=== PATIENT | female | born 1940 | race Caucasian/White ===

== ENCOUNTER → 2016-12-09 | Outpatient (CLI) | payer MEDICARE, BC ==
--- NOTE | 2016-12-09 14:21 | BD ---
EXAMINATION TYPE: MG DEXA axial skeleton. DATE OF EXAM: 12/09/2016 1:07 PM COMPARISON: Previous study dated 08/08/2014 CLINICAL HISTORY: Height: 58 IN Weight: 135 LBS FRAX RISK QUESTIONS: Alcohol (3 or more units per day): NO Family History (Parent hip fracture): NO Glucocorticoids (More than 3mos): NO (Ex: prednisone, prednisolone, methylprednisolone, dexamethasone, and hydrocortisone). History of Fracture in Adulthood: NO Secondary Osteoporosis: 1. Type 1 Diabetes: NO 2. Hyperthyroidism: NO 3. Menopause before 45: AGE 47 4. Malnutrition: NO 5. Chronic liver disease: NO Rheumatoid Arthritis: NO Current Tobacco Use: NO RISK FACTORS HISTORY OF: Active: YES Postmenopausal woman: YES AGE 47 MEDICATIONS: Thyroid Medications: YES Which medication: Levothyroxine How Lon+ YRS Osteoporosis Medications: YES Which medication: Actonel How Lon+ YRS Additional Medications: CALCIUM, VIT D, LEVOTHYROXINE, ACTONEL,AMLOD, OXYCARBAGEPIN, SIMVASTAQTIN,CIT RACAL, OCUVITE, BIOTIN, PB8,VIT B12, LOW ASPIRIN, FOLIC ACID EXAM MEASUREMENTS: Bone mineral densitometry was performed using the [facility]. Bone mineral density as measured about the Lumbar spine is: ----- L1-L4(G/cm2): 1.080 T Score Values are as follows: ----- L2: -1.3 ----- L3: -0.9 ----- L4: -0.6 ----- L1-L4: -0.8 Bone mineral density has: Increased 1.5% since study of: 08/08/2014 Bone mineral density about the R hip (g/cm2): 0.806 Bone mineral density about the L hip (g/cm2): 0.763 T Score values are as follows: -----R Neck: -1.7 -----L Neck: -2.0 -----R Intertrochanter: -1.0 -----L Intertrochanter: -0.9 Bone mineral density has: Decreased -1.1% since study of: 08/08/2014 IMPRESSION: Osteopenia (T Score between -2.5 and -1 as noted by T score values There is slightly increased risk of fracture and the patient may be considered for treatment. Re-Screen 1-2 years. LEONID HIPS AND L2 MAJOR OSTEOPOROTIC FRACTURE RISK: 12.8% HIP FRACTURE: 3.1% NOTE: T-SCORE=SD OF THE YOUNG ADULT MEAN.
== END | disposition home or self-care (01) ==
LOC: RADBDWWP 13:05
PROVIDERS: ATTEND Family Medicine
DX: M85.852 Other specified disorders of bone density and structure, left thigh (principal); M85.851 Other specified disorders of bone density and structure, right thigh; M85.88 Other specified disorders of bone density and structure, other site
CPT/HCPCS: 77080

== ENCOUNTER → 2017-02-22 | Outpatient (CLI) | payer MEDICARE, BC | END | disposition home or self-care (01) | LOC: RADECHMAIN 12:05 | PROVIDERS: ATTEND Family Medicine | DX: I47.1 Supraventricular tachycardia (principal) | CPT/HCPCS: 93225; 93226 ==

== ENCOUNTER 2017-07-20 09:17 | Day surgery (SDC) | payer MEDICARE, BC ==
[2017-07-19 10:26] VITALS: BMI 27.0
[~2017-07-20 09:17] MED LIST: LACTATED RINGERS 1,000 ML IV SCH; MIDAZOLAM 2 MG/2 ML VIAL ONE; PROPOFOL 10 MG/ML 20 ML VIAL IV ONE; fentaNYL (PF) 50 MCG/ML 2 ML AMP ONE
[2017-07-20] MEDS ORDERED: LIDOCAINE 1% 20 ML VIAL (10MG/ML) FOR IV START INTRADERMA ONE (09:42)
[2017-07-20 09:48] VITALS: RESP 16; TEMP 97
[2017-07-20] MEDS ORDERED: PROPOFOL 10 MG/ML 20 ML VIAL IV ONE (10:34)
--- NOTE | 2017-07-20 10:40 | P.GSHP ---
History of Present Illness H&P Date: 07/20/17 Chief Complaint: GI bleed 's is a 76-year-old female referred from Dr. Osuna. Patient presents today for EGD colonoscopy. She's had issues with GI bleed. She see bright red blood per rectum. Past Medical History Past Medical History: Deep Vein Thrombosis (DVT), GERD/Reflux, Hypertension, Seizure Disorder, Thyroid Disorder Additional Past Medical History / Comment(s): LAST SEIZURE A CHILD., STATES CRAMPS AFTER EATING AND BM. History of Any Multi-Drug Resistant Organisms: None Reported Past Surgical History: Breast Surgery, Cholecystectomy, Tonsillectomy Additional Past Surgical History / Comment(s): BREAST REDUCTION Past Anesthesia/Blood Transfusion Reactions: No Reported Reaction Past Psychological History: No Psychological Hx Reported Smoking Status: Never smoker Past Alcohol Use History: Occasional Past Drug Use History: None Reported - Past Family History Mother Family Medical History: No Reported History Medications and Allergies Home Medications Medication Instructions Recorded Confirmed Type Alendronate Sodium [Fosamax] 70 mg PO WE 07/19/17 07/19/17 History Biotin 5 mg PO DAILY 07/19/17 07/19/17 History Calcium Carb/Vitamin D3/Vit K1 1 each PO DAILY 07/19/17 07/19/17 History [Citracal Soft Chew] Cholecalciferol [Vitamin D3] 1,000 unit PO DAILY 07/19/17 07/19/17 History Dicyclomine HCl 10 mg PO TID PRN 07/19/17 07/19/17 History Folic Acid 1 tab PO DAILY 07/19/17 History L.acidoph,Paracasei, B.lactis 1 each PO DAILY 07/19/17 07/19/17 History [Probiotic] Levothyroxine Sodium [Synthroid] 25 mcg PO DAILY 07/19/17 07/19/17 History OXcarbazepine [Trileptal] 150 mg PO BID 07/19/17 07/19/17 History Occuvite 1 tab PO DAILY 07/19/17 History Omeprazole [PriLOSEC] 20 mg PO BID 07/19/17 07/19/17 History Simvastatin [Zocor] 10 mg PO DAILY 07/19/17 07/19/17 History Vitamin B-12 1 tab PO DAILY 07/19/17 History amLODIPine BESYLATE/BENAZEPRIL 1 cap PO DAILY 07/19/17 07/19/17 History [amLODIPine BESYLATE/BENAZEPRIL 5-20 mg] Allergies Allergy/AdvReac Type Severity Reaction Status Date / Time No Known Allergies Allergy Verified 07/19/17 09:55 Surgical - Exam Vital Signs Temp Pulse Resp BP Pulse Ox 97.0 F L 97 16 154/67 97 07/20/17 09:45 07/20/17 09:45 07/20/17 09:45 07/20/17 09:45 07/20/17 09:45 - General well developed, no distress - Eyes PERRL - ENT normal pinna - Neck no masses - Respiratory normal expansion - Cardiovascular Rhythm: regular - Abdomen Abdomen: soft, non tender Assessment and Plan Plan: GI bleed. We'll perform EGD and colonoscopy.
--- NOTE | 2017-07-20 11:10 | P.OP ---
Date of Procedure: 07/20/17 Preoperative Diagnosis: GI bleed Postoperative Diagnosis: Antral gastritis Large hiatal hernia Esophagitis Diverticulosis External hemorrhoids Procedure(s) Performed: Colonoscopy Implants: Anesthesia: MAC Surgeon: Ulices Wiley Pathology: other (Antrum, esophagus) Condition: stable Disposition: PACU Indications for Procedure: Operative Findings: Description of Procedure: The patient was placed on the endoscopy table in the lateral position. She received IV sedation. The gastroscope placed oropharynx and passed into the esophagus and into the stomach. Scope was then placed through the pylorus. The first and second portion of the duodenum appeared normal. The scope was then brought back the antrum and this appeared mildly inflamed. A biopsies performed. The scope was retroflexed and the remainder stomach appeared normal. There was a large hiatal hernia. The GE junction was at 35 cm. The distal esophagus appeared inflamed a biopsies performed. The proximal esophagus appeared normal. Scope was withdrawn for patient. Next digital rectal exam was performed which revealed external hemorrhoids. Flexible colonoscope was then placed patient anus passed throughout the entire colon. The ileocecal valve was visualized. The cecum, ascending and transverse colon appeared normal. In the descending; there is mild diverticular changes. Scope was then brought back the rectum and this appeared normal. Scope was withdrawn for patient.
[2017-07-20 14:11] VITALS: BP 134/63; PULSE 68
== END 2017-07-20 11:47 | disposition home or self-care (01) ==
LOC: ORWHC2ENDO 09:17
PROVIDERS: ATTEND Surgery
DX: K29.50 Unspecified chronic gastritis without bleeding (principal); K21.0 Gastro-esophageal reflux disease with esophagitis; K44.9 Diaphragmatic hernia without obstruction or gangrene; K64.4 Residual hemorrhoidal skin tags; K57.30 Diverticulosis of large intestine without perforation or abscess without bleeding; I10 Essential (primary) hypertension; Z86.718 Personal history of other venous thrombosis and embolism; E07.9 Disorder of thyroid, unspecified; G40.909 Epilepsy, unspecified, not intractable, without status epilepticus; Z79.899 Other long term (current) drug therapy
CPT/HCPCS: 88305; 88342; 45378; 43239; J2704

== ENCOUNTER 2017-12-03 10:59 | Emergency (ER) | payer MEDICARE, BC ==
--- NOTE | 2017-12-03 11:52 | ED ---
General Adult HPI - General Chief complaint: Arrhythmia/Palpitations Stated complaint: Palpitations Time Seen by Provider: 12/03/17 11:34 Source: patient, family, RN notes reviewed Mode of arrival: wheelchair Limitations: no limitations - History of Present Illness Initial comments: Patient is a pleasant 77-year-old female presenting to the emergency Department with palpitations. Symptoms have been intermittent over the past few days. Patient states episodes last for several minutes, up to maybe 20 minutes today. Patient has 3-4 episodes daily. Patient originally states no history of similar symptoms previously. then arrives and states the symptoms have been going on for years. Patient does agree that symptoms have been going on for years. No chest pain. No dyspnea. No syncopal episodes. - Related Data Home Medications Medication Instructions Recorded Confirmed Alendronate Sodium [Fosamax] 70 mg PO WE 07/19/17 12/03/17 Calcium Carb/Vitamin D3/Vit K1 1 tab PO DAILY 07/19/17 12/03/17 [Citracal Soft Chew] Cholecalciferol [Vitamin D3] 5,000 unit PO DAILY 07/19/17 12/03/17 Levothyroxine Sodium [Synthroid] 25 mcg PO DAILY 07/19/17 12/03/17 OXcarbazepine [Trileptal] 150 mg PO BID 07/19/17 12/03/17 Simvastatin [Zocor] 10 mg PO HS 07/19/17 12/03/17 Benazepril HCl 20 mg PO DAILY 08/14/17 12/03/17 Biotin 10,000 mcg PO DAILY 08/14/17 12/03/17 Cyanocobalamin [Vitamin B-12] 500 mcg PO DAILY 08/14/17 12/03/17 Vits A,C,E/Lutein/Minerals 1 tab PO DAILY 08/14/17 12/03/17 [Ocuvite with Lutein Tablet] amLODIPine [Norvasc] 5 mg PO DAILY 08/14/17 12/03/17 Famotidine [Pepcid] 20 mg PO DAILY 12/03/17 12/03/17 Allergies Allergy/AdvReac Type Severity Reaction Status Date / Time No Known Allergies Allergy Verified 12/03/17 11:23 Review of Systems ROS Statement: Those systems with pertinent positive or pertinent negative responses have been documented in the HPI. ROS Other: All systems not noted in ROS Statement are negative. Constitutional: Denies: fever Eyes: Denies: eye pain ENT: Denies: ear pain Respiratory: Denies: cough, dyspnea Cardiovascular: Reports: palpitations. Denies: chest pain Endocrine: Denies: fatigue Gastrointestinal: Denies: abdominal pain Genitourinary: Denies: dysuria Musculoskeletal: Denies: back pain Skin: Denies: rash Neurological: Denies: weakness Past Medical History Past Medical History: Deep Vein Thrombosis (DVT), GERD/Reflux, Hypertension, Seizure Disorder, Thyroid Disorder Additional Past Medical History / Comment(s): LAST SEIZURE A CHILD., STATES CRAMPS AFTER EATING AND BM. History of Any Multi-Drug Resistant Organisms: None Reported Past Surgical History: Breast Surgery, Cholecystectomy, Tonsillectomy Additional Past Surgical History / Comment(s): BREAST REDUCTION Past Anesthesia/Blood Transfusion Reactions: No Reported Reaction Past Psychological History: No Psychological Hx Reported Smoking Status: Never smoker Past Alcohol Use History: Occasional Past Drug Use History: None Reported - Past Family History Mother Family Medical History: No Reported History General Exam Limitations: no limitations General appearance: alert, in no apparent distress Head exam: Present: atraumatic Eye exam: Present: normal appearance, PERRL ENT exam: Present: normal oropharynx Neck exam: Present: normal inspection Respiratory exam: Present: normal lung sounds bilaterally. Absent: chest wall tenderness Cardiovascular Exam: Present: regular rate, normal rhythm Expanded Peripheral pulses: 2+: Radial (R), Radial (L), Dorsalis Pedis (R), Dorsalis Pedis (L) GI/Abdominal exam: Present: soft. Absent: tenderness Extremities exam: Present: normal inspection. Absent: pedal edema, calf tenderness Neurological exam: Present: alert, oriented X3, CN II-XII intact. Absent: motor sensory deficit Expanded Motor strength exam: RUE: 5, LUE: 5, RLE: 5, LLE: 5 Psychiatric exam: Present: normal affect, normal mood Skin exam: Present: normal color Course Vital Signs 12/03/17 12/03/17 11:04 12:07 Temperature 97.5 F L Pulse Rate 85 61 Respiratory 17 16 Rate Blood Pressure 172/77 161/72 O2 Sat by Pulse 94 L 99 Oximetry EKG Findings - EKG Comments: EKG Findings:: Normal sinus rhythm 80. MO 168. QRS 90. QT 378. QTC 435. Normal axis. LVH. No acute ST change. Medical Decision Making - Medical Decision Making Patient reevaluated and resting comfortably in bed. Patient remained symptom- free at this time. Patient and family updated on results and need for follow- up. - Lab Data Result diagrams: 12/03/17 11:18 12/03/17 11:18 Lab Results 12/03/17 12/03/17 12/03/17 Range/Units 11:18 11:18 11:18 WBC 9.6 (3.8-10.6) k/uL RBC 4.82 (3.80-5.40) m/uL Hgb 14.8 (11.4-16.0) gm/dL Hct 45.4 (34.0-46.0) % MCV 94.2 (80.0-100.0) fL MCH 30.6 (25.0-35.0) pg MCHC 32.5 (31.0-37.0) g/dL RDW 14.4 (11.5-15.5) % Plt Count 237 (150-450) k/uL Neutrophils % 73 % Lymphocytes % 17 % Monocytes % 7 % Eosinophils % 1 % Basophils % 0 % Neutrophils # 7.0 (1.3-7.7) k/uL Lymphocytes # 1.6 (1.0-4.8) k/uL Monocytes # 0.7 (0-1.0) k/uL Eosinophils # 0.1 (0-0.7) k/uL Basophils # 0.0 (0-0.2) k/uL PT (9.0-12.0) sec INR (<1.2) APTT (22.0-30.0) sec Sodium 141 (137-145) mmol/L Potassium 5.2 H (3.5-5.1) mmol/L Chloride 101 (98-107) mmol/L Carbon Dioxide 28 (22-30) mmol/L Anion Gap 12 mmol/L BUN 19 H (7-17) mg/dL Creatinine 0.80 (0.52-1.04) mg/dL Est GFR (MDRD) Af Amer >60 (>60 ml/min/1.73 sqM) Est GFR (MDRD) Non-Af >60 (>60 ml/min/1.73 sqM) Glucose 98 (74-99) mg/dL Calcium 10.2 (8.4-10.2) mg/dL Magnesium 2.1 (1.6-2.3) mg/dL Total Bilirubin 0.4 (0.2-1.3) mg/dL AST 28 (14-36) U/L ALT 24 (9-52) U/L Alkaline Phosphatase 54 (38-126) U/L Total Creatine Kinase 48 (30-135) U/L CK-MB (CK-2) 0.8 (0.0-2.4) ng/mL CK-MB (CK-2) Rel Index 1.7 Troponin I <0.012 (0.000-0.034) ng/mL Total Protein 7.8 (6.3-8.2) g/dL Albumin 4.9 (3.5-5.0) g/dL TSH 0.359 L (0.465-4.680) mIU/L Free T4 0.97 (0.78-2.19) ng/dL Free T3 pg/mL 3.4 (2.8-5.3) pg/ml Urine Color Urine Appearance (Clear) Urine pH (5.0-8.0) Ur Specific [place] (1.001-1.035) Urine Protein (Negative) Urine Glucose (UA) (Negative) Urine Ketones (Negative) Urine Blood (Negative) Urine Nitrite (Negative) Urine Bilirubin (Negative) Urine Urobilinogen (<2.0) mg/dL Ur Leukocyte Esterase (Negative) 12/03/17 12/03/17 Range/Units 11:18 12:44 WBC (3.8-10.6) k/uL RBC (3.80-5.40) m/uL Hgb (11.4-16.0) gm/dL Hct (34.0-46.0) % MCV (80.0-100.0) fL MCH (25.0-35.0) pg MCHC (31.0-37.0) g/dL RDW (11.5-15.5) % Plt Count (150-450) k/uL Neutrophils % % Lymphocytes % % Monocytes % % Eosinophils % % Basophils % % Neutrophils # (1.3-7.7) k/uL Lymphocytes # (1.0-4.8) k/uL Monocytes # (0-1.0) k/uL Eosinophils # (0-0.7) k/uL Basophils # (0-0.2) k/uL PT 9.7 (9.0-12.0) sec INR 1.0 (<1.2) APTT 25.0 (22.0-30.0) sec Sodium (137-145) mmol/L Potassium (3.5-5.1) mmol/L Chloride (98-107) mmol/L Carbon Dioxide (22-30) mmol/L Anion Gap mmol/L BUN (7-17) mg/dL Creatinine (0.52-1.04) mg/dL Est GFR (MDRD) Af Amer (>60 ml/min/1.73 sqM) Est GFR (MDRD) Non-Af (>60 ml/min/1.73 sqM) Glucose (74-99) mg/dL Calcium (8.4-10.2) mg/dL Magnesium (1.6-2.3) mg/dL Total Bilirubin (0.2-1.3) mg/dL AST (14-36) U/L ALT (9-52) U/L Alkaline Phosphatase (38-126) U/L Total Creatine Kinase (30-135) U/L CK-MB (CK-2) (0.0-2.4) ng/mL CK-MB (CK-2) Rel Index Troponin I (0.000-0.034) ng/mL Total Protein (6.3-8.2) g/dL Albumin (3.5-5.0) g/dL TSH (0.465-4.680) mIU/L Free T4 (0.78-2.19) ng/dL Free T3 pg/mL (2.8-5.3) pg/ml Urine Color Light Yellow Urine Appearance Clear (Clear) Urine pH 7.0 (5.0-8.0) Ur Specific [place] 1.008 (1.001-1.035) Urine Protein Negative (Negative) Urine Glucose (UA) Negative (Negative) Urine Ketones Negative (Negative) Urine Blood Negative (Negative) Urine Nitrite Negative (Negative) Urine Bilirubin Negative (Negative) Urine Urobilinogen <2.0 (<2.0) mg/dL Ur Leukocyte Esterase Negative (Negative) - Radiology Data Interpreted by me: Chest x-ray shows no acute process Disposition Clinical Impression: Palpitations Disposition: HOME SELF-CARE Condition: Stable Instructions: Palpitations (ED) Additional Instructions: Please follow-up with Dr. Osuna and cardiology in the next couple days for recheck. Consider Holter monitor. Consider echo. Return for increased heart rate, passing out, pain or difficulty breathing, worsening symptoms or other concerns. Referrals: Evangelista Osuna DO [Primary Care Provider] - 1-2 days Time of Disposition: 13:16
[2017-12-03 12:18] LABS: Basophils % (A) 0 %; Eosinophils # (A) 0.1 k/uL (0-0.7); Eosinophils % (A) 1 %; HCT 45.4 % (34.0-46.0); HGB 14.8 gm/dL (11.4-16.0); Lymphocytes # (A) 1.6 k/uL (1.0-4.8); Lymphocytes % (A) 17 %; MCH 30.6 pg (25.0-35.0); MCHC 32.5 g/dL (31.0-37.0); MCV 94.2 fL (80.0-100.0); Mean Platelet Volume 7.8; Monocytes # (A) 0.7 k/uL (0-1.0); Monocytes % (A) 7 %; Neutrophils % (A) 73 %; Platelet Count 237 k/uL (150-450); RBC 4.82 m/uL (3.80-5.40); RDW 14.4 % (11.5-15.5); WBC 9.6 k/uL (3.8-10.6)
[2017-12-03 12:22] LABS: ALT 24 U/L (9-52); AST 28 U/L (14-36); Albumin 4.9 g/dL (3.5-5.0); Alkaline Phosphatase 54 U/L (38-126); Anion Gap 12 mmol/L; Blood Urea Nitrogen 19 mg/dL (7-17); Calcium 10.2 mg/dL (8.4-10.2); Carbon Dioxide 28 mmol/L (22-30); Chloride 101 mmol/L (98-107); Glucose 98 mg/dL (74-99); Magnesium 2.1 mg/dL (1.6-2.3); Potassium 5.2 mmol/L (3.5-5.1); Sodium 141 mmol/L (137-145); Total Bilirubin 0.4 mg/dL (0.2-1.3); Total Protein 7.8 g/dL (6.3-8.2)
[2017-12-03 12:26] LABS: Creatine Kinase 48 U/L (30-135)
[2017-12-03 12:32] LABS: Prothrombin Time 9.7 sec (9.0-12.0)
[2017-12-03 12:38] LABS: T4, Free (Free Thyroxine) 0.97 ng/dL (0.78-2.19)
[2017-12-03 12:40] LABS: Creatine Kinase MB 0.8 ng/mL (0.0-2.4); Troponin I <0.012 ng/mL (0.000-0.034)
[2017-12-03 13:03] LABS: Appearance,Urine Clear (Clear); Bilirubin,Urine Negative (Negative); Blood,Urine Negative (Negative); Color,Urine Light Yellow; Glucose,Urine (UA) Negative (Negative); Ketones,Urine Negative (Negative); Leukocyte Esterase,Urine Negative (Negative); Nitrite,Urine Negative (Negative); Protein,Urine Negative (Negative); Specific Gravity,Urine 1.008 (1.001-1.035); Urobilinogen,Urine <2.0 mg/dL (<2.0)
--- NOTE | 2017-12-03 13:25 | XR ---
EXAMINATION TYPE: XR chest 2V DATE OF EXAM: 12/03/2017 COMPARISON: NONE HISTORY: Erratic heart rate. Chest pain. TECHNIQUE: Frontal and lateral views of the chest are obtained. FINDINGS: There is no focal air space opacity, pleural effusion, or pneumothorax seen. The cardiac silhouette size is within normal limits. The osseous structures are intact. Cholecystectomy clips a re noted within the right upper quadrant. IMPRESSION: No acute cardiopulmonary process.
[2017-12-03 13:27] VITALS: BP 142/67; PULSE 60; RESP 17; TEMP 97.7
== END 2017-12-03 13:30 | disposition home or self-care (01) ==
LOC: EC 10:59
DX: R00.2 Palpitations (principal); K21.9 Gastro-esophageal reflux disease without esophagitis; I10 Essential (primary) hypertension; E07.9 Disorder of thyroid, unspecified; Z86.69 Personal history of other diseases of the nervous system and sense organs; Z79.899 Other long term (current) drug therapy
CPT/HCPCS: 36415; 71046; 80053; 81003; 82550; 82553; 83735; 84439; 84443; 84481; 84484; 85025; 85610; 85730; 93005; 99285

== ENCOUNTER → 2018-03-08 | Outpatient (CLI) | payer MEDICARE, BC ==
--- NOTE | 2018-03-08 13:46 | US ---
EXAMINATION TYPE: US pelvic complete DATE OF EXAM: 03/08/2018 COMPARISON: CT abdomen pelvis January 07, 2014 CLINICAL HISTORY: R10.2 pelvic pain. Pelvic cramping, bloating, prolapsed uterus TECHNIQUE: Transabdominal (TA). Transabdominal sonographic images of the pelvis were acquired. Tra nsvaginal not done due to prolapsed uterus Date of LMP: unknown EXAM MEASUREMENTS: Uterus: 7.6 x 3.8 x 4.7 cm Endometrial Stripe: 0.4 cm Right Ovary: unable to visualize Left Ovary: unable to visualize 1. Uterus: Anteverted heterogeneous 2. Endometrium: appears wnl as visualized 3. Right Ovary: Obscured by overlying bowel gas 4. Left Ovary: Obscured by overlying bowel gas 5. Bilateral Adnexa: appears wnl 6. Posterior cul-de-sac: wnl Visualized uterus is heterogeneous and anteverted on transabdominal investigation. Endometrium is not well seen and presumed atrophic. IMPRESSION: No significant findings seen on transabdominal pelvic ultrasound to account for patient's symptoms.
== END | disposition home or self-care (01) ==
LOC: RADUSWWP 11:48
PROVIDERS: ATTEND Obstetrics & Gynecology
DX: R10.2 Pelvic and perineal pain (principal)
CPT/HCPCS: 76856

== ENCOUNTER 2018-08-17 08:14 | Inpatient (IN) | payer MEDICARE, BC ==
[2018-08-17] MEDS ORDERED: DILTIAZEM DRIP BOLUS FROM BAG 1 MG SOLN IV ONE (08:28)
--- NOTE | 2018-08-17 08:43 | ED ---
General Adult HPI - General Chief complaint: Shortness of Breath Stated complaint: SOB Time Seen by Provider: 08/17/18 08:21 Source: patient, EMS, RN notes reviewed, old records reviewed Mode of arrival: EMS Limitations: no limitations - History of Present Illness Initial comments: 77-year-old female presents with chief complaint dyspnea and palpitations. Patient's symptoms began this morning. She does report a previous history of irregular heartbeat. She is not on any rate controlling medication or anticoagulants. She is found by EMS to be in A. fib with RVR. She states that she's had some mild nausea associated with her symptoms. She does report a cough which is productive of white sputum. No history of COPD or asthma. Patient never smoked. Denies lower extremity swelling or pain. Patient's symptoms began this morning, with no significant preceding symptoms. Denies central chest pain. - Related Data Home Medications Medication Instructions Recorded Confirmed Alendronate Sodium [Fosamax] 70 mg PO WE 07/19/17 08/17/18 Calcium Carb/Vitamin D3/Vit K1 1 tab PO DAILY 07/19/17 08/17/18 [Citracal Soft Chew] Cholecalciferol [Vitamin D3] 5,000 unit PO DAILY 07/19/17 08/17/18 Levothyroxine Sodium [Synthroid] 25 mcg PO DAILY 07/19/17 08/17/18 OXcarbazepine [Trileptal] 150 mg PO BID 07/19/17 08/17/18 Simvastatin [Zocor] 10 mg PO HS 07/19/17 08/17/18 Benazepril HCl 20 mg PO DAILY 08/14/17 08/17/18 Biotin 10,000 mcg PO DAILY 08/14/17 08/17/18 Cyanocobalamin [Vitamin B-12] 500 mcg PO DAILY 08/14/17 08/17/18 Vits A,C,E/Lutein/Minerals 1 tab PO DAILY 08/14/17 08/17/18 [Ocuvite with Lutein Tablet] amLODIPine [Norvasc] 5 mg PO DAILY 08/14/17 08/17/18 Famotidine [Pepcid] 20 mg PO DAILY 12/03/17 08/17/18 Allergies Allergy/AdvReac Type Severity Reaction Status Date / Time No Known Allergies Allergy Verified 08/17/18 08:53 Review of Systems ROS Statement: Those systems with pertinent positive or pertinent negative responses have been documented in the HPI. ROS Other: All systems not noted in ROS Statement are negative. Past Medical History Past Medical History: Deep Vein Thrombosis (DVT), GERD/Reflux, Hypertension, Seizure Disorder, Thyroid Disorder Additional Past Medical History / Comment(s): LAST SEIZURE A CHILD., STATES CRAMPS AFTER EATING AND BM. History of Any Multi-Drug Resistant Organisms: None Reported Past Surgical History: Breast Surgery, Cholecystectomy, Tonsillectomy Additional Past Surgical History / Comment(s): BREAST REDUCTION Past Anesthesia/Blood Transfusion Reactions: No Reported Reaction Past Psychological History: No Psychological Hx Reported Smoking Status: Never smoker Past Alcohol Use History: Occasional Past Drug Use History: None Reported - Past Family History Mother Family Medical History: No Reported History General Exam Limitations: no limitations General appearance: alert, in no apparent distress Head exam: Present: atraumatic, normocephalic Eye exam: Present: normal appearance, PERRL ENT exam: Present: normal exam Neck exam: Present: normal inspection. Absent: tenderness Respiratory exam: Present: normal lung sounds bilaterally. Absent: respiratory distress, wheezes Cardiovascular Exam: Present: tachycardia, irregular rhythm GI/Abdominal exam: Present: soft. Absent: distended, tenderness Extremities exam: Present: normal inspection, normal capillary refill. Absent: pedal edema Neurological exam: Present: alert, oriented X3, CN II-XII intact. Absent: motor sensory deficit Psychiatric exam: Present: normal affect, normal mood Skin exam: Present: warm, dry, intact. Absent: cyanosis, diaphoretic Course Vital Signs 08/17/18 08/17/18 08/17/18 08:27 08:50 09:23 Temperature 97.8 F Pulse Rate 118 H 126 H Respiratory 18 18 18 Rate Blood Pressure 120/69 111/56 O2 Sat by Pulse 98 95 Oximetry 08/17/18 08/17/18 12:10 13:00 Temperature Pulse Rate 83 72 Respiratory 18 98 H Rate Blood Pressure 115/63 144/64 O2 Sat by Pulse 100 95 Oximetry EKG Findings - EKG Comments: EKG Findings:: EKG: Obtained at 827, atrial fibrillation with RVR, there is some ST segment depression in the lateral precordium, no ST segment elevation, rate of 126, QRS duration 86, QTC 477. EKG obtained at 1156, normal sinus rhythm, LVH, rate of 65, AR interval 164, QRS duration 90, QTC [address] segment elevation Medical Decision Making - Medical Decision Making 77-year-old female presenting with dyspnea and palpitations per patient found to be in A. fib, no history of atrial fibrillation. She started on Cardizem and heparin in the emergency department. She has normal CBC, negative troponin , negative BNP, normal CMP, d-dimer is elevated and given her dyspnea and tachycardia, CT angiography is obtained which is negative for PE, there is evidence of pulmonary hypertension. Chest x-ray shows concern for venous congestion versus atypical pneumonia. This is likely more related to venous congestion, echo will be obtained. She is given a dose of azithromycin in the emergency department at the chance this is an atypical pneumonia. She will be admitted for telemetry, and cardiology consultation. - Lab Data Result diagrams: 08/17/18 08:40 08/17/18 08:40 Lab Results 08/17/18 08/17/18 08/17/18 Range/Units 08:40 08:40 08:40 WBC 6.3 (3.8-10.6) k/uL RBC 4.45 (3.80-5.40) m/uL Hgb 13.4 (11.4-16.0) gm/dL Hct 39.5 (34.0-46.0) % MCV 88.8 (80.0-100.0) fL MCH 30.2 (25.0-35.0) pg MCHC 34.0 (31.0-37.0) g/dL RDW 13.0 (11.5-15.5) % Plt Count 216 (150-450) k/uL Neutrophils % 58 % Lymphocytes % 27 % Monocytes % 9 % Eosinophils % 2 % Basophils % 1 % Neutrophils # 3.7 (1.3-7.7) k/uL Lymphocytes # 1.7 (1.0-4.8) k/uL Monocytes # 0.6 (0-1.0) k/uL Eosinophils # 0.1 (0-0.7) k/uL Basophils # 0.0 (0-0.2) k/uL PT (9.0-12.0) sec INR (<1.2) APTT (22.0-30.0) sec D-Dimer (<0.60) mg/L FEU Sodium 134 L (137-145) mmol/L Potassium 3.8 (3.5-5.1) mmol/L Chloride 103 (98-107) mmol/L Carbon Dioxide 21 L (22-30) mmol/L Anion Gap 10 mmol/L BUN 13 (7-17) mg/dL Creatinine 0.56 (0.52-1.04) mg/dL Est GFR (CKD-EPI)AfAm >90 (>60 ml/min/1.73 sqM) Est GFR (CKD-EPI)NonAf >90 (>60 ml/min/1.73 sqM) Glucose 125 H (74-99) mg/dL Plasma Lactic Acid Yoshi (0.7-2.0) mmol/L Calcium 8.9 (8.4-10.2) mg/dL Magnesium 1.8 (1.6-2.3) mg/dL Total Bilirubin 0.5 (0.2-1.3) mg/dL AST 23 (14-36) U/L ALT 21 (9-52) U/L Alkaline Phosphatase 41 (38-126) U/L Total Creatine Kinase 61 (30-135) U/L CK-MB (CK-2) 1.1 (0.0-2.4) ng/mL CK-MB (CK-2) Rel Index 1.8 Troponin I <0.012 (0.000-0.034) ng/mL NT-Pro-B Natriuret Pep pg/mL Total Protein 6.4 (6.3-8.2) g/dL Albumin 3.9 (3.5-5.0) g/dL Urine Color Urine Appearance (Clear) Urine pH (5.0-8.0) Ur Specific [place] (1.001-1.035) Urine Protein (Negative) Urine Glucose (UA) (Negative) Urine Ketones (Negative) Urine Blood (Negative) Urine Nitrite (Negative) Urine Bilirubin (Negative) Urine Urobilinogen (<2.0) mg/dL Ur Leukocyte Esterase (Negative) Urine WBC (0-5) /hpf Ur Squamous Epith Cells (0-4) /hpf Urine Mucus (None) /hpf 08/17/18 08/17/18 08/17/18 Range/Units 08:40 08:40 08:40 WBC (3.8-10.6) k/uL RBC (3.80-5.40) m/uL Hgb (11.4-16.0) gm/dL Hct (34.0-46.0) % MCV (80.0-100.0) fL MCH (25.0-35.0) pg MCHC (31.0-37.0) g/dL RDW (11.5-15.5) % Plt Count (150-450) k/uL Neutrophils % % Lymphocytes % % Monocytes % % Eosinophils % % Basophils % % Neutrophils # (1.3-7.7) k/uL Lymphocytes # (1.0-4.8) k/uL Monocytes # (0-1.0) k/uL Eosinophils # (0-0.7) k/uL Basophils # (0-0.2) k/uL PT 10.1 (9.0-12.0) sec INR 1.0 (<1.2) APTT 25.6 (22.0-30.0) sec D-Dimer 1.19 H (<0.60) mg/L FEU Sodium (137-145) mmol/L Potassium (3.5-5.1) mmol/L Chloride (98-107) mmol/L Carbon Dioxide (22-30) mmol/L Anion Gap mmol/L BUN (7-17) mg/dL Creatinine (0.52-1.04) mg/dL Est GFR (CKD-EPI)AfAm (>60 ml/min/1.73 sqM) Est GFR (CKD-EPI)NonAf (>60 ml/min/1.73 sqM) Glucose (74-99) mg/dL Plasma Lactic Acid Yoshi 1.9 (0.7-2.0) mmol/L Calcium (8.4-10.2) mg/dL Magnesium (1.6-2.3) mg/dL Total Bilirubin (0.2-1.3) mg/dL AST (14-36) U/L ALT (9-52) U/L Alkaline Phosphatase (38-126) U/L Total Creatine Kinase (30-135) U/L CK-MB (CK-2) (0.0-2.4) ng/mL CK-MB (CK-2) Rel Index Troponin I (0.000-0.034) ng/mL NT-Pro-B Natriuret Pep pg/mL Total Protein (6.3-8.2) g/dL Albumin (3.5-5.0) g/dL Urine Color Urine Appearance (Clear) Urine pH (5.0-8.0) Ur Specific [place] (1.001-1.035) Urine Protein (Negative) Urine Glucose (UA) (Negative) Urine Ketones (Negative) Urine Blood (Negative) Urine Nitrite (Negative) Urine Bilirubin (Negative) Urine Urobilinogen (<2.0) mg/dL Ur Leukocyte Esterase (Negative) Urine WBC (0-5) /hpf Ur Squamous Epith Cells (0-4) /hpf Urine Mucus (None) /hpf 08/17/18 08/17/18 Range/Units 08:40 10:30 WBC (3.8-10.6) k/uL RBC (3.80-5.40) m/uL Hgb (11.4-16.0) gm/dL Hct (34.0-46.0) % MCV (80.0-100.0) fL MCH (25.0-35.0) pg MCHC (31.0-37.0) g/dL RDW (11.5-15.5) % Plt Count (150-450) k/uL Neutrophils % % Lymphocytes % % Monocytes % % Eosinophils % % Basophils % % Neutrophils # (1.3-7.7) k/uL Lymphocytes # (1.0-4.8) k/uL Monocytes # (0-1.0) k/uL Eosinophils # (0-0.7) k/uL Basophils # (0-0.2) k/uL PT (9.0-12.0) sec INR (<1.2) APTT (22.0-30.0) sec D-Dimer (<0.60) mg/L FEU Sodium (137-145) mmol/L Potassium (3.5-5.1) mmol/L Chloride (98-107) mmol/L Carbon Dioxide (22-30) mmol/L Anion Gap mmol/L BUN (7-17) mg/dL Creatinine (0.52-1.04) mg/dL Est GFR (CKD-EPI)AfAm (>60 ml/min/1.73 sqM) Est GFR (CKD-EPI)NonAf (>60 ml/min/1.73 sqM) Glucose (74-99) mg/dL Plasma Lactic Acid Yoshi (0.7-2.0) mmol/L Calcium (8.4-10.2) mg/dL Magnesium (1.6-2.3) mg/dL Total Bilirubin (0.2-1.3) mg/dL AST (14-36) U/L ALT (9-52) U/L Alkaline Phosphatase (38-126) U/L Total Creatine Kinase (30-135) U/L CK-MB (CK-2) (0.0-2.4) ng/mL CK-MB (CK-2) Rel Index Troponin I (0.000-0.034) ng/mL NT-Pro-B Natriuret Pep 289 pg/mL Total Protein (6.3-8.2) g/dL Albumin (3.5-5.0) g/dL Urine Color Light Yellow Urine Appearance Clear (Clear) Urine pH 7.5 (5.0-8.0) Ur Specific [place] 1.008 (1.001-1.035) Urine Protein Negative (Negative) Urine Glucose (UA) Negative (Negative) Urine Ketones 1+ H (Negative) Urine Blood Negative (Negative) Urine Nitrite Negative (Negative) Urine Bilirubin Negative (Negative) Urine Urobilinogen <2.0 (<2.0) mg/dL Ur Leukocyte Esterase Large H (Negative) Urine WBC 2 (0-5) /hpf Ur Squamous Epith Cells 1 (0-4) /hpf Urine Mucus Rare H (None) /hpf Critical Care Time Critical Care Time: Yes Total Critical Care Time: 35 Disposition Clinical Impression: New onset atrial fibrillation Disposition: ADMITTED IP TO THIS HOSP Condition: Stable Is patient prescribed a controlled substance at d/c from ED?: No Referrals: Evangelista Osuna DO [Primary Care Provider] - 1-2 days Decision to Admit Reason: Admit from EC Decision Date: 08/17/18 Decision Time: 13:35
[2018-08-17] MEDS ORDERED: DILTIAZEM 50 MG in SODIUM CHLORIDE 0.9% 40 ML IV SCH (08:45)
[2018-08-17 09:04] LABS: Basophils % (A) 1 %; Eosinophils # (A) 0.1 k/uL (0-0.7); Eosinophils % (A) 2 %; HCT 39.5 % (34.0-46.0); HGB 13.4 gm/dL (11.4-16.0); Lymphocytes # (A) 1.7 k/uL (1.0-4.8); Lymphocytes % (A) 27 %; MCH 30.2 pg (25.0-35.0); MCV 88.8 fL (80.0-100.0); Mean Platelet Volume 6.8; Monocytes # (A) 0.6 k/uL (0-1.0); Monocytes % (A) 9 %; Neutrophils # (A) 3.7 k/uL (1.3-7.7); Neutrophils % (A) 58 %; Platelet Count 216 k/uL (150-450); RBC 4.45 m/uL (3.80-5.40); WBC 6.3 k/uL (3.8-10.6)
--- NOTE | 2018-08-17 09:12 | XR ---
EXAMINATION TYPE: XR chest 2V DATE OF EXAM: 08/17/2018 COMPARISON: 12/03/2017 TECHNIQUE: PA and lateral views submitted. HISTORY: Shortness of breath FINDINGS: There is diffuse interstitial pattern. There is arthropathy of the shoulders and atherosclerotic denney ge aorta. No pneumothorax. Heart size stable. No consolidation. IMPRESSION: 1. Interval development of a diffuse interstitial pattern. Differential diagnosis includes venous con gestion, bronchitis, interstitial pneumonitis or atypical pneumonia.
[2018-08-17 09:15] LABS: ALT 21 U/L (9-52); AST 23 U/L (14-36); Albumin 3.9 g/dL (3.5-5.0); Alkaline Phosphatase 41 U/L (38-126); Anion Gap 10 mmol/L; Blood Urea Nitrogen 13 mg/dL (7-17); Calcium 8.9 mg/dL (8.4-10.2); Carbon Dioxide 21 mmol/L (22-30); Chloride 103 mmol/L (98-107); Glucose 125 mg/dL (74-99); Magnesium 1.8 mg/dL (1.6-2.3); Partial Thromboplastin Time 25.6 sec (22.0-30.0); Potassium 3.8 mmol/L (3.5-5.1); Prothrombin Time 10.1 sec (9.0-12.0); Sodium 134 mmol/L (137-145); Total Bilirubin 0.5 mg/dL (0.2-1.3); Total Protein 6.4 g/dL (6.3-8.2)
[2018-08-17 09:46] LABS: Creatine Kinase 61 U/L (30-135)
[2018-08-17 09:59] LABS: Creatine Kinase MB 1.1 ng/mL (0.0-2.4); Troponin I <0.012 ng/mL (0.000-0.034)
[2018-08-17] MEDS ORDERED: FUROSEMIDE 10 MG/ML 2 ML VIAL IV STA (10:19)
[2018-08-17] MEDS ORDERED: HEPARIN SODIUM,PORCINE 5,000 UNIT/ML 1 ML VIAL IV PRN (10:39)
[2018-08-17] MEDS ORDERED: HEPARIN SODIUM,PORCINE 5,000 UNIT/ML 1 ML VIAL IV ONE (10:39)
[2018-08-17 11:44] LABS: Appearance,Urine Clear (Clear); Bilirubin,Urine Negative (Negative); Blood,Urine Negative (Negative); Color,Urine Light Yellow; Glucose,Urine (UA) Negative (Negative); Ketones,Urine 1+ (Negative); Leukocyte Esterase,Urine Large (Negative); Mucus,Urine Rare /hpf; Nitrite,Urine Negative (Negative); PH, Urine 7.5 (5.0-8.0); Protein,Urine Negative (Negative); Specific Gravity,Urine 1.008 (1.001-1.035); Squamous Epithelial Cell,Urine 1 /hpf (0-4); Urobilinogen,Urine <2.0 mg/dL (<2.0); WBC,Urine 2 /hpf (0-5)
[2018-08-17] MEDS ORDERED: AZITHROMYCIN 500 MG in SODIUM CHLORIDE 0.9% 250 ML IVPB STA (11:55)
--- NOTE | 2018-08-17 13:14 | CT ---
EXAMINATION TYPE: CT angio chest DATE OF EXAM: 08/17/2018 COMPARISON: Chest x-ray same date HISTORY: Chest pain with difficulty breathing CT DLP: 244.4 mGycm Automated exposure control for dose reduction was used. CONTRAST: CTA scan of the thorax is performed with IV Contrast, patient injected with 100 mL of Isovue 370, pul monary embolism protocol. MIP images are created and reviewed. 3D reconstructed images are created on an independent workstation and reviewed. FINDINGS: LUNGS: The lungs are grossly clear, there is no concerning parenchymal mass or nodule identified. T here is no pleural effusion or pneumothorax seen. The tracheobronchial tree is patent. Suspect mild prominence of interstitium AORTA: No additional significant abnormality is seen. MEDIASTINUM: There is satisfactory enhancement of the pulmonary artery and its branches, there is no CT evidence for pulmonary embolism. There are no greater than 1 cm hilar or mediastinal lymph nodes. No pericardial effusion is seen. Pulmonary artery appears prominently, heart size borderline incre ased. There are some coronary artery calcifications. OTHER: Partial fixed intrathoracic stomach is present. Thyroid gland appears prominently, correlate for possible thyroiditis. Left adrenal gland shows an associated nodular density measuring 16 mm whic h may represent adenoma, patient is post cholecystectomy Azygos lobe noted incidentally. IMPRESSION: CORRELATE FOR POSSIBLE PULMONARY ARTERY HYPERTENSION. THERE IS AN IMPROVEMENT IN THE INTERSTITIUM COM PARED TO PRIOR EXAM SAME DATE EARLIER TIME. FINDINGS IN THE THYROID IS DESCRIBED, CORRELATE FOR POSSI BLE THYROIDITIS. Additional findings above. No evident pulmonary embolism.
[2018-08-17] MEDS: HEPARIN SOD,PORK IN 0.45% NACL 25,000 UNIT in 0.45% NACL 1 500ML.BAG IV SCH (13:20)
[2018-08-17] MEDS ORDERED: ACETAMINOPHEN TAB 325 MG TAB PO PRN (13:30)
[2018-08-17] MEDS ORDERED: NALOXONE 0.4 MG/ML 1 ML VIAL IV PRN (13:30)
[2018-08-17] MEDS ORDERED: FUROSEMIDE 10 MG/ML 2 ML VIAL IV ONE (16:43)
--- NOTE | 2018-08-17 17:35 | P.HPIM ---
History of Present Illness 72-year-old pleasant female came in with complains of shortness of breath, diaphoresis and when questioned palpitations with mild S pain denied any orthopnea proximal nocturnal dyspnea patient is symptoms started today. Patient is found to be in atrial fibrillation with rapid ventricular rate patient was started on Cardizem presently heart rate has come down patient is sinus rhythm patient was started on metoprolol. Patient denied any fever chills nausea vomiting dysuria. Patient is also found to have mildly elevated d -dimer because of which her CT angios the chest was obtained. Chest x-ray did show pulmonary edema which improved with 20 mg of IV Lasix, CT angios showed improved pulmonary edema. I'll order one more 20 mg of IV Lasix. BNP is only 200. Echocardiogram will be obtained patient had a previous echocardiogram about any ago which showed normal ejection fraction. Patient is on IV heparin anticoagulation will need anticoagulation upon discharge. Cardiology was consulted troponin is negative Review of Systems REVIEW OF SYSTEMS: CONSTITUTIONAL: No fever, no malaise, no fatigue. HEENT: No recent visual problems or hearing problems. Denied any sore throat. CARDIOVASCULAR: No, orthopnea, PND, no syncope. PULMONARY: , no cough, no hemoptysis. GASTROINTESTINAL: No diarrhea, no nausea, no vomiting, no abdominal pain. Normoactive bowel sounds. NEUROLOGICAL: No headaches, no weakness, no numbness. HEMATOLOGICAL: Denies any bleeding or petechiae. GENITOURINARY: Denies any burning micturition, frequency, or urgency. MUSCULOSKELETAL/RHEUMATOLOGICAL: Denies any joint pain, swelling, or any muscle pain. ENDOCRINE: Denies any polyuria or polydipsia. The rest of the 14-point review of systems is negative. Past Medical History Past Medical History: Deep Vein Thrombosis (DVT), GERD/Reflux, Hyperlipidemia, Hypertension, Seizure Disorder, Thyroid Disorder Additional Past Medical History / Comment(s): Irregular heart beat, DVT thinks L leg, last seizure 30-40 yrs ago, hypothyroid, goiter, bronchitis, sinus headaches, diverticulosis, benign polyps, hemorrhoids, vitamin D deficiency, osteoporosis, vertigo. History of Any Multi-Drug Resistant Organisms: None Reported Past Surgical History: Breast Surgery, Cholecystectomy, Tonsillectomy Additional Past Surgical History / Comment(s): Colonoscopies with polypectomies (benign), bilateral breast reductions, Past Anesthesia/Blood Transfusion Reactions: No Reported Reaction Smoking Status: Never smoker - Past Family History Mother Family Medical History: CVA/TIA Additional Family Medical History / Comment(s): Mother had TIAs and at the age of 100yrs from a CVA Father Family Medical History: COPD Additional Family Medical History / Comment(s): Father had heart problems. He from emphysema at the age of 70yrs. Medications and Allergies Home Medications Medication Instructions Recorded Confirmed Type Alendronate Sodium [Fosamax] 70 mg PO WE 07/19/17 08/17/18 History Calcium Carb/Vitamin D3/Vit K1 1 tab PO DAILY 07/19/17 08/17/18 History [Citracal Soft Chew] Cholecalciferol [Vitamin D3] 5,000 unit PO DAILY 07/19/17 08/17/18 History Levothyroxine Sodium [Synthroid] 25 mcg PO DAILY 07/19/17 08/17/18 History OXcarbazepine [Trileptal] 150 mg PO BID 07/19/17 08/17/18 History Simvastatin [Zocor] 10 mg PO HS 07/19/17 08/17/18 History Benazepril HCl 20 mg PO DAILY 08/14/17 08/17/18 History Biotin 10,000 mcg PO DAILY 08/14/17 08/17/18 History Cyanocobalamin [Vitamin B-12] 500 mcg PO DAILY 08/14/17 08/17/18 History Vits A,C,E/Lutein/Minerals 1 tab PO DAILY 08/14/17 08/17/18 History [Ocuvite with Lutein Tablet] amLODIPine [Norvasc] 5 mg PO DAILY 08/14/17 08/17/18 History Famotidine [Pepcid] 20 mg PO DAILY 12/03/17 08/17/18 History Allergies Allergy/AdvReac Type Severity Reaction Status Date / Time No Known Allergies Allergy Verified 08/17/18 08:53 Physical Exam Vitals: Vital Signs Temp Pulse Resp BP Pulse Ox 08/17/18 16:55 82 16 120/60 97 08/17/18 15:58 77 16 121/58 96 08/17/18 13:00 72 98 H 144/64 95 08/17/18 12:10 83 18 115/63 100 08/17/18 09:23 126 H 18 111/56 95 08/17/18 08:50 18 08/17/18 08:27 97.8 F 118 H 18 120/69 98 Intake and Output 08/17/18 08/17/18 08/17/18 06:59 14:59 22:59 Other: Weight 59.874 kg PHYSICAL EXAMINATION: GENERAL: The patient is alert and oriented x3, not in any acute distress. Well developed, well nourished. HEENT: Pupils are round and equally reacting to light. EOMI. No scleral icterus. No conjunctival pallor. Normocephalic, atraumatic. No pharyngeal erythema. No thyromegaly. CARDIOVASCULAR: S1 and S2 present. No murmurs, rubs, or gallops. Patient may have JVD PULMONARY: Chest is clear to auscultation, no wheezing or crackles. ABDOMEN: Soft, nontender, nondistended, normoactive bowel sounds. No palpable organomegaly. MUSCULOSKELETAL: No joint swelling or deformity. EXTREMITIES: No cyanosis, clubbing, or pedal edema. NEUROLOGICAL: Gross neurological examination did not reveal any focal deficits. SKIN: No rashes. Results CBC & Chem 7: 08/17/18 08:40 08/17/18 08:40 Labs: Abnormal Lab Results - Last 24 Hours (Table) 08/17/18 08/17/18 08/17/18 Range/Units 08:40 08:40 10:30 D-Dimer 1.19 H (<0.60) mg/L FEU Sodium 134 L (137-145) mmol/L Carbon Dioxide 21 L (22-30) mmol/L Glucose 125 H (74-99) mg/dL Urine Ketones 1+ H (Negative) Ur Leukocyte Esterase Large H (Negative) Urine Mucus Rare H (None) /hpf Thrombosis Risk Factor Assmnt - Choose All That Apply Any of the Below Risk Factors Present?: Yes Each Factor Represents 1 point: Obesity (BMI >25) Other Risk Factors: Yes Each Risk Factor Represents 3 Points: Age 75 years or older Other congenital or acquired thrombophilia - If yes, enter type in comment: No Thrombosis Risk Factor Assessment Total Risk Factor Score: 4 Thrombosis Risk Factor Assessment Level: Moderate Risk Assessment and Plan Plan: -New-onset atrial fibrillation: Patient is presently rate controlled and rhythm controlled patient will be switched to metoprolol Cardizem will be discontinued will continue with heparin patient will need oral anticoagulation. Patient probably has proximal A. fib -Shortness of breath secondary to pulmonary edema probably acute pulmonary edema , atrial fibrillation -Seizure disorder -Hypothyroidism will obtain a TSH patient also has an enlarged thyroid on the CAT scan. -Gastroesophageal reflux disease -History of DVT in the past -Seizure disorder no recent seizures. -Hypertension For above-mentioned chronic medical problems patient will be resumed on appropriate home medications
--- NOTE | 2018-08-17 20:25 | ECHOF ---
Referral Reason:chf MEASUREMENTS -------- HEIGHT: 147.3 cm WEIGHT: 59.9 kg BP: 111/56 RVIDd: 2.0 cm (< 3.3) IVSd: 1.4 cm (0.6 - 1.1) LVIDd: 2.9 cm (3.9 - 5.3) LVPWd: 1.5 cm (0.6 - 1.1) IVSs: 2.0 cm LVIDs: 2.0 cm LVPWs: 1.5 cm LA Diam: 4.1 cm (2.7 - 3.8) LAESV Index (A-L): 38.98 ml/m Ao Diam: 2.9 cm (2.0 - 3.7) AV Cusp: 1.9 cm (1.5 - 2.6) MV EXCURSION: 12.148 mm (> 18.000) MV EF SLOPE: 119 mm/s (70 - 150) EPSS: 0.2 cm AV maxP.24 mmHg AV meanP.78 mmHg RAP: 5.00 mmHg RVSP: 33.48 mmHg FINDINGS -------- Atrial fibrillation. This was a technically adequate study. The left ventricular size is normal. There is moderate concentric left ventricular hypertrophy. O verall left ventricular systolic function is normal with, an EF between 60 - 65 %. The right ventricle is normal in size. LA is midly dilated 29-33ml/m2. The right atrium is normal in size. There is mild aortic valve sclerosis. There is mild aortic stenosis present. Peak/mean gradient a cross the Aortic Valve is 16.24mmHg / 8.78mmHg. The mitral valve leaflets are mildly thickened. Mild mitral annular calcification present. Mild m itral regurgitation is present. The peak and mean MV gradients are 14.32mmHg 6.46mmHg as measured by doppler. Mild tricuspid regurgitation present. Right ventricular systolic pressure is normal at < 35 mmHg. The pulmonic valve was not well visualized. The aortic root size is normal. Normal inferior vena cava with normal inspiratory collapse consistent with estimated right atrial pre ssure of 5 mmHg. There is no pericardial effusion. CONCLUSIONS -------- 1. Atrial fibrillation. 2. This was a technically adequate study. 3. The left ventricular size is normal. 4. There is moderate concentric left ventricular hypertrophy. 5. The right ventricle is normal in size. 6. LA is midly dilated 29-33ml/m2. 7. The right atrium is normal in size. 8. There is mild aortic valve sclerosis. 9. There is mild aortic stenosis present. 10. Peak/mean gradient across the Aortic Valve is 16.24mmHg / 8.78mmHg. 11. The mitral valve leaflets are mildly thickened. 12. Mild mitral annular calcification present. 13. Mild mitral regurgitation is present. 14. The peak and mean MV gradients are 14.32mmHg 6.46mmHg as measured by doppler. 15. Mild tricuspid regurgitation present. 16. Right ventricular systolic pressure is normal at < 35 mmHg. 17. The pulmonic valve was not well visualized. 18. The aortic root size is normal. 19. Normal inferior vena cava with normal inspiratory collapse consistent with estimated right atrial pressure of 5 mmHg. 20. There is no pericardial effusion. HOSPITAL [employer] SERVICE WORKER: Jody Barnett RDCS
[2018-08-17] MEDS: METOPROLOL TARTRATE 25 MG TAB PO SCH (21:21)
[2018-08-17] MEDS: OXcarbazepine 150 MG TAB PO SCH (21:21)
[2018-08-17] MEDS: ATORVASTATIN 10 MG TAB PO SCH (21:21)
[2018-08-17 22:23] LABS: T4, Free (Free Thyroxine) 1.03 ng/dL (0.78-2.19)
[2018-08-18 03:02] LABS: Basophils % (A) 0 %; Eosinophils # (A) 0.2 k/uL (0-0.7); Eosinophils % (A) 1 %; HCT 39.6 % (34.0-46.0); HGB 13.1 gm/dL (11.4-16.0); Lymphocytes # (A) 0.7 k/uL (1.0-4.8); Lymphocytes % (A) 6 %; MCH 30.2 pg (25.0-35.0); MCHC 33.1 g/dL (31.0-37.0); MCV 91.2 fL (80.0-100.0); Mean Platelet Volume 7.1; Monocytes # (A) 0.4 k/uL (0-1.0); Monocytes % (A) 4 %; Neutrophils # (A) 10.7 k/uL (1.3-7.7); Neutrophils % (A) 89 %; Platelet Count 231 k/uL (150-450); RBC 4.34 m/uL (3.80-5.40); RDW 13.2 % (11.5-15.5); WBC 12.1 k/uL (3.8-10.6)
[2018-08-18 03:31] LABS: Anion Gap 10 mmol/L; Blood Urea Nitrogen 18 mg/dL (7-17); Carbon Dioxide 20 mmol/L (22-30); Chloride 107 mmol/L (98-107); Glucose 142 mg/dL (74-99); Potassium 4.2 mmol/L (3.5-5.1); Sodium 137 mmol/L (137-145)
[2018-08-18] MEDS: LEVOTHYROXINE 25 MCG TAB PO SCH (06:44)
[2018-08-18] MEDS: FAMOTIDINE 20 MG TAB PO SCH (08:34)
[2018-08-18] MEDS: OXcarbazepine 150 MG TAB PO SCH ×2 (08:34→21:01)
[2018-08-18] MEDS: METOPROLOL TARTRATE 25 MG TAB PO SCH ×2 (08:34→21:00)
--- NOTE | 2018-08-18 10:38 | CONS ---
CONSULTATION CHIEF COMPLAINT: Palpitations. Cony is a 77-year-old lady who was admitted to hospital with new onset atrial fibrillation. She comes in complaining of palpitations that were mild to moderate intensity, came on at rest without clear-cut relieving or exacerbating factors. Her EKG shows atrial fibrillation with nonspecific ST-T wave changes. She subsequently converted to sinus rhythm and remained in sinus rhythm. An echocardiogram showed normal LV systolic function. Troponin is negative. BNP is normal. TSH is 0.14, but the free T4 is normal at 1. Hemoglobin is 13.1. Potassium is 4.2 and creatinine is 0.56. The patient has paroxysmal atrial fibrillation, currently on heparin. I am going to convert the patient to Eliquis and discharge her home and consider an outpatient stress test on her. PAST MEDICAL HISTORY: Past medical history is significant for hypertension, dyslipidemia and hypothyroidism. CURRENT MEDICATIONS: Current medications include Norvasc 5 q. daily, Zocor 10 q. daily, Synthroid, vitamin B, D, Biotin. PHYSICAL EXAMINATION: On exam, comfortable at rest. Vital signs are stable. There is no jugular venous distention. Carotid upstroke is normal. There is no bruit. Chest exam reveals good air entry bilaterally. Heart exam reveals first and second heart sounds, irregular rhythm and a murmur at the left lower sternal border. Abdomen is soft. Examination of the extremities did not reveal any edema. Peripheral pulses are palpable. LABS: Labs showed the potassium is 4.2, creatinine is 0.59, hemoglobin is normal at 13.1, and platelet count is 230. EKG initially showed atrial fibrillation and subsequently converted back to sinus rhythm. ASSESSMENT: Paroxysmal atrial fibrillation. PLAN: Patient is currently in sinus rhythm. I will convert her to an oral anticoagulant and discharge her home today. MMODL / IJN: [id number] /
[2018-08-18] MEDS ORDERED: WARFARIN 5 MG TAB PO ONE (18:00)
[2018-08-18] MEDS: ATORVASTATIN 10 MG TAB PO SCH (21:01)
[2018-08-18] MEDS: HEPARIN SOD,PORK IN 0.45% NACL 25,000 UNIT in 0.45% NACL 1 500ML.BAG IV SCH (21:01)
[2018-08-19] MEDS: LEVOTHYROXINE 25 MCG TAB PO SCH (06:38)
[2018-08-19 07:16] LABS: Basophils % (A) 0 %; Eosinophils # (A) 0.2 k/uL (0-0.7); Eosinophils % (A) 2 %; HCT 38.1 % (34.0-46.0); HGB 12.8 gm/dL (11.4-16.0); Lymphocytes # (A) 2.8 k/uL (1.0-4.8); Lymphocytes % (A) 23 %; MCH 30.9 pg (25.0-35.0); MCHC 33.6 g/dL (31.0-37.0); Mean Platelet Volume 7.4; Monocytes # (A) 0.7 k/uL (0-1.0); Monocytes % (A) 6 %; Neutrophils # (A) 8.1 k/uL (1.3-7.7); Neutrophils % (A) 68 %; Platelet Count 225 k/uL (150-450); RBC 4.14 m/uL (3.80-5.40); RDW 13.4 % (11.5-15.5); WBC 11.9 k/uL (3.8-10.6)
[2018-08-19 07:24] LABS: INR 1.1 (<1.2); Prothrombin Time 10.4 sec (9.0-12.0)
[2018-08-19] MEDS: FAMOTIDINE 20 MG TAB PO SCH (08:20)
[2018-08-19] MEDS: OXcarbazepine 150 MG TAB PO SCH ×2 (08:20→21:39)
[2018-08-19] MEDS: METOPROLOL TARTRATE 25 MG TAB PO SCH (08:20)
--- NOTE | 2018-08-19 10:29 | P.PN ---
Subjective Progress Note Date: 08/18/18 Progress note being dictated for Dr. Bradford Interval history:72-year-old pleasant female came in with complains of shortness of breath, diaphoresis and when questioned palpitations with mild S pain denied any orthopnea proximal nocturnal dyspnea patient is symptoms started today. Patient is found to be in atrial fibrillation with rapid ventricular rate patient was started on Cardizem presently heart rate has come down patient is sinus rhythm patient was started on metoprolol. Patient denied any fever chills nausea vomiting dysuria. Patient is also found to have mildly elevated d-dimer because of which her CT angios the chest was obtained. Chest x -ray did show pulmonary edema which improved with 20 mg of IV Lasix, CT angios showed improved pulmonary edema. I'll order one more 20 mg of IV Lasix. BNP is only 200. Echocardiogram will be obtained patient had a previous echocardiogram about any ago which showed normal ejection fraction. Patient is on IV heparin anticoagulation will need anticoagulation upon discharge. Cardiology was consulted troponin is negative 08/18/2018 evaluated by cardiology, verifying anticoagulation with Eliquis OP coverage .maintained on heparin drip. Telemetry reporting currently sinus rhythm. Denies chest pain, palpitations or increasing shortness of breath. Afebrile, WBC 12.1. Objective - Vital Signs Vital signs: Vital Signs Temp 98.4 F 08/18/18 20:00 Pulse 55 L 08/18/18 20:00 Resp 18 08/18/18 20:00 BP 128/66 08/18/18 20:00 Pulse Ox 93 L 08/18/18 20:00 Intake & Output 08/18/18 08/18/18 08/19/18 06:59 18:59 06:59 Intake Total 499.716 4849 368.477 Balance 349.108 7595 368.477 Weight 59.6 kg Intake: IV 80 848 80 0.9 80 80 80 Heparin Sod,Pork in 0.45% 768 NaCl 25,000 unit In 0.45 % NaCl 1 500ml.bag @ 12 UNITS/KG/HR 14.36 mls/hr IV .Q24H [facility] Rx#: [id number] Intake, IV Titration 108.897 288.477 Amount Heparin Sod,Pork in 0.45% 108.897 288.477 NaCl 25,000 unit In 0.45 % NaCl 1 500ml.bag @ 12 UNITS/KG/HR 14.36 mls/hr IV .Q24H [facility] Rx#: [id number] Oral 600 Other: Voiding Method Toilet Toilet # Voids 4 2 - Exam GENERAL: The patient is alert and oriented x3, not in any acute distress. Well developed, well nourished. HEENT: Pupils are round and equally reacting to light. EOMI. No scleral icterus. No conjunctival pallor. Normocephalic, atraumatic. No pharyngeal erythema. No thyromegaly. CARDIOVASCULAR: S1 and S2 present. Systolic murmur PULMONARY: Chest is clear to auscultation, no wheezing or crackles. ABDOMEN: Soft, nontender, nondistended, normoactive bowel sounds. No palpable organomegaly. MUSCULOSKELETAL: No joint swelling or deformity. EXTREMITIES: No cyanosis, clubbing, or pedal edema. NEUROLOGICAL: Gross neurological examination did not reveal any focal deficits. SKIN: No rashes. - Labs CBC & Chem 7: 08/19/18 06:21 08/18/18 02:46 Labs: Abnormal Lab Results - Last 24 Hours (Table) 08/18/18 08/18/18 08/18/18 Range/Units 02:46 02:46 02:46 WBC 12.1 H (3.8-10.6) k/uL Neutrophils # 10.7 H (1.3-7.7) k/uL Lymphocytes # 0.7 L (1.0-4.8) k/uL APTT 51.1 H (22.0-30.0) sec Carbon Dioxide 20 L (22-30) mmol/L BUN 18 H (7-17) mg/dL Glucose 142 H (74-99) mg/dL Microbiology - Last 24 Hours (Table) 08/17/18 08:40 Blood Culture - Preliminary Blood No Growth after 24 hours Assessment and Plan Assessment: -New-onset paroximal atrial fibrillation, currently sinus rhythm -Shortness of breath secondary to pulmonary edema probably acute pulmonary edema , atrial fibrillation, resolved -Seizure disorder -Hypothyroidism ,enlarged thyroid on the CAT scan. -Gastroesophageal reflux disease -History of DVT in the past -Seizure disorder no recent seizures. -Hypertension Plan: Continue on current medication regime ,monitoring and symptomatic treatment. Antiarrhythmics/anticoagulation as per cardiology. Discharge planning in progress. The impression and plan of care has been dictated as directed. : I performed a history and examination of this patient, discussed the same with the dictator. I agree with the dictator's note ,documented as a scribe. Any additional findings or plans will be noted.
--- NOTE | 2018-08-19 17:20 | P.PN ---
Subjective Progress Note Date: 08/19/18 This is a pleasant 77-year-old female patient who presented with complaints of palpitations. She was found to be in a new onset atrial fibrillation. She was started on heparin drip. Troponins were negative and BNP was normal. TSH was 0.14 but the T4 was normal. Patient does not have coverage for one of the new or anticoagulants. She was started on Coumadin yesterday 5 mg. INR today was 1.1. Overall, patient is feeling well. She is maintaining sinus rhythm. Echocardiogram done yesterday showed an ejection fraction of 60-65% with mild AF , mild MR and mild TR. She does not currently follow with a color depositing machine tender however her does see Dr. Cox and she would like to follow with him as well. Objective - Vital Signs Vital signs: Vital Signs Temp 97 F L 08/19/18 15:26 Pulse 53 L 08/19/18 15:26 Resp 20 08/19/18 15:26 BP 140/65 08/19/18 15:26 Pulse Ox 94 L 08/19/18 15:26 Intake & Output 08/18/18 08/19/18 08/19/18 18:59 06:59 18:59 Intake Total 1448 368.477 751.058 Balance 1448 368.477 751.058 Weight 61.6 kg Intake: IV 848 80 194.4 0.9 80 80 80 Heparin Sod,Pork in 0.45% 768 114.4 NaCl 25,000 unit In 0.45 % NaCl 1 500ml.bag @ 12 UNITS/KG/HR 14.36 mls/hr IV .Q24H [facility] Rx#: [id number] Intake, IV Titration 288.477 136.658 Amount Heparin Sod,Pork in 0.45% 288.477 136.658 NaCl 25,000 unit In 0.45 % NaCl 1 500ml.bag @ 12 UNITS/KG/HR 14.36 mls/hr IV .Q24H [facility] Rx#: [id number] Oral 600 420 Other: Voiding Method Toilet # Voids 3 - Exam PHYSICAL EXAMINATION: HEENT: Head is atraumatic, normocephalic. Pupils equal, round. Neck is supple. There is no elevated jugular venous pressure. HEART EXAMINATION: Heart sounds regular, S1 and S2 with a systolic murmur. CHEST EXAMINATION: Lungs are clear to auscultation and precussion. No chest wall tenderness is noted on palpation or with deep breathing. ABDOMEN: Soft, nontender. Bowel sounds are heard. No organomegaly noted. EXTREMITIES: 2+ peripheral pulses with no evidence of peripheral edema and no calf tenderness noted. NEUROLOGIC patient is awake, alert and oriented x3. . - Labs CBC & Chem 7: 08/19/18 06:21 08/18/18 02:46 Labs: Abnormal Lab Results - Last 24 Hours (Table) 08/19/18 08/19/18 08/19/18 Range/Units 06:21 06:21 15:50 WBC 11.9 H (3.8-10.6) k/uL Neutrophils # 8.1 H (1.3-7.7) k/uL APTT 44.0 H 56.4 H (22.0-30.0) sec Microbiology - Last 24 Hours (Table) 08/17/18 08:40 Blood Culture - Preliminary Blood No Growth after 48 hours Assessment and Plan Assessment: #1 paroxysmal atrial fibrillation, new onset #2 hypertension #3 hyperlipidemia #4 hypothyroidism Plan: From cardiology perspective, we will continue Coumadin. We'll we'll give the patient 5 mg tonight. Continue IV heparin at this time. She has been somewhat bradycardic we will decrease metoprolol dose. We will resume patient's home amlodipine 5 mg by mouth daily. Consider discharge tomorrow. Further recommendations to follow. ADMITTING OFFICER note has been reviewed, I agree with a documented findings and plan of care. Patient was seen and examined.
[2018-08-19] MEDS: amLODIPine 5 MG TAB PO SCH (17:30)
[2018-08-19] MEDS ORDERED: WARFARIN 5 MG TAB PO ONE (18:00)
[2018-08-19] MEDS: METOPROLOL TARTRATE 12.5 MG TAB PO SCH (21:39)
[2018-08-19] MEDS: ATORVASTATIN 10 MG TAB PO SCH (21:39)
--- NOTE | 2018-08-19 23:26 | P.PN ---
Subjective Progress Note Date: 08/19/18 Progress note being dictated for Dr. Bradford Interval history:72-year-old pleasant female came in with complains of shortness of breath, diaphoresis and when questioned palpitations with mild S pain denied any orthopnea proximal nocturnal dyspnea patient is symptoms started today. Patient is found to be in atrial fibrillation with rapid ventricular rate patient was started on Cardizem presently heart rate has come down patient is sinus rhythm patient was started on metoprolol. Patient denied any fever chills nausea vomiting dysuria. Patient is also found to have mildly elevated d-dimer because of which her CT angios the chest was obtained. Chest x -ray did show pulmonary edema which improved with 20 mg of IV Lasix, CT angios showed improved pulmonary edema. I'll order one more 20 mg of IV Lasix. BNP is only 200. Echocardiogram will be obtained patient had a previous echocardiogram about any ago which showed normal ejection fraction. Patient is on IV heparin anticoagulation will need anticoagulation upon discharge. Cardiology was consulted troponin is negative 08/18/2018 evaluated by cardiology, verifying anticoagulation with Eliquis OP coverage .maintained on heparin drip. Telemetry reporting currently sinus rhythm. Denies chest pain, palpitations or increasing shortness of breath. Afebrile, WBC 12.1. 08/19/2018 . Anticoagulated on Coumadin,Heparin gtt, INR 1.1. Bradycardic, beta kleber decreased. Denies chest pain, palpitations, shortness of breath.TSH 0.142,Free T4 1.03, levothyroxine discontinued. Telemetry currently sinus rhythm. WBC 11.9. Objective - Vital Signs Vital signs: Vital Signs Temp 97 F L 08/19/18 15:26 Pulse 53 L 08/19/18 15:26 Resp 20 08/19/18 15:26 BP 140/65 08/19/18 15:26 Pulse Ox 94 L 08/19/18 15:26 Intake & Output 08/19/18 08/19/18 08/20/18 06:59 18:59 06:59 Intake Total 368.477 751.058 Balance 368.547 751.058 Weight 61.6 kg Intake: IV 80 194.4 0.9 80 80 Heparin Sod,Pork in 0.45% 114.4 NaCl 25,000 unit In 0.45 % NaCl 1 500ml.bag @ 12 UNITS/KG/HR 14.36 mls/hr IV .Q24H [facility] Rx#: [id number] Intake, IV Titration 288.477 136.658 Amount Heparin Sod,Pork in 0.45% 288.477 136.658 NaCl 25,000 unit In 0.45 % NaCl 1 500ml.bag @ 12 UNITS/KG/HR 14.36 mls/hr IV .Q24H [facility] Rx#: [id number] Oral 420 Other: Voiding Method Toilet # Voids 3 - Exam GENERAL: The patient is alert and oriented x3, not in any acute distress. HEENT: Pupils are round and equally reacting to light. EOMI. No scleral icterus. No conjunctival pallor. Normocephalic, atraumatic. No pharyngeal erythema. No thyromegaly. CARDIOVASCULAR: S1 and S2 present. Regular, Systolic murmur PULMONARY: Chest is clear to auscultation, no wheezing or crackles. ABDOMEN: Soft, nontender, nondistended, normoactive bowel sounds. No palpable organomegaly. MUSCULOSKELETAL: No joint swelling or deformity. EXTREMITIES: No cyanosis, clubbing, or pedal edema. NEUROLOGICAL: Gross neurological examination did not reveal any focal deficits. SKIN: No rashes. - Labs CBC & Chem 7: 08/19/18 06:21 08/18/18 02:46 Labs: Abnormal Lab Results - Last 24 Hours (Table) 08/19/18 08/19/18 08/19/18 Range/Units 06:21 06:21 15:50 WBC 11.9 H (3.8-10.6) k/uL Neutrophils # 8.1 H (1.3-7.7) k/uL APTT 44.0 H 56.4 H (22.0-30.0) sec Microbiology - Last 24 Hours (Table) 08/17/18 08:40 Blood Culture - Preliminary Blood No Growth after 48 hours Assessment and Plan Assessment: -New-onset paroximal atrial fibrillation, currently sinus rhythm -Shortness of breath secondary to pulmonary edema probably acute pulmonary edema , atrial fibrillation, resolved -Seizure disorder -Hypothyroidism ,enlarged thyroid on the CAT scan. TSH 0.142,Free T4 1.03, levothyroxine discontinued. -Gastroesophageal reflux disease -History of DVT in the past -Seizure disorder no recent seizures. -Hypertension Plan: Continue on current medication regime ,monitoring and symptomatic treatment. levothyroxine discontinued. Anticoagulated on Coumadin, possibly changed from heparin drip to Lovenox as renal function within normal limits - defer to cardiology .Discharge planning in progress. The impression and plan of care has been dictated as directed. : I performed a history and examination of this patient, discussed the same with the dictator. I agree with the dictator's note ,documented as a scribe. Any additional findings or plans will be noted.
[2018-08-20 00:51] VITALS: RESP 16
[2018-08-20 00:56] VITALS: TEMP 98
[2018-08-20] MEDS: HEPARIN SOD,PORK IN 0.45% NACL 25,000 UNIT in 0.45% NACL 1 500ML.BAG IV SCH ×2 (00:56→09:09)
[2018-08-20 06:35] LABS: Basophils # (A) 0.1 k/uL (0-0.2); Basophils % (A) 1 %; Eosinophils # (A) 0.2 k/uL (0-0.7); Eosinophils % (A) 2 %; HCT 39.2 % (34.0-46.0); HGB 13.1 gm/dL (11.4-16.0); Lymphocytes # (A) 2.3 k/uL (1.0-4.8); Lymphocytes % (A) 26 %; MCH 30.3 pg (25.0-35.0); MCHC 33.4 g/dL (31.0-37.0); MCV 90.7 fL (80.0-100.0); Mean Platelet Volume 7.3; Monocytes # (A) 0.6 k/uL (0-1.0); Monocytes % (A) 7 %; Neutrophils # (A) 5.5 k/uL (1.3-7.7); Neutrophils % (A) 63 %; Platelet Count 210 k/uL (150-450); RBC 4.32 m/uL (3.80-5.40); RDW 13.3 % (11.5-15.5); WBC 8.7 k/uL (3.8-10.6)
[2018-08-20 07:05] LABS: INR 1.3 (<1.2); Partial Thromboplastin Time 62.6 sec (22.0-30.0)
[2018-08-20 08:03] VITALS: BP 143/79; PULSE 60
[2018-08-20] MEDS: METOPROLOL TARTRATE 12.5 MG TAB PO SCH (09:08)
[2018-08-20] MEDS: amLODIPine 5 MG TAB PO SCH (09:08)
[2018-08-20] MEDS: OXcarbazepine 150 MG TAB PO SCH (09:08)
[2018-08-20] MEDS: FAMOTIDINE 20 MG TAB PO SCH (09:08)
--- NOTE | 2018-08-20 09:44 | P.PN ---
Subjective Progress Note Date: 08/20/18 Principal diagnosis: Paroxysmal atrial fibrillation The patient is a pleasant 77-year-old female patient who was admitted to the hospital was heart racing and fluttering and was found to be in atrial fibrillation which was new to her. She was converted to normal sinus mechanism and she has been maintaining normal sinus mechanism. She is asymptomatic from the cardiovascular standpoint overview. She is on Coumadin for anticoagulation and INR today is 1.3. I did give the patient 7.5 mg of Coumadin today and will check INR tomorrow. I discussed with her the option of going home on Coumadin and Lovenox but she wanted think about it at this point. Objective - Vital Signs Vital signs: Vital Signs Temp 98.0 F 08/20/18 08:00 Pulse 60 08/20/18 08:00 Resp 16 08/20/18 08:00 BP 143/79 08/20/18 08:00 Pulse Ox 96 08/20/18 08:00 Intake & Output 08/19/18 08/20/18 08/20/18 18:59 06:59 18:59 Intake Total 751.058 595.673 Balance 751.058 595.673 Weight 59.6 kg Intake: IV 194.4 0.9 80 Heparin Sod,Pork in 0.45% 114.4 NaCl 25,000 unit In 0.45 % NaCl 1 500ml.bag @ 12 UNITS/KG/HR 14.36 mls/hr IV .Q24H [facility] Rx#: [id number] Intake, IV Titration 136.658 355.673 Amount Heparin Sod,Pork in 0.45% 136.658 355.673 NaCl 25,000 unit In 0.45 % NaCl 1 500ml.bag @ 12 UNITS/KG/HR 14.36 mls/hr IV .Q24H [facility] Rx#: [id number] Oral 420 240 Other: # Voids 1 - Constitutional General appearance: Present: no acute distress - Respiratory Respiratory: bilateral: CTA - Cardiovascular Rhythm: regular Heart sounds: normal: S1, S2 Abnormal Heart Sounds: Present: systolic murmur - Labs CBC & Chem 7: 08/20/18 06:00 08/18/18 02:46 Labs: Abnormal Lab Results - Last 24 Hours (Table) 08/19/18 08/20/18 Range/Units 15:50 06:38 INR 1.3 H (<1.2) APTT 56.4 H 62.6 H (22.0-30.0) sec Microbiology - Last 24 Hours (Table) 08/17/18 08:40 Blood Culture - Preliminary Blood No Growth after 48 hours Assessment and Plan Assessment: Assessment #1 paroxysmal atrial fibrillation Plan #1 the patient has been maintaining normal sinus mechanism #2 the echocardiogram showed normal LV function #3 continue the current medical regimen including beta kleber and oral anticoagulation
--- NOTE | 2018-08-20 16:35 | P.DS ---
Providers Date of admission: 08/17/18 13:30 Attending physician: Estrella Bradford Consults: 08/17/18 13:31 Consult Physician Routine Consulting Provider: Apolinar Cox Consult Reason/Comments: new onset a-fibrillation Do you want consulting provider notified?: Yes Primary care physician: [facility] Course: 72-year-old pleasant female came in with complains of shortness of breath, diaphoresis and when questioned palpitations with mild S pain denied any orthopnea proximal nocturnal dyspnea patient is symptoms started today. Patient is found to be in atrial fibrillation with rapid ventricular rate patient was started on Cardizem presently heart rate has come down patient is sinus rhythm patient was started on metoprolol. Patient denied any fever chills nausea vomiting dysuria. Patient is also found to have mildly elevated d -dimer because of which her CT angios the chest was obtained. Chest x-ray did show pulmonary edema which improved with 20 mg of IV Lasix, CT angios showed improved pulmonary edema. I'll order one more 20 mg of IV Lasix. BNP is only 200. Echocardiogram will be obtained patient had a previous echocardiogram about any ago which showed normal ejection fraction. Patient is on IV heparin anticoagulation will need anticoagulation upon discharge. Cardiology was consulted troponin is negative 08/18/2018 evaluated by cardiology, verifying anticoagulation with Eliquis OP coverage .maintained on heparin drip. Telemetry reporting currently sinus rhythm. Denies chest pain, palpitations or increasing shortness of breath. Afebrile, WBC 12.1. 08/19/2018 . Anticoagulated on Coumadin,Heparin gtt, INR 1.1. Bradycardic, beta kleber decreased. Denies chest pain, palpitations, shortness of breath.TSH 0.142,Free T4 1.03, levothyroxine discontinued. Telemetry currently sinus rhythm. WBC 11.9. 08/20/2018 Patient is clinically doing well is in sinus rhythm declined to take subcutaneous Lovenox to explain her is a small risk of having a stroke and neck 3 days and patient will be discharged on Coumadin 3 mg with the INR checked in 3 days GENERAL: The patient is alert and oriented x3, not in any acute distress. HEENT: Pupils are round and equally reacting to light. EOMI. No scleral icterus. No conjunctival pallor. Normocephalic, atraumatic. No pharyngeal erythema. No thyromegaly. CARDIOVASCULAR: S1 and S2 present. Regular, Systolic murmur PULMONARY: Chest is clear to auscultation, no wheezing or crackles. ABDOMEN: Soft, nontender, nondistended, normoactive bowel sounds. No palpable organomegaly. MUSCULOSKELETAL: No joint swelling or deformity. EXTREMITIES: No cyanosis, clubbing, or pedal edema. NEUROLOGICAL: Gross neurological examination did not reveal any focal deficits. SKIN: No rashes. Assessment and Plan Assessment: -New-onset paroximal atrial fibrillation, currently sinus rhythm -Shortness of breath secondary to pulmonary edema probably acute pulmonary edema , atrial fibrillation, resolved -Seizure disorder -Hypothyroidism ,enlarged thyroid on the CAT scan. TSH 0.142,Free T4 1.03, levothyroxine discontinued. Follow-up ultrasound of the thyroid as an outpatient -Gastroesophageal reflux disease -History of DVT in the past -Seizure disorder no recent seizures. -Hypertension Patient Condition at Discharge: Stable Plan - Discharge Summary Discharge Rx Participant: No New Discharge Prescriptions: New Metoprolol Tartrate [Lopressor] 12.5 mg PO BID #60 tab Warfarin [Coumadin] 3 mg PO DAILY #30 tab Continue OXcarbazepine [Trileptal] 150 mg PO BID Simvastatin [Zocor] 10 mg PO HS Cholecalciferol [Vitamin D3] 5,000 unit PO DAILY Alendronate Sodium [Fosamax] 70 mg PO WE Calcium Carb/Vitamin D3/Vit K1 [Citracal Soft Chew] 1 tab PO DAILY Vits A,C,E/Lutein/Minerals [Ocuvite with Lutein Tablet] 1 tab PO DAILY Cyanocobalamin [Vitamin B-12] 500 mcg PO DAILY Benazepril HCl 20 mg PO DAILY Biotin 10,000 mcg PO DAILY Famotidine [Pepcid] 20 mg PO DAILY Discontinued Levothyroxine Sodium [Synthroid] 25 mcg PO DAILY amLODIPine [Norvasc] 5 mg PO DAILY Discharge Medication List Alendronate Sodium [Fosamax] 70 mg PO WE 07/19/17 [History] Calcium Carb/Vitamin D3/Vit K1 [Citracal Soft Chew] 1 tab PO DAILY 07/19/17 [ History] Cholecalciferol [Vitamin D3] 5,000 unit PO DAILY 07/19/17 [History] OXcarbazepine [Trileptal] 150 mg PO BID 07/19/17 [History] Simvastatin [Zocor] 10 mg PO HS 07/19/17 [History] Benazepril HCl 20 mg PO DAILY 08/14/17 [History] Biotin 10,000 mcg PO DAILY 08/14/17 [History] Cyanocobalamin [Vitamin B-12] 500 mcg PO DAILY 08/14/17 [History] Vits A,C,E/Lutein/Minerals [Ocuvite with Lutein Tablet] 1 tab PO DAILY 08/14/17 [History] Famotidine [Pepcid] 20 mg PO DAILY 12/03/17 [History] Metoprolol Tartrate [Lopressor] 12.5 mg PO BID #60 tab 08/20/18 [Rx] Warfarin [Coumadin] 3 mg PO DAILY #30 tab 08/20/18 [Rx] Follow up Appointment(s)/Referral(s): Evangelista Osuna DO [Primary Care Provider] - 09/01/18 3:00 pm Olivier Lindsey MD [STAFF PHYSICIAN] - 09/02/18 9:00 am Patient Instructions/Handouts: A-fib (Atrial Fibrillation) (ED), Safe Use of Anticoagulants (ED) Activity/Diet/Wound Care/Special Instructions: Patient prefers to be with Dr. Cox- please call and request to be changed under Dr. Cox on Wednesday. INR in 3 days Discharge Disposition: HOME SELF-CARE
[2018-08-20] MEDS ORDERED: WARFARIN 7.5 MG TAB PO ONE (18:00)
== END 2018-08-20 13:23 | disposition home or self-care (01) | DRG 308 ==
LOC: EC 08:14 → 6SEL 13:30
PROVIDERS: ADMIT Internal Medicine; ATTEND Internal Medicine
DX: I48.0 Paroxysmal atrial fibrillation (principal); J81.0 Acute pulmonary edema; I27.20 Pulmonary hypertension, unspecified; G40.909 Epilepsy, unspecified, not intractable, without status epilepticus; E03.9 Hypothyroidism, unspecified; K21.9 Gastro-esophageal reflux disease without esophagitis; I10 Essential (primary) hypertension; E78.5 Hyperlipidemia, unspecified; R00.1 Bradycardia, unspecified; E55.9 Vitamin D deficiency, unspecified; M81.0 Age-related osteoporosis without current pathological fracture; E04.9 Nontoxic goiter, unspecified; Z79.83 Long term (current) use of bisphosphonates; Z79.890 Hormone replacement therapy; Z79.899 Other long term (current) drug therapy; Z90.49 Acquired absence of other specified parts of digestive tract; Z86.718 Personal history of other venous thrombosis and embolism; Z86.010 Personal history of colon polyps; Z82.3 Family history of stroke; Z82.5 Family history of asthma and other chronic lower respiratory diseases; Z87.19 Personal history of other diseases of the digestive system
CPT/HCPCS: 36415; 71046; 71275; 80048; 80053; 81001; 82550; 82553; 83605; 83735; 83880; 84439; 84443; 84484; 85025; 85379; 85610; 85730; 87040; 93005; 93306; 96365; 96366; 96368; 96375; 96376; 99291

== ENCOUNTER 2019-04-22 15:51 | Emergency (ER) | payer MEDICARE, BC ==
[2019-04-22 15:56] VITALS: TEMP 98.8
--- NOTE | 2019-04-22 17:10 | ED ---
Recheck HPI - General Chief Complaint: Recheck/Abnormal Lab/Rx Stated Complaint: High blood pressure Time Seen by Provider: 04/22/19 16:34 Source: patient, RN notes reviewed, old records reviewed Mode of arrival: ambulatory Limitations: no limitations - History of Present Illness Initial Comments: This is a 78-year-old female the ER for evaluation of elevated blood pressure. Patient's been changing her blood pressure medication checking her blood pressure at home. Patient has been compliant with her medications and has had multiple medication increases. Patient denies any complaints of headache chest pain shortness or abdominal pain. Upon arrival to ER patient's blood pressure is normal she states she is feeling fine. States that she like to be discharged home. - Related Data Home Medications Medication Instructions Recorded Confirmed Alendronate Sodium [Fosamax] 70 mg PO WE 07/19/17 04/22/19 Calcium Carb/Vitamin D3/Vit K1 1 tab PO DAILY@1200 07/19/17 04/22/19 [Citracal Soft Chew] Cholecalciferol [Vitamin D3 (25 5,000 unit PO DAILY 07/19/17 04/22/19 Mcg = 1000 Iu)] OXcarbazepine [Trileptal] 150 mg PO BID 07/19/17 04/22/19 Simvastatin [Zocor] 10 mg PO HS 07/19/17 04/22/19 Benazepril HCl 20 mg PO DAILY 08/14/17 04/22/19 Cyanocobalamin [Vitamin B-12] 500 mcg PO DAILY 08/14/17 04/22/19 Vits A,C,E/Lutein/Minerals 1 tab PO DAILY@1200 08/14/17 04/22/19 [Ocuvite with Lutein Tablet] Biotin 5 mg PO HS 04/22/19 04/22/19 Metoprolol Tartrate [Lopressor] 12.5 mg PO DAILY 04/22/19 04/22/19 Metoprolol Tartrate [Lopressor] 25 mg PO HS 04/22/19 04/22/19 Warfarin [Coumadin] 3 mg PO SUTUTHSA 04/22/19 04/22/19 Warfarin [Coumadin] 4.5 mg PO MOWEFR 04/22/19 04/22/19 amLODIPine [Norvasc] 5 mg PO DAILY 04/22/19 04/22/19 Allergies Allergy/AdvReac Type Severity Reaction Status Date / Time No Known Allergies Allergy Verified 04/22/19 16:25 Review of Systems ROS Statement: Those systems with pertinent positive or pertinent negative responses have been documented in the HPI. ROS Other: All systems not noted in ROS Statement are negative. Past Medical History Past Medical History: Deep Vein Thrombosis (DVT), GERD/Reflux, Hyperlipidemia, Hypertension, Seizure Disorder, Thyroid Disorder Additional Past Medical History / Comment(s): Irregular heart beat, DVT thinks L leg, last seizure 30-40 yrs ago, hypothyroid, goiter, bronchitis, sinus headaches, diverticulosis, benign polyps, hemorrhoids, vitamin D deficiency, osteoporosis, vertigo. History of Any Multi-Drug Resistant Organisms: None Reported Past Surgical History: Breast Surgery, Cholecystectomy, Tonsillectomy Additional Past Surgical History / Comment(s): Colonoscopies with polypectomies (benign), bilateral breast reductions, Past Anesthesia/Blood Transfusion Reactions: No Reported Reaction Past Psychological History: No Psychological Hx Reported Smoking Status: Never smoker Past Alcohol Use History: None Reported Past Drug Use History: None Reported - Past Family History Mother Family Medical History: CVA/TIA Additional Family Medical History / Comment(s): Mother had TIAs and at the age of 100yrs from a CVA Father Family Medical History: COPD Additional Family Medical History / Comment(s): Father had heart problems. He from emphysema at the age of 70yrs. General Exam Limitations: no limitations General appearance: alert, in no apparent distress Head exam: Present: atraumatic, normocephalic, normal inspection Eye exam: Present: normal appearance, PERRL, EOMI. Absent: scleral icterus, conjunctival injection, periorbital swelling ENT exam: Present: normal exam, mucous membranes moist Neck exam: Present: normal inspection. Absent: tenderness, meningismus, lymphadenopathy Respiratory exam: Present: normal lung sounds bilaterally. Absent: respiratory distress, wheezes, rales, rhonchi, stridor Cardiovascular Exam: Present: regular rate, normal rhythm, normal heart sounds. Absent: systolic murmur, diastolic murmur, rubs, gallop, clicks GI/Abdominal exam: Present: soft, normal bowel sounds. Absent: distended, tenderness, guarding, rebound, rigid Extremities exam: Present: normal inspection, full ROM, normal capillary refill. Absent: tenderness, pedal edema, joint swelling, calf tenderness Back exam: Present: normal inspection Neurological exam: Present: alert, oriented X3, CN II-XII intact Psychiatric exam: Present: normal affect, normal mood Skin exam: Present: warm, dry, intact, normal color. Absent: rash Course Vital Signs 04/22/19 04/22/19 15:54 17:47 Temperature 98.8 F Pulse Rate 80 74 Respiratory 18 16 Rate Blood Pressure 193/91 149/59 O2 Sat by Pulse 99 95 Oximetry Medical Decision Making - Medical Decision Making 78 female the ER for evaluation of elevated blood pressure. Asymptomatic. Feeling normal with normal blood pressure upon arrival. A she can be discharged home - EKG Data -: EKG Interpreted by Me (EKG shows sinus rhythm rate of 60, MN 140, QRS 70, QTc 435) Disposition Clinical Impression: Hypertension Disposition: HOME SELF-CARE Condition: Good Instructions (If sedation given, give patient instructions): Hypertension (ED) Is patient prescribed a controlled substance at d/c from ED?: No Referrals: Evangelista sOuna DO [Primary Care Provider] - 1-2 days
[2019-04-22 17:48] VITALS: BP 149/59; PULSE 74; RESP 16
== END 2019-04-22 17:48 | disposition home or self-care (01) ==
LOC: EC 15:51
DX: I10 Essential (primary) hypertension (principal); E78.5 Hyperlipidemia, unspecified; G40.909 Epilepsy, unspecified, not intractable, without status epilepticus; K21.9 Gastro-esophageal reflux disease without esophagitis; M81.0 Age-related osteoporosis without current pathological fracture; E55.9 Vitamin D deficiency, unspecified; Z79.01 Long term (current) use of anticoagulants; Z79.899 Other long term (current) drug therapy; Z86.718 Personal history of other venous thrombosis and embolism
CPT/HCPCS: 93005; 99284

== ENCOUNTER 2021-01-09 10:41 | Emergency (ER) | payer MEDICARE, BC ==
[2021-01-09 10:50] VITALS: TEMP 98.4
[2021-01-09] MEDS ORDERED: SODIUM CHLORIDE 0.9% 1,000 ML IV STA (11:14)
[2021-01-09] MEDS ORDERED: SODIUM CHLORIDE 0.9% 500 ML 500 ML IV STA (11:14)
--- NOTE | 2021-01-09 11:22 | ED ---
Dizziness HPI - General Chief Complaint: Dizziness Stated Complaint: High BP/Weakness/Headache Time Seen by Provider: 01/09/21 10:54 Source: patient, family, RN notes reviewed Mode of arrival: wheelchair Limitations: no limitations - History of Present Illness Initial Comments: This is a 72-year-old female with a history of hypertension among other medical issues who states she's been having dizziness lightheadedness and her high blood pressure. She also complains of a frontal headache. She has had some falls 2 weeks ago but nothing recent. The pain is frontal and dull in nature. No fevers chills nausea vomiting sweats. She is on a pressure medication but she states they're not working. No chest pain no cough no other modifying factors or complaints at this time no focal weakness she does state that she has at times have lower extremity weakness MD Complaint: dizziness, lightheadedness, other - Related Data Home Medications Medication Instructions Recorded Confirmed Alendronate Sodium [Fosamax] 70 mg PO WE 07/19/17 01/09/21 Calcium Carb/Vitamin D3/Vit K1 1 tab PO DAILY@1200 07/19/17 01/09/21 [Citracal-D3 500 mg Soft Chew] OXcarbazepine [Trileptal] 150 mg PO BID 07/19/17 01/09/21 Simvastatin [Zocor] 10 mg PO HS 07/19/17 01/09/21 Cyanocobalamin [Vitamin B-12] 500 mcg PO DAILY 08/14/17 01/09/21 Vits A,C,E/Lutein/Minerals 1 tab PO DAILY@1200 08/14/17 01/09/21 [Ocuvite with Lutein Tablet] Biotin 5 mg PO DAILY 04/22/19 01/09/21 Metoprolol Tartrate [Lopressor] 25 mg PO BID 04/22/19 01/09/21 Warfarin [Coumadin] 3 mg PO SUTUWETHSA@89904/22/19 01/09/21 Warfarin [Coumadin] 4.5 mg PO MOFR@89904/22/19 01/09/21 amLODIPine [Norvasc] 5 mg PO DAILY 04/22/19 01/09/21 Benazepril HCl 40 mg PO DAILY 01/09/21 01/09/21 Dicyclomine [Bentyl] 10 mg PO QID PRN 01/09/21 01/09/21 L.acidoph,Paracasei, B.lactis 1 cap PO DAILY 01/09/21 01/09/21 [Probiotic] Vitamin D3(Unknown Dose) 1 cap PO DAILY 01/09/21 01/09/21 Wheat Dextrin [Benefiber] 1 packet PO DAILY 01/09/21 01/09/21 Allergies Allergy/AdvReac Type Severity Reaction Status Date / Time No Known Allergies Allergy Verified 01/09/21 13:09 Review of Systems ROS Statement: Those systems with pertinent positive or pertinent negative responses have been documented in the HPI. ROS Other: All systems not noted in ROS Statement are negative. Past Medical History Past Medical History: Deep Vein Thrombosis (DVT), GERD/Reflux, Hyperlipidemia, Hypertension, Seizure Disorder, Thyroid Disorder Additional Past Medical History / Comment(s): Irregular heart beat, DVT thinks L leg, last seizure 30-40 yrs ago, hypothyroid, goiter, bronchitis, sinus headaches, diverticulosis, benign polyps, hemorrhoids, vitamin D deficiency, osteoporosis, vertigo. History of Any Multi-Drug Resistant Organisms: None Reported Past Surgical History: Breast Surgery, Cholecystectomy, Tonsillectomy Additional Past Surgical History / Comment(s): Colonoscopies with polypectomies (benign), bilateral breast reductions, Past Anesthesia/Blood Transfusion Reactions: No Reported Reaction Past Psychological History: No Psychological Hx Reported Smoking Status: Never smoker Past Alcohol Use History: None Reported Past Drug Use History: None Reported - Past Family History Mother Family Medical History: CVA/TIA Additional Family Medical History / Comment(s): Mother had TIAs and at the age of 100yrs from a CVA Father Family Medical History: COPD Additional Family Medical History / Comment(s): Father had heart problems. He from emphysema at the age of 70yrs. General Exam - General Exam Comments Initial Comments: t this is a well-developed well-nourished awake alert oriented 3 female Limitations: no limitations General appearance: alert, in no apparent distress Head exam: Present: atraumatic, normocephalic, normal inspection Eye exam: Present: normal appearance, PERRL, EOMI. Absent: scleral icterus, conjunctival injection, periorbital swelling ENT exam: Present: mucous membranes dry Neck exam: Present: normal inspection. Absent: tenderness, meningismus, lymphadenopathy Respiratory exam: Present: normal lung sounds bilaterally. Absent: respiratory distress, wheezes, rales, rhonchi, stridor Cardiovascular Exam: Present: normal rhythm, bradycardia, normal heart sounds. Absent: systolic murmur, diastolic murmur, rubs, gallop, clicks GI/Abdominal exam: Present: soft, normal bowel sounds. Absent: distended, tenderness, guarding, rebound, rigid Extremities exam: Present: normal inspection, full ROM, normal capillary refill. Absent: tenderness, pedal edema, joint swelling, calf tenderness Back exam: Present: normal inspection Neurological exam: Present: alert, oriented X3, CN II-XII intact Psychiatric exam: Present: normal affect, normal mood Skin exam: Present: warm, dry, intact, normal color. Absent: rash Course Vital Signs 01/09/21 01/09/21 01/09/21 10:46 11:26 12:15 Temperature 98.4 F Pulse Rate 58 L 57 L Pulse Rate [ 55 L Sitting] Pulse Rate [ 60 Standing] Pulse Rate [ 53 L Supine Sanding Machine Buffer] Respiratory 16 16 Rate Blood Pressure 229/83 197/77 Blood Pressure 215/80 [Sitting] Blood Pressure 222/110 [Standing] Blood Pressure 197/77 [Supine] O2 Sat by Pulse 95 95 Oximetry 01/09/21 01/09/21 12:46 13:16 Temperature Pulse Rate 56 L 46 L Pulse Rate [ Sitting] Pulse Rate [ Standing] Pulse Rate [ Supine Sanding Machine Buffer] Respiratory 18 18 Rate Blood Pressure 198/74 207/75 Blood Pressure [Sitting] Blood Pressure [Standing] Blood Pressure [Supine] O2 Sat by Pulse 96 96 Oximetry Medical Decision Making - Medical Decision Making I did discuss the findings with the patient and family members as well as with Dr. Osuna. Patient will be discharged with instructions to take an additional 5 mg dose of amlodipine 50 systolic blood pressures greater than 175. She is a continue out the other medications include metoprolol and benzo pro which is now up to 40 mg per day. This will follow-up with Dr. Osuna in one week. He is asymptomatic this time. - Lab Data Result diagrams: 01/09/21 11:21 01/09/21 11:21 Lab Results 01/09/21 01/09/21 01/09/21 Range/Units 11:21 11:21 11:21 WBC 7.6 (3.8-10.6) k/uL RBC 4.33 (3.80-5.40) m/uL Hgb 13.2 (11.4-16.0) gm/dL Hct 39.2 (34.0-46.0) % MCV 90.6 (80.0-100.0) fL MCH 30.5 (25.0-35.0) pg MCHC 33.7 (31.0-37.0) g/dL RDW 13.6 (11.5-15.5) % Plt Count 206 (150-450) k/uL MPV 8.0 Neutrophils % 76 % Lymphocytes % 13 % Monocytes % 6 % Eosinophils % 4 % Basophils % 0 % Neutrophils # 5.7 (1.3-7.7) k/uL Lymphocytes # 1.0 (1.0-4.8) k/uL Monocytes # 0.5 (0-1.0) k/uL Eosinophils # 0.3 (0-0.7) k/uL Basophils # 0.0 (0-0.2) k/uL PT 21.4 H (9.0-12.0) sec INR 2.2 H (<1.2) Sodium (137-145) mmol/L Potassium (3.5-5.1) mmol/L Chloride (98-107) mmol/L Carbon Dioxide (22-30) mmol/L Anion Gap mmol/L BUN (7-17) mg/dL Creatinine (0.52-1.04) mg/dL Est GFR (CKD-EPI)AfAm (>60 ml/min/1.73 sqM) Est GFR (CKD-EPI)NonAf (>60 ml/min/1.73 sqM) Glucose (74-99) mg/dL Calcium (8.4-10.2) mg/dL Magnesium (1.6-2.3) mg/dL Total Bilirubin (0.2-1.3) mg/dL AST (14-36) U/L ALT (4-34) U/L Alkaline Phosphatase (38-126) U/L Troponin I (0.000-0.034) ng/mL Total Protein (6.3-8.2) g/dL Albumin (3.5-5.0) g/dL Urine Color Light Yellow Urine Appearance Clear (Clear) Urine pH 7.5 (5.0-8.0) Ur Specific [place] 1.006 (1.001-1.035) Urine Protein Negative (Negative) Urine Glucose (UA) Negative (Negative) Urine Ketones Negative (Negative) Urine Blood Negative (Negative) Urine Nitrite Negative (Negative) Urine Bilirubin Negative (Negative) Urine Urobilinogen <2.0 (<2.0) mg/dL Ur Leukocyte Esterase Negative (Negative) 01/09/21 01/09/21 Range/Units 11:21 11:21 WBC (3.8-10.6) k/uL RBC (3.80-5.40) m/uL Hgb (11.4-16.0) gm/dL Hct (34.0-46.0) % MCV (80.0-100.0) fL MCH (25.0-35.0) pg MCHC (31.0-37.0) g/dL RDW (11.5-15.5) % Plt Count (150-450) k/uL MPV Neutrophils % % Lymphocytes % % Monocytes % % Eosinophils % % Basophils % % Neutrophils # (1.3-7.7) k/uL Lymphocytes # (1.0-4.8) k/uL Monocytes # (0-1.0) k/uL Eosinophils # (0-0.7) k/uL Basophils # (0-0.2) k/uL PT (9.0-12.0) sec INR (<1.2) Sodium 132 L (137-145) mmol/L Potassium 4.3 (3.5-5.1) mmol/L Chloride 98 (98-107) mmol/L Carbon Dioxide 25 (22-30) mmol/L Anion Gap 9 mmol/L BUN 13 (7-17) mg/dL Creatinine 0.60 (0.52-1.04) mg/dL Est GFR (CKD-EPI)AfAm >90 (>60 ml/min/1.73 sqM) Est GFR (CKD-EPI)NonAf 88 (>60 ml/min/1.73 sqM) Glucose 108 H (74-99) mg/dL Calcium 9.3 (8.4-10.2) mg/dL Magnesium 2.0 (1.6-2.3) mg/dL Total Bilirubin 0.6 (0.2-1.3) mg/dL AST 28 (14-36) U/L ALT 16 (4-34) U/L Alkaline Phosphatase 47 (38-126) U/L Troponin I <0.012 (0.000-0.034) ng/mL Total Protein 6.9 (6.3-8.2) g/dL Albumin 4.4 (3.5-5.0) g/dL Urine Color Urine Appearance (Clear) Urine pH (5.0-8.0) Ur Specific [place] (1.001-1.035) Urine Protein (Negative) Urine Glucose (UA) (Negative) Urine Ketones (Negative) Urine Blood (Negative) Urine Nitrite (Negative) Urine Bilirubin (Negative) Urine Urobilinogen (<2.0) mg/dL Ur Leukocyte Esterase (Negative) - EKG Data -: EKG Interpreted by Me EKG shows normal: sinus rhythm EKG Comments: Sinus bradycardia rate of 48. Interval 174 QRS 90 QT since QTC 464/414 - Radiology Data Radiology results: report reviewed (G reviewed no acute findings.), image reviewed Disposition Clinical Impression: Accelerated hypertension, Dehydration Disposition: HOME SELF-CARE Condition: Good Instructions (If sedation given, give patient instructions): Dizziness (ED), Dehydration (ED), Hypertension (ED) Additional Instructions: Take an additional 5 mg dose of Norvasc if the systolic blood pressure is greater than 175. Keep her follow-up appointment with Dr. Osuna next week call for a time. Is patient prescribed a controlled substance at d/c from ED?: No Referrals: Evangelista Osuna DO [Primary Care Provider] - 1-2 days
[2021-01-09 11:42] LABS: Basophils % (A) 0 %; Eosinophils # (A) 0.3 k/uL (0-0.7); Eosinophils % (A) 4 %; HCT 39.2 % (34.0-46.0); HGB 13.2 gm/dL (11.4-16.0); Lymphocytes % (A) 13 %; MCH 30.5 pg (25.0-35.0); MCHC 33.7 g/dL (31.0-37.0); MCV 90.6 fL (80.0-100.0); Monocytes # (A) 0.5 k/uL (0-1.0); Monocytes % (A) 6 %; Neutrophils # (A) 5.7 k/uL (1.3-7.7); Neutrophils % (A) 76 %; Platelet Count 206 k/uL (150-450); RBC 4.33 m/uL (3.80-5.40); RDW 13.6 % (11.5-15.5); WBC 7.6 k/uL (3.8-10.6)
[2021-01-09 11:51] LABS: ALT 16 U/L (4-34); AST 28 U/L (14-36); African American GFR (CKD) >90 (>60 ml/min/1.73 sqM); Albumin 4.4 g/dL (3.5-5.0); Alkaline Phosphatase 47 U/L (38-126); Anion Gap 9 mmol/L; Blood Urea Nitrogen 13 mg/dL (7-17); Calcium 9.3 mg/dL (8.4-10.2); Carbon Dioxide 25 mmol/L (22-30); Chloride 98 mmol/L (98-107); Glucose 108 mg/dL (74-99); Non-African American GFR(CKD) 88 (>60 ml/min/1.73 sqM); Potassium 4.3 mmol/L (3.5-5.1); Sodium 132 mmol/L (137-145); Total Bilirubin 0.6 mg/dL (0.2-1.3); Total Protein 6.9 g/dL (6.3-8.2)
[2021-01-09 12:00] LABS: INR 2.2 (<1.2); Prothrombin Time 21.4 sec (9.0-12.0)
--- NOTE | 2021-01-09 12:00 | CT ---
EXAMINATION TYPE: CT brain wo con DATE OF EXAM: 01/09/2021 HISTORY: headache, dizziness CT DLP: 1099.4 mGycm. Automated Exposure Control for Dose Reduction was Utilized. TECHNIQUE: CT scan of the head is performed without contrast. COMPARISON: CT brain August 14, 2017. FINDINGS: There is no acute intracranial hemorrhage or midline shift identified. There is mild diff use ventricular and sulcal prominence consistent with diffuse age-related cerebral atrophy. More mode rate to severe diffuse cerebellar atrophy redemonstrated. There is mild low-attenuation in the periv entricular white matter consistent with chronic small vessel ischemic change. The globes are intact and the visualized sinuses are clear. IMPRESSION: No acute intracranial hemorrhage or midline shift. There is mild diffuse cerebral atrop hy and chronic small vessel ischemic change along with moderate to severe bilateral diffuse cerebella r atrophy are all redemonstrated. No significant change from prior.
[2021-01-09 12:04] LABS: Color,Urine Light Yellow
[2021-01-09 12:05] LABS: Appearance,Urine Clear (Clear); Bilirubin,Urine Negative (Negative); Blood,Urine Negative (Negative); Glucose,Urine (UA) Negative (Negative); Ketones,Urine Negative (Negative); PH, Urine 7.5 (5.0-8.0); Protein,Urine Negative (Negative); Specific Gravity,Urine 1.006 (1.001-1.035); Urobilinogen,Urine <2.0 mg/dL (<2.0)
[2021-01-09 12:06] LABS: Leukocyte Esterase,Urine Negative (Negative); Nitrite,Urine Negative (Negative)
[2021-01-09 12:47] VITALS: RESP 18
[2021-01-09] MEDS ORDERED: amLODIPine 5 MG TAB PO STA (13:28)
[2021-01-09 15:01] VITALS: BP 196/70; PULSE 55
== END 2021-01-09 14:56 | disposition home or self-care (01) ==
LOC: EC 10:41
DX: E86.0 Dehydration (principal); I10 Essential (primary) hypertension; E03.9 Hypothyroidism, unspecified; E78.5 Hyperlipidemia, unspecified; K21.9 Gastro-esophageal reflux disease without esophagitis; G40.909 Epilepsy, unspecified, not intractable, without status epilepticus; Z86.718 Personal history of other venous thrombosis and embolism; Z79.899 Other long term (current) drug therapy
CPT/HCPCS: 36415; 70450; 80053; 81003; 83735; 84484; 85025; 85610; 93005; 96360; 96361; 99284

== ENCOUNTER → 2021-03-14 | Outpatient (CLI) | payer MEDICARE, BC ==
--- NOTE | 2021-03-14 15:01 | XR ---
EXAMINATION TYPE: XR abdomen 2V DATE OF EXAM: 03/14/2021 COMPARISON: 01/07/2014 INDICATION: Abdominal pain, diverticulosis TECHNIQUE: Single view abdomen frontal projection upright and supine views FINDINGS: There is a normal bowel gas pattern. No free air is evident. No suspicious differential air-fluid lev els are present. Cholecystectomy clips are in the right upper quadrant. Costochondral cartilage calci fication is present. Psoas margins are normal. No organomegaly is present. IMPRESSION: 1. Unremarkable Abdomen
== END | disposition home or self-care (01) ==
LOC: RADXRMAIN 10:04
PROVIDERS: ATTEND Nurse Practitioner Family
DX: R10.9 Unspecified abdominal pain (principal)
CPT/HCPCS: 74019

== ENCOUNTER 2021-03-31 12:38 | Day surgery (SDC) | payer MEDICARE, BC ==
[2021-03-28 09:34] VITALS: BMI 25.2
[2021-03-31 13:24] VITALS: RESP 16; TEMP 97.3
[2021-03-31] MEDS ORDERED: LIDOCAINE 1% (10MG/ML) FOR IV START INTRADERMA ONE (13:33)
[2021-03-31] MEDS ORDERED: LACTATED RINGERS 1,000 ML IV ONE (13:33)
[2021-03-31] MEDS ORDERED: PROPOFOL 10 MG/ML 20 ML VIAL IV ONE (13:57)
[2021-03-31] MEDS ORDERED: LIDOCAINE 1% INJ 10MG/ML (20 ML MDV) ONE (13:57)
--- NOTE | 2021-03-31 14:05 | P.GSHP ---
History of Present Illness H&P Date: 03/31/21 Chief Complaint: GERD, dysphagia Is a 72-year-old female who presents today for EGD. She's had issues with GERD and dysphagia. She has a known intrathoracic stomach. And a large hiatal hernia Past Medical History Past Medical History: Atrial Fibrillation, GERD/Reflux, Hyperlipidemia, Hypertension, Seizure Disorder, Thyroid Disorder Additional Past Medical History / Comment(s): Irregular heart beat, , last seizure 30-40 yrs ago, hypothyroid, goiter, bronchitis, sinus headaches, diverticulosis, benign polyps, hemorrhoids, vitamin D deficiency, osteoporosis, vertigo. History of Any Multi-Drug Resistant Organisms: None Reported Past Surgical History: Breast Surgery, Cholecystectomy, Tonsillectomy Additional Past Surgical History / Comment(s): Colonoscopies with polypectomies (benign), bilateral breast reductions, Past Anesthesia/Blood Transfusion Reactions: No Reported Reaction Smoking Status: Never smoker - Past Family History Mother Family Medical History: CVA/TIA Additional Family Medical History / Comment(s): Mother had TIAs and at the age of 100yrs from a CVA Father Family Medical History: COPD Additional Family Medical History / Comment(s): Father had heart problems. He from emphysema at the age of 70yrs. Medications and Allergies Home Medications Medication Instructions Recorded Confirmed Type Alendronate Sodium [Fosamax] 70 mg PO WE 07/19/17 03/31/21 History OXcarbazepine [Trileptal] 150 mg PO BID 07/19/17 03/28/21 History Simvastatin [Zocor] 10 mg PO HS 07/19/17 03/31/21 History Biotin 5 mg PO DAILY 04/22/19 03/31/21 History Metoprolol Tartrate [Lopressor] 25 mg PO BID 04/22/19 03/28/21 History Warfarin [Coumadin] 3 mg PO DAILY 04/22/19 03/28/21 History Warfarin [Coumadin] 4.5 mg PO SUMOWEFR 04/22/19 03/28/21 History Benazepril HCl 40 mg PO BID 01/09/21 03/28/21 History Dicyclomine [Bentyl] 10 mg PO QID PRN 01/09/21 03/31/21 History L.acidoph,Paracasei, B.lactis 1 cap PO DAILY 01/09/21 03/31/21 History [Probiotic] Wheat Dextrin [Benefiber] 1 packet PO DAILY 01/09/21 03/31/21 History Cholecalciferol (Vitamin D3) 125 mcg PO DAILY 03/28/21 03/31/21 History [Vitamin D3 (5000 Iu)] Hydrochlorothiazide 12.5 mg PO DAILY 03/28/21 03/31/21 History [hydroCHLOROthiazide] Vitamin B Complex 1 each PO DAILY 03/28/21 03/31/21 History amLODIPine [Norvasc] 10 mg PO DAILY 03/28/21 03/28/21 History Allergies Allergy/AdvReac Type Severity Reaction Status Date / Time No Known Allergies Allergy Verified 03/28/21 09:14 Surgical - Exam Vital Signs Temp Pulse Resp BP Pulse Ox 97.3 F L 59 L 16 124/60 95 03/31/21 13:22 03/31/21 13:22 03/31/21 13:22 03/31/21 13:22 03/31/21 13:22 - General well developed, well nourished, no distress - Eyes PERRL - ENT normal pinna - Neck no masses - Respiratory normal expansion - Cardiovascular Rhythm: regular - Abdomen Abdomen: soft, non tender Assessment and Plan Assessment: GERD. We'll perform EGD.
--- NOTE | 2021-03-31 14:13 | P.OP ---
Date of Procedure: 03/31/21 Preoperative Diagnosis: GERD Postoperative Diagnosis: Antral gastritis Large moderate size hiatal hernia Esophagitis Procedure(s) Performed: EGD Anesthesia: MAC Surgeon: Ulices Wiley Pathology: other (Antrum, esophagus) Condition: stable Disposition: PACU Description of Procedure: The patient's placed on the endoscopy table in the lateral position. She received IV sedation. The gastroscope placed oropharynx passed in the esophagus and stomach. Scope was then placed through the pylorus. First and second portion of duodenum appeared normal. Scope was then brought back the antrum this was mildly inflamed. A biopsies performed. Scope was unretroflexed and remainder of the stomach appeared normal. The patient had a moderate size hiatal hernia. The GE junction was at 37 cm. The distal esophagus appeared inflamed and a biopsies performed. The proximal esophagus appeared normal. Scope was withdrawn for patient.
[2021-03-31 14:40] VITALS: BP 120/58; PULSE 58
== END 2021-03-31 14:53 | disposition home or self-care (01) ==
LOC: ORWHC2ENDO 12:38
PROVIDERS: ATTEND Surgery
DX: K29.50 Unspecified chronic gastritis without bleeding (principal); K21.00 Gastro-esophageal reflux disease with esophagitis, without bleeding; K44.9 Diaphragmatic hernia without obstruction or gangrene; I48.91 Unspecified atrial fibrillation; E78.5 Hyperlipidemia, unspecified; I10 Essential (primary) hypertension; G40.909 Epilepsy, unspecified, not intractable, without status epilepticus; E03.9 Hypothyroidism, unspecified; E04.9 Nontoxic goiter, unspecified; Z87.19 Personal history of other diseases of the digestive system; Z86.010 Personal history of colon polyps; K64.9 Unspecified hemorrhoids; E55.9 Vitamin D deficiency, unspecified; M81.0 Age-related osteoporosis without current pathological fracture; R42 Dizziness and giddiness; Z90.49 Acquired absence of other specified parts of digestive tract; Z90.89 Acquired absence of other organs; Z97.2 Presence of dental prosthetic device (complete) (partial); Z86.69 Personal history of other diseases of the nervous system and sense organs; Z98.890 Other specified postprocedural states; Z82.3 Family history of stroke; Z82.5 Family history of asthma and other chronic lower respiratory diseases; Z79.01 Long term (current) use of anticoagulants; Z79.83 Long term (current) use of bisphosphonates; Z79.899 Other long term (current) drug therapy
CPT/HCPCS: 88305; 43239; J2001; J2704

== ENCOUNTER 2021-04-22 08:35 | Day surgery (SDC) | payer MEDICARE, BC ==
[2021-04-18 15:12] VITALS: BMI 25.4
[~2021-04-22 08:35] MED LIST changes: +ACETAMINOPHEN TAB 500 MG TAB PO PRN; +DEXAMETHASONE SOD PHOSPHATE 4 MG/ML 1 ML VIAL IV ONE; +HEPARIN SODIUM,PORCINE/PF 5,000 UNIT/0.5 ML SYRINGE SQ PRN; +HYDROmorphone 0.5 MG/0.5 ML SYRINGE IVP PRN; +LIDOCAINE 1% (10MG/ML) FOR IV START INTRADERMA PRN; -MIDAZOLAM 2 MG/2 ML VIAL ONE; +ONDANSETRON 4 MG/2 ML VIAL IVP ONE; -PROPOFOL 10 MG/ML 20 ML VIAL IV ONE; -fentaNYL (PF) 50 MCG/ML 2 ML AMP ONE
[2021-04-22 11:06] VITALS: BP 151/67; PULSE 46; RESP 16; TEMP 96.6
[2021-04-22 11:41] LABS: INR 1.3 (<1.2)
[2021-04-22 11:53] LABS: Potassium 3.9 mmol/L (3.5-5.1)
--- NOTE | 2021-04-22 11:58 | P.GSHP ---
History of Present Illness H&P Date: 04/22/21 Chief Complaint: Dysphagia, GERD This is a 72-year-old female some chronic issues with dysphagia and GERD. Patient has a moderate size hiatal hernia. She resents today for laparoscopic repair. Past Medical History Past Medical History: Atrial Fibrillation, Deep Vein Thrombosis (DVT), GERD/Reflux, Hyperlipidemia, Hypertension, Seizure Disorder, Skin Disorder, Thyroid Disorder Additional Past Medical History / Comment(s): Irregular heart beat, last seizure 30-40 yrs ago, goiter, bronchitis, sinus headaches, diverticulosis, diarrhea, hemorrhoids, vitamin D deficiency, osteoporosis, occ. vertigo,. hiatal hernia, rosacea History of Any Multi-Drug Resistant Organisms: None Reported Past Surgical History: Breast Surgery, Cholecystectomy, Tonsillectomy Additional Past Surgical History / Comment(s): Colonoscopies, bilateral breast reductions, Past Anesthesia/Blood Transfusion Reactions: No Reported Reaction Smoking Status: Never smoker - Past Family History Mother Family Medical History: CVA/TIA Additional Family Medical History / Comment(s): Mother had TIAs and at the age of 100yrs from a CVA Father Family Medical History: COPD Additional Family Medical History / Comment(s): Father had heart problems. He from emphysema at the age of 70yrs. Medications and Allergies Home Medications Medication Instructions Recorded Confirmed Type Alendronate Sodium [Fosamax] 70 mg PO WE 07/19/17 04/22/21 History OXcarbazepine [Trileptal] 150 mg PO BID 07/19/17 04/22/21 History Simvastatin [Zocor] 10 mg PO HS 07/19/17 04/22/21 History Metoprolol Tartrate [Lopressor] 25 mg PO BID 04/22/19 04/22/21 History Warfarin [Coumadin] 3 mg PO DAILY 04/22/19 04/22/21 History Warfarin [Coumadin] 4.5 mg PO SUMOWEFR 04/22/19 04/22/21 History Benazepril HCl 40 mg PO BID 01/09/21 04/22/21 History Dicyclomine [Bentyl] 10 mg PO QID PRN 01/09/21 04/22/21 History L.acidoph,Paracasei, B.lactis 1 cap PO 1200 01/09/21 04/22/21 History [Probiotic] Wheat Dextrin [Benefiber] 1 packet PO DAILY 01/09/21 04/22/21 History Cholecalciferol (Vitamin D3) 125 mcg PO 1200 03/28/21 04/22/21 History [Vitamin D3 (5000 Iu)] Hydrochlorothiazide 12.5 mg PO DAILY 03/28/21 04/22/21 History [hydroCHLOROthiazide] Vitamin B Complex 1 each PO HS 03/28/21 04/22/21 History amLODIPine [Norvasc] 10 mg PO DAILY 03/28/21 04/22/21 History Biotin 5,000 mcg PO DAILY 04/18/21 04/22/21 History Allergies Allergy/AdvReac Type Severity Reaction Status Date / Time No Known Allergies Allergy Verified 04/22/21 11:09 Surgical - Exam Vital Signs Temp Pulse Resp BP 96.6 F L 46 L 16 151/67 04/22/21 11:04 04/22/21 11:04 04/22/21 11:04 04/22/21 11:04 - General well developed, well nourished, no distress - Eyes PERRL - ENT normal pinna - Neck no masses - Respiratory normal expansion - Cardiovascular Rhythm: regular - Abdomen Abdomen: soft, non tender Results - Labs 04/22/21 11:20 Abnormal Lab Results - Last 24 Hours (Table) 04/22/21 Range/Units 11:20 Sodium 124 L (137-145) mmol/L Chloride 87 L (98-107) mmol/L Diabetes panel 04/22/21 Range/Units 11:20 Sodium 124 L (137-145) mmol/L Potassium 3.9 (3.5-5.1) mmol/L Chloride 87 L (98-107) mmol/L Carbon Dioxide 28 (22-30) mmol/L Pituitary panel 04/22/21 Range/Units 11:20 Sodium 124 L (137-145) mmol/L Potassium 3.9 (3.5-5.1) mmol/L Chloride 87 L (98-107) mmol/L Carbon Dioxide 28 (22-30) mmol/L Adrenal panel 04/22/21 Range/Units 11:20 Sodium 124 L (137-145) mmol/L Potassium 3.9 (3.5-5.1) mmol/L Chloride 87 L (98-107) mmol/L Carbon Dioxide 28 (22-30) mmol/L Assessment and Plan Assessment: GERD, dysphagia. We'll perform laparoscopic repair of hiatal hernia.
== END 2021-04-22 12:36 | disposition home or self-care (01) ==
LOC: OR 08:35
PROVIDERS: ATTEND Surgery
DX: K44.9 Diaphragmatic hernia without obstruction or gangrene (principal); Z53.8 Procedure and treatment not carried out for other reasons; E87.1 Hypo-osmolality and hyponatremia; K21.9 Gastro-esophageal reflux disease without esophagitis; I48.91 Unspecified atrial fibrillation; Z86.718 Personal history of other venous thrombosis and embolism; E78.5 Hyperlipidemia, unspecified; I10 Essential (primary) hypertension; E07.9 Disorder of thyroid, unspecified; L71.9 Rosacea, unspecified; Z20.822 Contact with and (suspected) exposure to COVID-19; E04.9 Nontoxic goiter, unspecified; E55.9 Vitamin D deficiency, unspecified; M81.0 Age-related osteoporosis without current pathological fracture; K57.30 Diverticulosis of large intestine without perforation or abscess without bleeding; Z90.49 Acquired absence of other specified parts of digestive tract; Z90.89 Acquired absence of other organs; Z98.890 Other specified postprocedural states; Z82.3 Family history of stroke; Z83.6 Family history of other diseases of the respiratory system; Z79.01 Long term (current) use of anticoagulants; Z79.899 Other long term (current) drug therapy
CPT/HCPCS: 80051; 85610; 87635; J1100

== ENCOUNTER → 2021-04-30 | Outpatient (CLI) | payer MEDICARE, BC ==
[2021-04-30 19:54] LABS: African American GFR (CKD) 81.8 (60.0-200.0); Anion Gap 9.2 mmol/L (4.00-12.00); Calcium 9.4 mg/dL (8.7-10.3); Carbon Dioxide 28.8 mmol/L (21.6-31.8); Non-African American GFR(CKD) 70.6 (60.0-200.0); Potassium 4.1 mmol/L (3.5-5.5)
== END | disposition home or self-care (01) ==
LOC: LABWHC1 10:04
PROVIDERS: ATTEND Surgery
DX: E87.1 Hypo-osmolality and hyponatremia (principal)
CPT/HCPCS: 36415; 80048

== ENCOUNTER → 2021-05-19 | Outpatient (CLI) | payer MEDICARE, BC ==
[2021-05-19 12:07] LABS: Basophils % (A) 1 %; Eosinophils % (A) 0 %; HGB 12.8 gm/dL (11.4-16.0); Lymphocytes # (A) 0.8 k/uL (1.0-4.8); Lymphocytes % (A) 13 %; MCH 31.3 pg (25.0-35.0); MCHC 33.8 g/dL (31.0-37.0); MCV 92.7 fL (80.0-100.0); Mean Platelet Volume 7.4; Monocytes # (A) 0.5 k/uL (0-1.0); Monocytes % (A) 9 %; Neutrophils # (A) 4.4 k/uL (1.3-7.7); Neutrophils % (A) 74 %; Platelet Count 283 k/uL (150-450); RDW 13.3 % (11.5-15.5)
== END | disposition home or self-care (01) ==
LOC: LABPAT 10:06
PROVIDERS: ATTEND Surgery
DX: Z01.812 Encounter for preprocedural laboratory examination (principal); K21.9 Gastro-esophageal reflux disease without esophagitis; K44.9 Diaphragmatic hernia without obstruction or gangrene; D64.9 Anemia, unspecified; F17.200 Nicotine dependence, unspecified, uncomplicated
CPT/HCPCS: 36415; 85025

== ENCOUNTER 2021-05-21 09:56 | Day surgery (SDC) | payer MEDICARE, BC ==
[~2021-05-21 09:56] MED LIST changes: -LACTATED RINGERS 1,000 ML IV SCH; +MIDAZOLAM 2 MG/2 ML VIAL IV PRN
[2021-05-21] MEDS: LACTATED RINGERS 1,000 ML IV SCH (11:07)
--- NOTE | 2021-05-21 11:31 | P.GSHP ---
History of Present Illness H&P Date: 05/21/21 Chief Complaint: GERD Is a 72-year-old female who's had complaints of GERD. Patient has a moderate size hiatal hernia. Patient will undergo laparoscopic repair of hiatal hernia today. Past Medical History Past Medical History: Atrial Fibrillation, Deep Vein Thrombosis (DVT), GERD/Reflux, Hyperlipidemia, Hypertension, Seizure Disorder, Skin Disorder, Thyroid Disorder Additional Past Medical History / Comment(s): Irregular heart beat, last seizure 30-40 yrs ago, goiter, bronchitis, sinus headaches, diverticulosis, diarrhea, hemorrhoids, vitamin D deficiency, osteoporosis, occ. vertigo, hiatal hernia, ro sacea. History of Any Multi-Drug Resistant Organisms: None Reported Past Surgical History: Breast Surgery, Cholecystectomy, Tonsillectomy Additional Past Surgical History / Comment(s): Colonoscopies, bilateral breast reduction. Past Anesthesia/Blood Transfusion Reactions: No Reported Reaction Past Psychological History: No Psychological Hx Reported Smoking Status: Never smoker Past Alcohol Use History: None Reported Past Drug Use History: None Reported - Past Family History Mother Family Medical History: CVA/TIA Additional Family Medical History / Comment(s): Mother had TIAs and at the age of 100yrs from a CVA. Father Family Medical History: COPD Additional Family Medical History / Comment(s): Father had heart problems. He from emphysema at the age of 70yrs. Medications and Allergies Home Medications Medication Instructions Recorded Confirmed Type Alendronate Sodium [Fosamax] 70 mg PO WE 07/19/17 05/21/21 History OXcarbazepine [Trileptal] 150 mg PO BID 07/19/17 05/21/21 History Simvastatin [Zocor] 10 mg PO HS 07/19/17 05/21/21 History Metoprolol Tartrate [Lopressor] 25 mg PO BID 04/22/19 05/21/21 History Warfarin [Coumadin] 3 mg PO TUTHSA 04/22/19 05/21/21 History Warfarin [Coumadin] 4.5 mg PO SUMOWEFR 04/22/19 05/21/21 History Benazepril HCl 40 mg PO QAM 01/09/21 05/21/21 History Dicyclomine [Bentyl] 10 mg PO QID PRN 01/09/21 05/21/21 History L.acidoph,Paracasei, B.lactis 1 cap PO DAILY 01/09/21 05/21/21 History [Probiotic] Wheat Dextrin [Benefiber] 1 packet PO DAILY 01/09/21 05/21/21 History Cholecalciferol (Vitamin D3) 125 mcg PO DAILY 03/28/21 05/21/21 History [Vitamin D3 (5000 Iu)] Hydrochlorothiazide 12.5 mg PO QAM 03/28/21 05/21/21 History [hydroCHLOROthiazide] amLODIPine [Norvasc] 10 mg PO QAM 03/28/21 05/21/21 History Biotin 5,000 mcg PO HS 04/18/21 05/21/21 History Benazepril [Lotensin] 20 mg PO HS 05/16/21 05/21/21 History Sodium Bicarbonate Tab 650 mg PO MOWEFR 05/16/21 05/21/21 History Allergies Allergy/AdvReac Type Severity Reaction Status Date / Time No Known Allergies Allergy Verified 05/21/21 10:38 Surgical - Exam Vital Signs Temp Pulse Resp BP Pulse Ox 97.9 F 52 L 18 161/66 97 05/21/21 10:53 05/21/21 10:53 05/21/21 10:53 05/21/21 10:53 05/21/21 10:53 - General well developed, well nourished - Eyes PERRL - ENT normal pinna - Neck no masses - Respiratory normal expansion - Cardiovascular Rhythm: regular - Abdomen Abdomen: soft, non tender Assessment and Plan Assessment: Hiatal hernia Dysphagia and GERD We'll perform laparoscopic repair.
[2021-05-21 11:39] LABS: INR 0.9 (<1.2); Partial Thromboplastin Time 25.1 sec (22.0-30.0)
[2021-05-21] MEDS ORDERED: NEOSTIGMINE 1 MG/ML 10 ML VIAL ONE (11:52)
[2021-05-21] MEDS ORDERED: SUCCINYLCHOLINE CHLORIDE 100 MG/5 ML SYR IV ONE (11:52)
[2021-05-21] MEDS ORDERED: fentaNYL (PF) 50 MCG/ML 2 ML AMP ONE (11:52)
[2021-05-21] MEDS ORDERED: LIDOCAINE 1% INJ 10MG/ML (20 ML MDV) ONE (11:52)
[2021-05-21] MEDS ORDERED: ROCURONIUM 10 MG/ML (5 ML VIAL) IV ONE (11:52)
[2021-05-21] MEDS ORDERED: PROPOFOL 10 MG/ML 20 ML VIAL IV ONE (11:52)
[2021-05-21] MEDS ORDERED: GLYCOPYRROLATE 0.2 MG/ML 2 ML VIAL ONE (11:52)
[2021-05-21] MEDS ORDERED: MIDAZOLAM 2 MG/2 ML VIAL ONE (11:52)
[2021-05-21] MEDS ORDERED: ePHEDrine SULFATE/0.9% NACL/PF 50 MG/5 ML SYRINGE IV ONE (11:52)
[2021-05-21] MEDS ORDERED: BUPIVACAINE (PF) 0.25% 30 ML VIAL SQ ONE (12:32)
[2021-05-21] MEDS ORDERED: HYDROmorphone 1 MG/ML 1 ML SYRINGE IVP PRN (12:59)
[2021-05-21] MEDS ORDERED: ONDANSETRON 4 MG/2 ML VIAL IVP PRN (12:59)
--- NOTE | 2021-05-21 12:59 | P.OP ---
Date of Procedure: 05/21/21 Preoperative Diagnosis: Hiatal hernia Postoperative Diagnosis: Hiatal hernia Procedure(s) Performed: Laparoscopic repair of hiatal hernia with 180 fundoplication Anesthesia: RAVEN Surgeon: Ulices Wiley Estimated Blood Loss (ml): 10 Pathology: none sent Condition: stable Disposition: PACU Description of Procedure: Shahzad patient was placed on the operating table in the supine position. The patient received general anesthesia. And was placed in dorsal lithotomy position. The patient was prepped and draped in the usual sterile fashion. The skin incision sites were anesthetized with 1% local Xylocaine. The skin was incised in the left periumbilical area and then using a blade less 5 mm trocar under direct visualization panel cavity was entered. After adequate insufflation the laparoscope was then placed into the peritoneal cavity. Next a 5 mm trochars placed in the right epigastric position. Another 5 millimeter trocar the right lateral position. Another 5 millimeter trocar in the left lateral position a 5 mm trocar is placed in the left epigastric position. And then the initial 5 mm trocar was exchanged for a 10 mm trocar. The left lateral lobe liver was retracted. The hernia was seen. The crural defect was then dissected using the Harmonic scissors device. A 360 crural dissection was performed the esophagus stomach was reduced back into the peritoneal Cavity. The crural defect was then closed using 2-0 Ethibond suture. Next the fundus of the stomach was mobilized using the [place] scissors device. and then a 58- [place] bougie dilator was placed oropharynx passed into the esophagus and stomach the fundal plication wrap was then performed by grasping the fundus posteriorly and bringing it around the esophagus and stomach 180 fundoplication was then performed using 2-0 Ethibond suture. Care was taken that the fundal location rested over top of the intra-abdominal esophagus. There was no injury seen to the stomach or esophagus. The dilator was then withdrawn. The abdomen was irrigated there is no bleeding seen. The trochars were then withdrawn and then skin incision sites were closed using 3-0 Monocryl suture Steri-Strips are applied. Patient thought procedure well and sent to recovery room in stable condition.
[2021-05-21 15:17] VITALS: BMI 25.6
--- NOTE | 2021-05-21 16:09 | FL ---
Single contrast esophagram EXAMINATION TYPE: FL esophagus cervic/pharynx DATE OF EXAM: 05/21/2021 3:51 PM COMPARISON: NONE CLINICAL HISTORY: Status post Shay fundoplication The patient ingested contrast without difficulty or delay. Noted are changes of Shay fundoplicatio n. There is no evidence for leak or obstruction. Small amount of residual contrast within the distal esophagus. IMPRESSION: Post-surgical change of Shay fundoplication without evidence for leak or obstruction.
[2021-05-21] MEDS: D5-0.45% NACL WITH KCL 20MEQ/L 1,000 ML IV SCH ×2 (17:08→23:24)
[2021-05-21] MEDS: BENZOCAINE/MENTHOL LOZENG 1 EACH LOZENGE MUCOUS MEM PRN ×2 (20:09→23:24)
[2021-05-21] MEDS: FAMOTIDINE 20 MG/2 ML VIAL IV SCH (20:10)
[2021-05-22] MEDS: D5-0.45% NACL WITH KCL 20MEQ/L 1,000 ML IV SCH ×2 (05:23→13:38)
[2021-05-22] MEDS: LACTATED RINGERS 1,000 ML IV SCH (06:55)
[2021-05-22] MEDS: FAMOTIDINE 20 MG/2 ML VIAL IV SCH (08:15)
[2021-05-22] MEDS ORDERED: ENOXAPARIN 40 MG/0.4 ML SYRINGE SQ SCH (09:00)
[2021-05-22 09:03] VITALS: BP 144/61; PULSE 68; RESP 16; TEMP 97.9
[2021-05-22] MEDS ORDERED: OXcarbazepine 150 MG TAB PO SCH (09:15)
[2021-05-22] MEDS ORDERED: METOPROLOL TARTRATE 25 MG TAB PO SCH (09:15)
[2021-05-22 09:56] LABS: Basophils % (A) 0 %; Eosinophils % (A) 0 %; HCT 33.3 % (34.0-46.0); HGB 11.9 gm/dL (11.4-16.0); Lymphocytes # (A) 0.5 k/uL (1.0-4.8); Lymphocytes % (A) 5 %; MCH 32.6 pg (25.0-35.0); MCHC 35.7 g/dL (31.0-37.0); MCV 91.2 fL (80.0-100.0); Mean Platelet Volume 7.3; Monocytes % (A) 9 %; Neutrophils # (A) 9.7 k/uL (1.3-7.7); Neutrophils % (A) 85 %; Platelet Count 227 k/uL (150-450); RBC 3.66 m/uL (3.80-5.40); RDW 12.9 % (11.5-15.5); WBC 11.4 k/uL (3.8-10.6)
[2021-05-22] MEDS: BENZOCAINE/MENTHOL LOZENG 1 EACH LOZENGE MUCOUS MEM PRN (09:56)
[2021-05-22 10:11] LABS: African American GFR (CKD) >90 (>60 ml/min/1.73 sqM); Anion Gap 4 mmol/L; Blood Urea Nitrogen 7 mg/dL (7-17); Calcium 8.5 mg/dL (8.4-10.2); Carbon Dioxide 27 mmol/L (22-30); Chloride 100 mmol/L (98-107); Glucose 142 mg/dL (74-99); Non-African American GFR(CKD) >90 (>60 ml/min/1.73 sqM); Potassium 4.2 mmol/L (3.5-5.1); Sodium 131 mmol/L (137-145)
[2021-05-22] MEDS ORDERED: ACETAMINOPHEN TAB 500 MG TAB PO PRN (10:47)
--- NOTE | 2021-05-22 13:33 | P.CONS ---
History of Present Illness - Reason for Consult Consult date: 05/22/21 Medical management hypertension ,seizure disorder Requesting physician: Ulices Wiley - Chief Complaint Gastroesophageal reflux disease, dysphagia - History of Present Illness This is a 80-year-old pleasant female with past medical history of gastroesophageal reflux disease, dysphagia , recently repaired hiatal hernia 04/28 ,atrial fibrillation, DVT, hyperlipidemia, hypertension, seizure disorder, thyroid disorder and multiple other medical issues. Status post elective laparoscopic repair of hiatal hernia with Shay fundoplication. Tolerated procedure well. Completed esophagram reporting without evidence for leak or obstruction. Maintain IV fluid hydration. Denies chest pain, palpitations or shortness of breath. Afebrile. Review of Systems ROS Statement: Those systems with pertinent positive or pertinent negative responses have been documented in the HPI. ROS Other: All systems not noted in ROS Statement are negative. Past Medical History Past Medical History: Atrial Fibrillation, Deep Vein Thrombosis (DVT), GERD/Reflux, Hyperlipidemia, Hypertension, Seizure Disorder, Skin Disorder, Thyroid Disorder Additional Past Medical History / Comment(s): Irregular heart beat, last seizure 30-40 yrs ago, goiter, bronchitis, sinus headaches, diverticulosis, diarrhea, hemorrhoids, vitamin D deficiency, osteoporosis, occ. vertigo, hiatal hernia, rosacea. History of Any Multi-Drug Resistant Organisms: None Reported Past Surgical History: Breast Surgery, Cholecystectomy, Tonsillectomy Additional Past Surgical History / Comment(s): Colonoscopies, bilateral breast reduction. Past Anesthesia/Blood Transfusion Reactions: No Reported Reaction Past Psychological History: No Psychological Hx Reported Additional Psychological History / Comment(s): . Smoking Status: Never smoker Past Alcohol Use History: None Reported Past Drug Use History: None Reported - Past Family History Mother Family Medical History: CVA/TIA Additional Family Medical History / Comment(s): Mother had TIAs and at the age of 100yrs from a CVA. Father Family Medical History: COPD Additional Family Medical History / Comment(s): Father had heart problems. He from emphysema at the age of 70yrs. Medications and Allergies Home Medications Medication Instructions Recorded Confirmed Type Alendronate Sodium [Fosamax] 70 mg PO WE 07/19/17 05/21/21 History OXcarbazepine [Trileptal] 150 mg PO BID 07/19/17 05/21/21 History Simvastatin [Zocor] 10 mg PO HS 07/19/17 05/21/21 History Metoprolol Tartrate [Lopressor] 25 mg PO BID 04/22/19 05/21/21 History Warfarin [Coumadin] 3 mg PO TUTHSA 04/22/19 05/21/21 History Warfarin [Coumadin] 4.5 mg PO SUMOWEFR 04/22/19 05/21/21 History Benazepril HCl 40 mg PO QAM 01/09/21 05/21/21 History Dicyclomine [Bentyl] 10 mg PO QID PRN 01/09/21 05/21/21 History L.acidoph,Paracasei, B.lactis 1 cap PO DAILY 01/09/21 05/21/21 History [Probiotic] Wheat Dextrin [Benefiber] 1 packet PO DAILY 01/09/21 05/21/21 History Cholecalciferol (Vitamin D3) 125 mcg PO DAILY 03/28/21 05/21/21 History [Vitamin D3 (5000 Iu)] Hydrochlorothiazide 12.5 mg PO QAM 03/28/21 05/21/21 History [hydroCHLOROthiazide] amLODIPine [Norvasc] 10 mg PO QAM 03/28/21 05/21/21 History Biotin 5,000 mcg PO HS 04/18/21 05/21/21 History Benazepril [Lotensin] 20 mg PO HS 05/16/21 05/21/21 History Sodium Bicarbonate Tab 650 mg PO MOWEFR 05/16/21 05/21/21 History Allergies Allergy/AdvReac Type Severity Reaction Status Date / Time No Known Allergies Allergy Verified 05/21/21 10:38 Physical Exam Vitals: Vital Signs Temp Pulse Pulse Resp BP BP Pulse Ox 05/22/21 08:25 97.9 F 68 16 144/61 96 05/22/21 01:03 97.7 F 70 18 152/65 95 05/21/21 19:47 97.5 F L 76 17 107/55 94 L 05/21/21 16:43 65 16 108/64 96 05/21/21 16:29 75 16 117/57 95 05/21/21 16:13 67 17 110/62 95 05/21/21 15:58 63 17 115/62 95 05/21/21 15:43 68 17 115/60 95 05/21/21 14:54 64 18 119/62 94 L 05/21/21 14:40 97.5 F L 61 16 119/56 95 05/21/21 14:15 56 L 14 122/58 97 05/21/21 13:53 57 L 16 140/63 95 05/21/21 13:38 65 16 140/65 97 05/21/21 13:23 63 16 134/63 98 05/21/21 13:08 97.1 F L 77 18 145/65 98 Intake and Output 05/21/21 05/22/21 05/22/21 22:59 06:59 14:59 Intake Total 362.5 1000 Output Total 550 Balance -187.5 1000 Intake: Intake, IV Titration 362.5 1000 Amount D5-0.45% NaCl with KCl 312.5 1000 20Meq/l 1,000 ml @ 125 mls/hr IV .Q8H DORINA Rx#: [id number] ceFAZolin 2 gm In Sodium 50 Chloride 0.9% 50 ml @ 100 mls/hr IVPB Q8H DORINA Rx#: [id number] Output: Urine 550 Other: Voiding Method Toilet # Voids 1 4 2 Weight 57.5 kg PHYSICAL EXAM: VITAL SIGNS: As above GENERAL: Sitting up in bed, no acute distress HEENT: Conjunctivae normal. eyes normal. NECK: No JVD. No thyroid enlargement. No LNs CARDIOVASCULAR: S1, S2 regular. No murmur RESPIRATION: Breath sounds diminished in the bases. No rhonchi or crackles. No bronchial breathing. ABDOMEN: Soft, status post surgery, laparoscopic sites clean ,dry. No guarding. Bowel sounds heard. LEGS: No edema. no swelling PSYCHIATRY: Alert and oriented X3, mood and affect normal. NERVOUS SYSTEM: Cranial N 2-12 grossly normal. Moves all 4 limbs. No focal deficits. Strength and sensation grossly intact.. Skin: Warm and dry, no rash Lymphatic system. No LN neck axilla. Results CBC & Chem 7: 05/22/21 09:27 05/22/21 09:27 Labs: Abnormal Lab Results - Last 24 Hours (Table) 05/22/21 05/22/21 Range/Units 09:27 09:27 WBC 11.4 H (3.8-10.6) k/uL RBC 3.66 L (3.80-5.40) m/uL Hct 33.3 L (34.0-46.0) % Neutrophils # 9.7 H (1.3-7.7) k/uL Lymphocytes # 0.5 L (1.0-4.8) k/uL Sodium 131 L (137-145) mmol/L Creatinine 0.51 L (0.52-1.04) mg/dL Glucose 142 H (74-99) mg/dL Assessment and Plan Assessment: Dysphagia ,Gastroesophageal reflux disease status post laparoscopic repair of hiatal hernia with Shay fundoplication Recent Laparoscopic hiatal hernia repair 04/22/2021 Seizure disorder Chronic proximal atrial fibrillation History and DVT Plan: Continue on current medication regime ,monitoring and symptomatic treatment. Labs ordered, pending. Aggressive pulmonary toileting with Incentive spirometer ordered. Home meds reviewed, currently initiating beta kleber; this morning hypertensive, systolic blood pressure 150s, during the night systolic blood pressures low 100s. Reevaluate blood pressure gradually resume further home antihypertensives as needed. Trileptal resumed. Aggressive pulmonary toileting with incentive spirometer ordered. GI and DVT prophylaxis in place with Lovenox and Pepcid.increase ambulation as tolerated. Thank you for the consult. The impression and plan of care has been dictated as directed. : I performed a history and examination of this patient, discussed the same with the dictator. I agree with the dictator's note ,documented as a scribe. Any additional findings or plans will be noted.
--- NOTE | 2021-05-22 13:38 | P.DS ---
Providers Expected date of discharge: 05/22/21 Attending physician: Ulices Wiley Consults: 05/21/21 12:59 Consult Physician Routine Consulting Provider: Evangelista Osuna Consult Reason/Comments: Medical management Do you want consulting provider notified?: Yes Primary care physician: Evangelista Osuna Hospital Course: Discharge diagnosis 1. Hiatal hernia status post Laparoscopic repair of hiatal hernia with 180 fundoplication 2. Leukocytosis likely secondary to the dexamethasone Hospital course This is a 72-year-old female who's had complaints of GERD. Patient has a moderate size hiatal hernia. She is status post Laparoscopic repair of hiatal hernia with 180 fundoplication. Patient has tolerated surgery well. Her pain is controlled. She is tolerating the Alireza clear liquid diet. She is having flatus. Afebrile. She has been up and ambulating. Her upper GI showed no evidence of leak or obstruction. Patient is stable for discharge. Please refer to chart for any further details. Physician Mirror Framer note has been reviewed by physician. Signing provider agrees with the documented findings, assessment, and plan of care. Patient Condition at Discharge: Stable Plan - Discharge Summary Discharge Rx Participant: No New Discharge Prescriptions: New Acetaminophen Tab [Tylenol Tab] 650 mg PO Q4H PRN #30 tablet PRN Reason: Pain No Action OXcarbazepine [Trileptal] 150 mg PO BID Simvastatin [Zocor] 10 mg PO HS Alendronate Sodium [Fosamax] 70 mg PO WE Warfarin [Coumadin] 3 mg PO TUTHSA Warfarin [Coumadin] 4.5 mg PO SUMOWEFR Metoprolol Tartrate [Lopressor] 25 mg PO BID L.acidoph,Paracasei, B.lactis [Probiotic] 1 cap PO DAILY Dicyclomine [Bentyl] 10 mg PO QID PRN PRN Reason: Gi Upset Benazepril HCl 40 mg PO QAM Wheat Dextrin [Benefiber] 1 packet PO DAILY Biotin 5,000 mcg PO HS Sodium Bicarbonate Tab 650 mg PO MOWEFR amLODIPine [Norvasc] 10 mg PO QAM Cholecalciferol (Vitamin D3) [Vitamin D3 (5000 Iu)] 125 mcg PO DAILY Hydrochlorothiazide [hydroCHLOROthiazide] 12.5 mg PO QAM Benazepril [Lotensin] 20 mg PO HS Discharge Medication List Alendronate Sodium [Fosamax] 70 mg PO WE 07/19/17 [History] OXcarbazepine [Trileptal] 150 mg PO BID 07/19/17 [History] Simvastatin [Zocor] 10 mg PO HS 07/19/17 [History] Metoprolol Tartrate [Lopressor] 25 mg PO BID 04/22/19 [History] Warfarin [Coumadin] 3 mg PO TUTHSA 04/22/19 [History] Warfarin [Coumadin] 4.5 mg PO SUMOWEFR 04/22/19 [History] Benazepril HCl 40 mg PO QAM 01/09/21 [History] Dicyclomine [Bentyl] 10 mg PO QID PRN 01/09/21 [History] L.acidoph,Paracasei, B.lactis [Probiotic] 1 cap PO DAILY 01/09/21 [History] Wheat Dextrin [Benefiber] 1 packet PO DAILY 01/09/21 [History] Cholecalciferol (Vitamin D3) [Vitamin D3 (5000 Iu)] 125 mcg PO DAILY 03/28/21 [History] Hydrochlorothiazide [hydroCHLOROthiazide] 12.5 mg PO QAM 03/28/21 [History] amLODIPine [Norvasc] 10 mg PO QAM 03/28/21 [History] Biotin 5,000 mcg PO HS 04/18/21 [History] Benazepril [Lotensin] 20 mg PO HS 05/16/21 [History] Sodium Bicarbonate Tab 650 mg PO MOWEFR 05/16/21 [History] Acetaminophen Tab [Tylenol Tab] 650 mg PO Q4H PRN #30 tablet 05/22/21 [Rx] Follow up Appointment(s)/Referral(s): Ulices Wiley MD [STAFF PHYSICIAN] - 1 Week Activity/Diet/Wound Care/Special Instructions: Medicine service to complete discharge med rec No lifting over 10 pounds You may shower. No soaking or tub baths for 2 weeks Very light activity until you are reevaluated at your follow up appointment with your surgeon No straws or carbonated beverages Continue a full liquid diet for 2 weeks Discharge Disposition: HOME SELF-CARE
== END 2021-05-22 14:22 | disposition home or self-care (01) ==
LOC: OR 09:56 → 6PED 14:17 → OR 05-22 14:22
PROVIDERS: ATTEND Surgery
DX: K44.9 Diaphragmatic hernia without obstruction or gangrene (principal); K21.9 Gastro-esophageal reflux disease without esophagitis; J44.9 Chronic obstructive pulmonary disease, unspecified; Z86.73 Personal history of transient ischemic attack (TIA), and cerebral infarction without residual deficits; R13.10 Dysphagia, unspecified; E07.9 Disorder of thyroid, unspecified; I48.91 Unspecified atrial fibrillation; Z86.718 Personal history of other venous thrombosis and embolism; D72.829 Elevated white blood cell count, unspecified; E78.5 Hyperlipidemia, unspecified; G40.909 Epilepsy, unspecified, not intractable, without status epilepticus; I10 Essential (primary) hypertension; M81.0 Age-related osteoporosis without current pathological fracture; Z79.01 Long term (current) use of anticoagulants; Z79.899 Other long term (current) drug therapy
CPT/HCPCS: 43281; 80048; 83735; 85025; 85610; 85730; 74210; J2250; J1100; J2710; J0690 ×2; J2405; J2001; J1650; J3010; J0330; J2704; Q9967; J1644

== ENCOUNTER → 2021-07-21 | Outpatient (CLI) | payer MEDICARE, BC ==
--- NOTE | 2021-07-21 12:56 | BD ---
EXAMINATION TYPE: Axial Bone Density DATE OF EXAM: 07/21/2021 COMPARISON: 12/09/2016 CLINICAL HISTORY: Height: 58 IN Weight: 121 LBS RISK FACTORS HISTORY OF: Active: YES Postmenopausal woman: AGE 52 MEDICATIONS: Osteoporosis Medications: YES Which medication: Fosamax How Long: APPROX 10 YEARS Additional Medications: FOSAMAX, CALCIUM, VIT D,DICYCLOMINE, BENAZEPRIL, WARFARIN, METOPROLOL, PROBIO TIC, SIMVASTATIN, BIOTIN EXAM MEASUREMENTS: Bone mineral densitometry was performed using the [employer] System. Bone mineral density as measured about the Lumbar spine is: ----- L1-L4(G/cm2): 1.093 T Score Values are as follows: ----- L2: -1.2 ----- L3: -0.1 ----- L4: -0.9 ----- L1-L4: -0.7 Bone mineral density has: Increased 1.6% since study of: 12/09/2016 Bone mineral density about the R hip (g/cm2): 0.743 Bone mineral density about the L hip (g/cm2): 0.727 T Score values are as follows: -----R Neck: -2.1 -----L Neck: -2.2 -----R Total: -1.3 -----L Total: -1.4 Bone mineral density has: Decreased -4.7% since study of: 12/09/2016 IMPRESSION: Osteopenia NOTE: T-SCORE=SD OF THE YOUNG ADULT MEAN.
== END | disposition home or self-care (01) ==
LOC: RADBDWWP 10:40
PROVIDERS: ATTEND Family Medicine
DX: M85.89 Other specified disorders of bone density and structure, multiple sites (principal); Z79.01 Long term (current) use of anticoagulants; Z78.0 Asymptomatic menopausal state
CPT/HCPCS: 77080

== ENCOUNTER → 2022-09-24 | Outpatient (CLI) | payer MEDICARE, BC ==
--- NOTE | 2022-09-24 13:31 | US ---
EXAMINATION TYPE: US renal artery duplex complete DATE OF EXAM: 09/24/2022 COMPARISON: NONE CLINICAL HISTORY: 82-year-old female I10 htn, I65.29 bruit. Patient on meds and has had elevated syst olic pressure of 150 for years and she states that it is normal for her. TECHNIQUE: Multiple sonographic images of the kidneys are obtained. Color Doppler and spectral wavefo rm analysis of the renal arteries. FINDINGS: MEASUREMENTS: Aortic peak systolic velocity 40.9 cm/s RENAL SIZE: Rt Kidney: 7.9 X 4.3 X 3.3CM Lt Kidney: 9.0 X 3.8 X 5.0CM No hydronephrosis on either side. There is a centrally located cyst measuring 1.9 cm and the left kid elda. RESISTANCE INDEX Right: 0.7 Left: 0.8 RA/AO RATIO (< 3.5 ) Right: 3.0 Left: 2.3 RA VELOCITY ( < 180 cm/s) Right: 120.7 Left: 91.9 IMPRESSION: No Doppler evidence for renal artery stenosis on either side.
== END | disposition home or self-care (01) ==
LOC: RADUSWWP 08:23
PROVIDERS: ATTEND Internal Medicine
DX: I10 Essential (primary) hypertension (principal); I65.29 Occlusion and stenosis of unspecified carotid artery
CPT/HCPCS: 93975

== ENCOUNTER 2023-05-21 12:54 | Emergency (ER) | payer MEDICARE, BC ==
[2023-05-21 13:37] VITALS: TEMP 98.3
[2023-05-21] MEDS ORDERED: hydrALAZINE HCL 20 MG/ML 1 ML VIAL IVP STA (13:53)
--- NOTE | 2023-05-21 14:17 | ED ---
General Adult HPI - General Chief complaint: Recheck/Abnormal Lab/Rx Stated complaint: High BP Time Seen by Provider: 05/21/23 13:40 Source: patient, RN notes reviewed, old records reviewed Mode of arrival: ambulatory Limitations: no limitations - History of Present Illness Initial comments: 82-year-old female presenting for evaluation of elevated blood pressure and headache. Patient does have history of hypertension she is currently on metoprolol, is a frail, and hydralazine per she's been compliant with her medications. 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 She's had a headache for the past 3 days which was gradual in onset. No chest pain. No abdominal pain. No vomiting. No f ocal numbness or weakness. - Related Data Home Medications Medication Instructions Recorded Confirmed Alendronate Sodium [Fosamax] 70 mg PO WE 07/19/17 05/21/21 OXcarbazepine [Trileptal] 150 mg PO BID 07/19/17 05/21/21 Simvastatin [Zocor] 10 mg PO HS 07/19/17 05/21/21 Metoprolol Tartrate [Lopressor] 25 mg PO BID 04/22/19 05/21/21 Warfarin [Coumadin] 3 mg PO TUTHSA 04/22/19 05/21/21 Warfarin [Coumadin] 4.5 mg PO SUMOWEFR 04/22/19 05/21/21 Benazepril HCl 40 mg PO QAM 01/09/21 05/21/21 Dicyclomine [Bentyl] 10 mg PO QID PRN 01/09/21 05/21/21 L.acidoph,Paracasei, B.lactis 1 cap PO DAILY 01/09/21 05/21/21 [Probiotic] Wheat Dextrin [Benefiber] 1 packet PO DAILY 01/09/21 05/21/21 Cholecalciferol (Vitamin D3) 125 mcg PO DAILY 03/28/21 05/21/21 [Vitamin D3 (5000 Iu)] amLODIPine [Norvasc] 10 mg PO QAM 03/28/21 05/21/21 hydroCHLOROthiazide 12.5 mg PO QAM 03/28/21 05/21/21 Biotin [Biotin Disolve] 5,000 mcg PO HS 04/18/21 05/21/21 Benazepril [Lotensin] 20 mg PO HS 05/16/21 05/21/21 Sodium Bicarbonate Tab 650 mg PO MOWEFR 05/16/21 05/21/21 Previous Rx's Medication Instructions Recorded Acetaminophen Tab [Tylenol Tab] 650 mg PO Q4H PRN #30 tablet 05/22/21 Allergies Allergy/AdvReac Type Severity Reaction Status Date / Time No Known Allergies Allergy Verified 05/21/23 13:37 Review of Systems ROS Statement: Those systems with pertinent positive or pertinent negative responses have been documented in the HPI. ROS Other: All systems not noted in ROS Statement are negative. Past Medical History Past Medical History: Atrial Fibrillation, Deep Vein Thrombosis (DVT), GERD/Reflux, Hyperlipidemia, Hypertension, Seizure Disorder, Skin Disorder, Thyroid Disorder Additional Past Medical History / Comment(s): Irregular heart beat, last seizure 30-40 yrs ago, goiter, bronchitis, sinus headaches, diverticulosis, diarrhea, hemorrhoids, vitamin D deficiency, osteoporosis, occ. vertigo, hiatal hernia, rosacea. History of Any Multi-Drug Resistant Organisms: None Reported Past Surgical History: Breast Surgery, Cholecystectomy, Tonsillectomy Additional Past Surgical History / Comment(s): Colonoscopies, bilateral breast reduction. Past Anesthesia/Blood Transfusion Reactions: No Reported Reaction Past Psychological History: No Psychological Hx Reported Smoking Status: Never smoker Past Alcohol Use History: None Reported Past Drug Use History: None Reported - Past Family History Mother Family Medical History: CVA/TIA Additional Family Medical History / Comment(s): Mother had TIAs and at the age of 100yrs from a CVA. Father Family Medical History: COPD Additional Family Medical History / Comment(s): Father had heart problems. He from emphysema at the age of 70yrs. General Exam Limitations: no limitations General appearance: alert, in no apparent distress Head exam: Present: atraumatic, normocephalic Eye exam: Present: normal appearance, PERRL ENT exam: Present: normal exam Neck exam: Present: normal inspection. Absent: tenderness, meningismus Respiratory exam: Present: normal lung sounds bilaterally. Absent: respiratory distress Cardiovascular Exam: Present: regular rate, normal rhythm GI/Abdominal exam: Present: soft. Absent: distended, tenderness, guarding, rebound Extremities exam: Present: normal inspection, normal capillary refill. Absent: pedal edema Neurological exam: Present: alert, oriented X3, CN II-XII intact. Absent: motor sensory deficit Psychiatric exam: Present: normal affect, normal mood Skin exam: Present: warm Course Vital Signs 05/21/23 05/21/23 13:34 14:44 Temperature 98.3 F Pulse Rate 63 Respiratory 20 Rate Blood Pressure 221/87 175/75 O2 Sat by Pulse 96 Oximetry Medical Decision Making - Medical Decision Making Was pt. sent in by a medical professional or institution (, [facility], DIETITIAN RESEARCH, urgent care, hospital, or detention...) When possible be specific @ -No Did you speak to anyone other than the patient for history (EMS, parent, family, police, friend...)? What history was obtained from this source @ -[Patient's daughter Did you review nursing and triage notes (agree or disagree)? Why? @ -I reviewed and agree with nursing and triage notes Were old charts reviewed (outside hosp., previous admission, EMS record, old EKG, old radiological studies, urgent care reports/EKG's, detention records)? Report findings @ -No old charts were reviewed Differential Diagnosis (chest pain, altered mental status, abdominal pain women, abdominal pain men, vaginal bleeding, weakness, fever, dyspnea, syncope, headache, dizziness, GI bleed, back pain, seizure, CVA, palpatations, mental health, musculoskeletal)? @ -[Elevated blood pressure, hypertensive urgency, hypertensive emergency, intracranial hemorrhage, EKG interpreted by me (3pts min.). @ -Sinus bradycardia rate of 59, W[place] interval 183, QRS duration 94, QTC 450, no ST segment elevation X-rays interpreted by me (1pt min.). @ -None done CT interpreted by me (1pt min.). @ No intracranial hemorrhage or mass effect U/S interpreted by me (1pt. min.). @ -None done What testing was considered but not performed or refused? (CT, X-rays, U/S, labs)? Why? @ -None What meds were considered but not given or refused? Why? @ -None Did you discuss the management of the patient with other professionals (professionals i.e. JULIENNE Carey, DIETITIAN RESEARCH, lab, RT, psych nurse, child protective services social worker, tax examining technician, teacher, sea air land officer, telehealth case manager)? Give summary @ -No Was smoking cessation discussed for >3mins.? @ -No Was critical care preformed (if so, how long)? @ -No Were there social determinants of health that impacted care today? How? (Homelessness, low income, unemployed, alcoholism, drug addiction, transportation, low edu. Level, literacy, decrease access to med. care, correction, rehab)? @ -No Was there de-escalation of care discussed even if they declined (Discuss DNR or withdrawal of care, Hospice)? DNR status @ -No What co-morbidities impacted this encounter? (DM, HTN, Smoking, COPD, CAD, Cancer, CVA, ARF, Chemo, Hep., AIDS, mental health diagnosis, sleep apnea, morbid obesity)? @ -[Hypertension Was patient admitted / discharged? Hospital course, mention meds given and route, prescriptions, significant lab abnormalities, going to OR and other per tinent info. @ -82-year-old female with elevated blood pressure on multiple medications. Head CT performed negative for intracranial hemorrhage, normal CBC, normal CMP,. Patient's blood pressure response to 10 of IV hydralazine. Will temporarily increase hydralazine dose to 50 mg twice daily until the patient can follow-up with her primary care physician. Undiagnosed new problem with uncertain prognosis? @ -No Drug Therapy requiring intensive monitoring for toxicity (Heparin, Nitro, Insulin, Cardizem)? @ -No Were any procedures done? @ -No Diagnosis/symptom? @ -Hypertension Acute, or Chronic, or Acute on Chronic? @ -[Acute on chronic Uncomplicated (without systemic symptoms) or Complicated (systemic symptoms)? @ -default Side effects of treatment? @ -No Exacerbation, Progression, or Severe Exacerbation? @ -No Poses a threat to life or bodily function? How? (Chest pain, [place], [place], pneumonia, PE, COPD, DKA, ARF, appy, cholecystitis, CVA, Diverticulitis, Homicidal, Suicidal, threat to staff... and all critical care pts) @ -Low-risk at this time - Lab Data Result diagrams: 05/21/23 14:05 05/21/23 14:05 Lab Results 05/21/23 05/21/23 05/21/23 Range/Units 14:05 14:05 14:05 WBC 6.2 (3.8-10.6) k/uL RBC 4.39 (3.80-5.40) m/uL Hgb 13.3 (11.4-16.0) gm/dL Hct 39.3 (34.0-46.0) % MCV 89.7 (80.0-100.0) fL MCH 30.4 (25.0-35.0) pg MCHC 33.9 (31.0-37.0) g/dL RDW 13.3 (11.5-15.5) % Plt Count 198 (150-450) k/uL MPV 8.5 Neutrophils % 76 % Lymphocytes % 12 % Monocytes % 8 % Eosinophils % 1 % Basophils % 0 % Neutrophils # 4.7 (1.3-7.7) k/uL Lymphocytes # 0.8 L (1.0-4.8) k/uL Monocytes # 0.5 (0-1.0) k/uL Eosinophils # 0.1 (0-0.7) k/uL Basophils # 0.0 (0-0.2) k/uL PT 19.0 H (9.0-12.0) sec INR 1.9 H (<1.2) APTT 33.3 H (22.0-30.0) sec Sodium 132 L (137-145) mmol/L Potassium 4.9 (3.5-5.1) mmol/L Chloride 99 (98-107) mmol/L Carbon Dioxide 25 (22-30) mmol/L Anion Gap 8 mmol/L BUN 12 (7-17) mg/dL Creatinine 0.47 L (0.52-1.04) mg/dL Est GFR (CKD-EPI)AfAm >90 (>60 ml/min/1.73 sqM) Est GFR (CKD-EPI)NonAf >90 (>60 ml/min/1.73 sqM) Glucose 103 H (74-99) mg/dL Plasma Lactic Acid Yoshi (0.7-2.0) mmol/L Calcium 8.8 (8.4-10.2) mg/dL Magnesium 1.9 (1.6-2.3) mg/dL Total Bilirubin 0.9 (0.2-1.3) mg/dL AST 46 H (14-36) U/L ALT 31 (4-34) U/L Alkaline Phosphatase 48 (38-126) U/L Troponin I (0.000-0.034) ng/mL Total Protein 7.4 (6.3-8.2) g/dL Albumin 4.5 (3.5-5.0) g/dL 05/21/23 05/21/23 Range/Units 14:05 14:05 WBC (3.8-10.6) k/uL RBC (3.80-5.40) m/uL Hgb (11.4-16.0) gm/dL Hct (34.0-46.0) % MCV (80.0-100.0) fL MCH (25.0-35.0) pg MCHC (31.0-37.0) g/dL RDW (11.5-15.5) % Plt Count (150-450) k/uL MPV Neutrophils % % Lymphocytes % % Monocytes % % Eosinophils % % Basophils % % Neutrophils # (1.3-7.7) k/uL Lymphocytes # (1.0-4.8) k/uL Monocytes # (0-1.0) k/uL Eosinophils # (0-0.7) k/uL Basophils # (0-0.2) k/uL PT (9.0-12.0) sec INR (<1.2) APTT (22.0-30.0) sec Sodium (137-145) mmol/L Potassium (3.5-5.1) mmol/L Chloride (98-107) mmol/L Carbon Dioxide (22-30) mmol/L Anion Gap mmol/L BUN (7-17) mg/dL Creatinine (0.52-1.04) mg/dL Est GFR (CKD-EPI)AfAm (>60 ml/min/1.73 sqM) Est GFR (CKD-EPI)NonAf (>60 ml/min/1.73 sqM) Glucose (74-99) mg/dL Plasma Lactic Acid Yoshi 0.9 (0.7-2.0) mmol/L Calcium (8.4-10.2) mg/dL Magnesium (1.6-2.3) mg/dL Total Bilirubin (0.2-1.3) mg/dL AST (14-36) U/L ALT (4-34) U/L Alkaline Phosphatase (38-126) U/L Troponin I 0.017 (0.000-0.034) ng/mL Total Protein (6.3-8.2) g/dL Albumin (3.5-5.0) g/dL Disposition Clinical Impression: Hypertension Disposition: HOME SELF-CARE Condition: Fair Instructions (If sedation given, give patient instructions): Hypertension (ED) Additional Instructions: Please increase hydralazine to 50 mg twice daily and call her primary care provider first thing Wednesday morning. Please return to emergency department with worsening headache, chest pain, abdominal pain. Is patient prescribed a controlled substance at d/c from ED?: No Referrals: Evangelista Osuna DO [Primary Care Provider] - 1-2 days Time of Disposition: 15:07
[2023-05-21 14:25] LABS: Basophils % (A) 0 %; Eosinophils # (A) 0.1 k/uL (0-0.7); Eosinophils % (A) 1 %; HCT 39.3 % (34.0-46.0); HGB 13.3 gm/dL (11.4-16.0); Lymphocytes # (A) 0.8 k/uL (1.0-4.8); Lymphocytes % (A) 12 %; MCH 30.4 pg (25.0-35.0); MCHC 33.9 g/dL (31.0-37.0); MCV 89.7 fL (80.0-100.0); Mean Platelet Volume 8.5; Monocytes # (A) 0.5 k/uL (0-1.0); Monocytes % (A) 8 %; Neutrophils # (A) 4.7 k/uL (1.3-7.7); Neutrophils % (A) 76 %; Platelet Count 198 k/uL (150-450); RBC 4.39 m/uL (3.80-5.40); RDW 13.3 % (11.5-15.5); WBC 6.2 k/uL (3.8-10.6)
[2023-05-21 14:33] LABS: ALT 31 U/L (4-34); AST 46 U/L (14-36); African American GFR (CKD) >90 (>60 ml/min/1.73 sqM); Albumin 4.5 g/dL (3.5-5.0); Alkaline Phosphatase 48 U/L (38-126); Anion Gap 8 mmol/L; Blood Urea Nitrogen 12 mg/dL (7-17); Calcium 8.8 mg/dL (8.4-10.2); Carbon Dioxide 25 mmol/L (22-30); Chloride 99 mmol/L (98-107); Glucose 103 mg/dL (74-99); Magnesium 1.9 mg/dL (1.6-2.3); Non-African American GFR(CKD) >90 (>60 ml/min/1.73 sqM); Potassium 4.9 mmol/L (3.5-5.1); Sodium 132 mmol/L (137-145); Total Bilirubin 0.9 mg/dL (0.2-1.3); Total Protein 7.4 g/dL (6.3-8.2)
[2023-05-21 14:42] LABS: INR 1.9 (<1.2)
[2023-05-21 14:43] LABS: Partial Thromboplastin Time 33.3 sec (22.0-30.0)
--- NOTE | 2023-05-21 14:52 | CT ---
EXAMINATION TYPE: CT brain wo con DATE OF EXAM: 05/21/2023 COMPARISON: 01/09/2021 HISTORY: 82 year-old female Headache and hypertension. TECHNIQUE: Examination was done in axial plane without intravenous contrast. Coronal and sagittal r econstructions performed. CT DLP: 1090.4 mGycm Automated exposure control for dose reduction was used. FINDINGS: There is no evidence of acute intracranial hemorrhage, acute ischemic changes, mass, mass-effect, or extra-axial fluid collection. There is no effacement of cerebral sulci or basal subarachnoid cister ns. There is no hydrocephalus. There is no midline shift. Rivera-white matter distinction is preserv ed. Similar mild cerebellar volume loss and possible aida-cisterna magna. Atherosclerotic calcifications within the carotid siphons. Mild mucosal thickening left ethmoid air cells. Mastoid air cells well pneumatized. Orbits and globes are intact. IMPRESSION: No acute intracranial abnormality seen. Similar mild cerebellar atrophy which is nonspecific; some co nsiderations include chronic seizure medication, alcohol use, or steroid use.
[2023-05-21 15:07] VITALS: BP 124/56; PULSE 70; RESP 18
== END 2023-05-21 15:47 | disposition home or self-care (01) ==
LOC: EC 12:54
DX: I10 Essential (primary) hypertension (principal); I48.91 Unspecified atrial fibrillation; E78.5 Hyperlipidemia, unspecified; K21.9 Gastro-esophageal reflux disease without esophagitis; M81.0 Age-related osteoporosis without current pathological fracture; Z86.718 Personal history of other venous thrombosis and embolism; Z79.01 Long term (current) use of anticoagulants; Z79.899 Other long term (current) drug therapy
CPT/HCPCS: 36415; 93005; 80053; 83605; 83735; 84484; 85025; 85610; 85730; 70450; 99284; 96374; J0360

== ENCOUNTER → 2023-10-04 | Outpatient (CLI) | payer MEDICARE, BC ==
--- NOTE | 2023-10-06 07:56 | MM ---
Reason for Exam: Screening (asymptomatic). Last screening mammogram was performed 6 month(s) ago. Patient History: Menarche at age 14. First Full-Term at age 23. Postmenopausal. Bilateral Reduction. Excisional Biopsy on the Right side. Excisional Biopsy on the Left side. Excisional Biopsy on the Left side. Excisional Biopsy on the Left side. Risk Values: Sneha 5 year model risk: 2.2%. NCI Lifetime model risk: 3.1%. Prior Study Comparison: 07/20/1994 Screening Mammogram, Unknown. 06/06/1997 Bilateral Special View Mammogram, [facility]. 07/10/1998 Bilateral Special View Mammogram, [facility]. 09/18/2022 Right Diagnostic Mammogram, [facility]. 03/22/2023 Bilateral Diagnostic Mammogram, [facility]. Tissue Density: There are scattered fibroglandular densities. Findings: Analyzed By CAD. There is no suspicious group of microcalcifications or new suspicious mass. Benign-appearing calcifications bilaterally. Overall Assessment: Benign, BI-RAD 2 Management: Screening Mammogram of both breasts in [address] [facility] will attempt to contact patient to return for supplemental views and ultrasound if indicated. Patient should continue monthly self-breast exams. A clinical breast exam by your physician is recommended on an annual basis. This exam should not preclude additional follow-up of suspicious palpable abnormalities. Note on Sneha scores and lifetime risk: 1. A Sneha score greater than 3% is considered moderate risk. If this is the case, consider specialist referral to assess eligibility for a risk reducing agent. 2. If overall lifetime risk for the development of breast cancer is 20% or higher, the patient may qualify for future screening with alternating mammogram and breast MRI. Electronically signed and approved by: Edin Pelaez DO
== END | disposition home or self-care (01) ==
LOC: RADMAMWWP 13:21
PROVIDERS: ATTEND Family Medicine
DX: Z12.31 Encounter for screening mammogram for malignant neoplasm of breast (principal); Z78.0 Asymptomatic menopausal state
CPT/HCPCS: 77063; 77067

== ENCOUNTER 2023-11-11 16:41 | Emergency (ER) | payer MEDICARE, BC ==
--- NOTE | 2023-11-11 17:13 | ED ---
Dizziness HPI - General Source: patient Mode of arrival: ambulatory Limitations: no limitations <Lexi Collins - Last Filed: 11/11/23 17:12> <Edin Muse - Last Filed: 11/11/23 20:19> - General Chief Complaint: Dizziness Stated Complaint: Low BP, light headed Time Seen by Provider: 11/11/23 17:12 - History of Present Illness Initial Comments: The patient is an 83-year-old female presents emergency room accompanied by daughter for dizziness and hypertension. blood Pressure was 80/57. She has some mild shortness breath and had an episode of chest pain earlier today per daughter. Denies any cough or fevers. (Lexi Collins) Patient had adjustment in blood pressure today. She was switched from hydralazine 3 times daily and metoprolol twice daily to Coreg twice daily and amlodipine once daily. Her symptoms began after initiating this medication change including lightheadedness. (Edin Muse) - Related Data Home Medications Medication Instructions Recorded Confirmed Alendronate Sodium [Fosamax] 70 mg PO WE 07/19/17 05/21/21 OXcarbazepine [Trileptal] 150 mg PO BID 07/19/17 05/21/21 Simvastatin [Zocor] 10 mg PO HS 07/19/17 05/21/21 Metoprolol Tartrate [Lopressor] 25 mg PO BID 04/22/19 05/21/21 Warfarin [Coumadin] 3 mg PO TUTHSA 04/22/19 05/21/21 Warfarin [Coumadin] 4.5 mg PO SUMOWEFR 04/22/19 05/21/21 Benazepril HCl 40 mg PO QAM 01/09/21 05/21/21 Dicyclomine [Bentyl] 10 mg PO QID PRN 01/09/21 05/21/21 L.acidoph,Paracasei, B.lactis 1 cap PO DAILY 01/09/21 05/21/21 [Probiotic] Wheat Dextrin [Benefiber] 1 packet PO DAILY 01/09/21 05/21/21 Cholecalciferol (Vitamin D3) 125 mcg PO DAILY 03/28/21 05/21/21 [Vitamin D3 (5000 Iu)] amLODIPine [Norvasc] 10 mg PO QAM 03/28/21 05/21/21 hydroCHLOROthiazide 12.5 mg PO QAM 03/28/21 05/21/21 Biotin [Biotin Disolve] 5,000 mcg PO HS 04/18/21 05/21/21 Benazepril [Lotensin] 20 mg PO HS 05/16/21 05/21/21 Sodium Bicarbonate Tab 650 mg PO MOWEFR 05/16/21 05/21/21 Previous Rx's Medication Instructions Recorded Acetaminophen Tab [Tylenol Tab] 650 mg PO Q4H PRN #30 tablet 05/22/21 Allergies Allergy/AdvReac Type Severity Reaction Status Date / Time No Known Allergies Allergy Verified 11/11/23 16:56 Review of Systems ROS Other: All systems not noted in ROS Statement are negative. <Lexi Collins - Last Filed: 11/11/23 17:12> ROS Other: All systems not noted in ROS Statement are negative. <Edin Muse - Last Filed: 11/11/23 20:19> ROS Statement: Those systems with pertinent positive or pertinent negative responses have been documented in the HPI. Past Medical History Past Medical History: Atrial Fibrillation, Deep Vein Thrombosis (DVT), GERD/Reflux, Hyperlipidemia, Hypertension, Seizure Disorder, Skin Disorder, Thyroid Disorder Additional Past Medical History / Comment(s): Irregular heart beat, last seizure 30-40 yrs ago, goiter, bronchitis, sinus headaches, diverticulosis, diarrhea, hemorrhoids, vitamin D deficiency, osteoporosis, occ. vertigo, hiatal hernia, rosacea. History of Any Multi-Drug Resistant Organisms: None Reported Past Surgical History: Breast Surgery, Cholecystectomy, Tonsillectomy Additional Past Surgical History / Comment(s): Colonoscopies, bilateral breast reduction. Past Anesthesia/Blood Transfusion Reactions: No Reported Reaction Past Psychological History: No Psychological Hx Reported Smoking Status: Never smoker Past Alcohol Use History: None Reported Past Drug Use History: None Reported - Past Family History Mother Family Medical History: CVA/TIA Additional Family Medical History / Comment(s): Mother had TIAs and at the age of 100yrs from a CVA. Father Family Medical History: COPD Additional Family Medical History / Comment(s): Father had heart problems. He from emphysema at the age of 70yrs. <Lexi Collins - Last Filed: 11/11/23 17:12> General Exam Limitations: no limitations <Lexi Collins - Last Filed: 11/11/23 17:12> General appearance: alert, in no apparent distress Head exam: Present: atraumatic, normocephalic Eye exam: Present: normal appearance, PERRL ENT exam: Present: normal exam Neck exam: Present: normal inspection Respiratory exam: Present: normal lung sounds bilaterally. Absent: respiratory distress, wheezes Cardiovascular Exam: Present: regular rate, normal rhythm, systolic murmur GI/Abdominal exam: Present: soft. Absent: distended, tenderness, guarding Extremities exam: Present: normal inspection, normal capillary refill. Absent: pedal edema Neurological exam: Present: alert, oriented X3, CN II-XII intact. Absent: motor sensory deficit Psychiatric exam: Present: normal affect, normal mood Skin exam: Present: warm, dry, intact. Absent: cyanosis, diaphoretic <Edin Muse - Last Filed: 11/11/23 20:19> - General Exam Comments Initial Comments: Visual Physical Exam Vital signs reviewed General: Well-appearing, nontoxic, no acute distress. Head: Normocephalic, atraumatic Eyes: PERRLA, EOMI ENT: Airway patent Chest: Nonlabored breathing Skin: No visual rash, normal skin tone Neuro: Alert and oriented 3 Musculoskeletal: No gross abnormalities (Lexi Collins) Course Vital Signs 11/11/23 11/11/23 16:52 19:33 Temperature 96.6 F L 97.6 F Pulse Rate 61 61 Respiratory 16 18 Rate Blood Pressure 150/65 186/75 O2 Sat by Pulse 95 95 Oximetry Medical Decision Making <Lexi Collins - Last Filed: 11/11/23 17:12> - Lab Data Result diagrams: 11/11/23 17:19 11/11/23 17:19 <Edin Muse - Last Filed: 11/11/23 20:19> - Medical Decision Making Quick note portion completed by myself, Lexi Collins PA-C (Lexi Collins) Was pt. sent in by a medical professional or institution (JULIENNE Carey, CLIENT SERVICES REPRESENTATIVE, urgent care, hospital, or [facility]...) When possible be specific @ -No Did you speak to anyone other than the patient for history (EMS, parent, family, police, friend...)? What history was obtained from this source @ -No Did you review nursing and triage notes (agree or disagree)? Why? @ -I reviewed and agree with nursing and triage notes Were old charts reviewed (outside hosp., previous admission, EMS record, old EKG, old radiological studies, urgent care reports/EKG's, [facility] records)? Report findings @ -No old charts were reviewed Differential Diagnosis (chest pain, altered mental status, abdominal pain women, abdominal pain men, vaginal bleeding, weakness, fever, dyspnea, syncope, headache, dizziness, GI bleed, back pain, seizure, CVA, palpatations, mental health, musculoskeletal)? @ Differential Dizziness: Benign paroxysmal positional Vertigo, Menieres disease, otitis media, acoustic neuroma, vertebrobasilar insufficiency, cerebellar stroke, encephalitis, hypovolemic, arrhythmia, coronary artery syndrome, anemia, this is not meant to be an all-inclusive list EKG interpreted by me (3pts min.). @ -Sinus bradycardia rate of 59, NM interval 168, QRS duration 88, QTC [address] segment changes. X-rays interpreted by me (1pt min.). @ -[Chest x-ray negative for acute cardiopulmonary findings CT interpreted by me (1pt min.). @ -CT negative for intracranial hemorrhage or mass effect U/S interpreted by me (1pt. min.). @ -None done What testing was considered but not performed or refused? (CT, X-rays, U/S, labs)? Why? @ -None What meds were considered but not given or refused? Why? @ -None Did you discuss the management of the patient with other professionals (professionals i.e. , PA, CLIENT SERVICES REPRESENTATIVE, lab, RT, psych nurse, social human services assistants, biotechnician, teacher, gift officer, machine adjuster leader case trim)? Give summary @ -[Case discussed with Dr. Osuna, will arrange for close outpatient follow-up. Was smoking cessation discussed for >3mins.? @ -No Was critical care preformed (if so, how long)? @ -No Were there social determinants of health that impacted care today? How? (Homelessness, low income, unemployed, alcoholism, drug addiction, transportation, low edu. Level, literacy, decrease access to med. care, prison, rehab)? @ -No Was there de-escalation of care discussed even if they declined (Discuss DNR or withdrawal of care, Hospice)? DNR status @ -No What co-morbidities impacted this encounter? (DM, HTN, Smoking, COPD, CAD, Cancer, CVA, ARF, Chemo, Hep., AIDS, mental health diagnosis, sleep apnea, morbid obesity)? @ -[Hypertension. Was patient admitted / discharged? Hospital course, mention meds given and r oute, prescriptions, significant lab abnormalities, going to OR and other pertinent info. @ -83 yo female presenting with dizziness, hypotension. This was likely related to new medication which was initiated today. Patient's workup in the emergency Department is unremarkable including EKG, chest x-ray, head CT, laboratory testing. Patient is feeling better at the time I reevaluation. Undiagnosed new problem with uncertain prognosis? @ -No Drug Therapy requiring intensive monitoring for toxicity (Heparin, Nitro, Insu marie, Cardizem)? @ -No Were any procedures done? @ -No Diagnosis/symptom? @ -[Hypotension secondary to medication Acute, or Chronic, or Acute on Chronic? @ Acute Uncomplicated (without systemic symptoms) or Complicated (systemic symptoms)? @ -default Side effects of treatment? @ -No Exacerbation, Progression, or Severe Exacerbation? @ -No Poses a threat to life or bodily function? How? (Chest pain, USA, SC, pneumonia, PE, COPD, DKA, ARF, appy, cholecystitis, CVA, Diverticulitis, Homicidal, Suicidal, threat to staff... and all critical care pts) @ -low Risk at this time (Edin Muse) - Lab Data Lab Results 11/11/23 11/11/23 11/11/23 Range/Units 17:19 17:19 17:19 WBC 5.1 (3.8-10.6) k/uL RBC 3.96 (3.80-5.40) m/uL Hgb 12.8 (11.4-16.0) gm/dL Hct 36.8 (34.0-46.0) % MCV 92.9 (80.0-100.0) fL MCH 32.3 (25.0-35.0) pg MCHC 34.7 (31.0-37.0) g/dL RDW 13.3 (11.5-15.5) % Plt Count 180 (150-450) k/uL MPV 8.0 Neutrophils % 80 % Lymphocytes % 9 % Monocytes % 9 % Eosinophils % 0 % Basophils % 0 % Neutrophils # 4.0 (1.3-7.7) k/uL Lymphocytes # 0.5 L (1.0-4.8) k/uL Monocytes # 0.4 (0-1.0) k/uL Eosinophils # 0.0 (0-0.7) k/uL Basophils # 0.0 (0-0.2) k/uL PT 19.5 H (10.0-12.5) sec INR 1.9 H (<1.2) Sodium 131 L (137-145) mmol/L Potassium 4.1 (3.5-5.1) mmol/L Chloride 96 L (98-107) mmol/L Carbon Dioxide 24 (22-30) mmol/L Anion Gap 11 mmol/L BUN 18 H (7-17) mg/dL Creatinine 0.83 (0.52-1.04) mg/dL Est GFR (CKD-EPI)AfAm 77 (>60 ml/min/1.73 sqM) Est GFR (CKD-EPI)NonAf 67 (>60 ml/min/1.73 sqM) Glucose 94 (74-99) mg/dL Calcium 9.2 (8.4-10.2) mg/dL Total Bilirubin 0.4 (0.2-1.3) mg/dL AST 46 H (14-36) U/L ALT 45 H (4-34) U/L Alkaline Phosphatase 49 (38-126) U/L Troponin I (0.000-0.034) ng/mL NT-Pro-B Natriuret Pep 1070 pg/mL Total Protein 6.5 (6.3-8.2) g/dL Albumin 4.0 (3.5-5.0) g/dL Urine Color Urine Appearance (Clear) Urine pH (5.0-8.0) Ur Specific [place] (1.001-1.035) Urine Protein (Negative) Urine Glucose (UA) (Negative) Urine Ketones (Negative) Urine Blood (Negative) Urine Nitrite (Negative) Urine Bilirubin (Negative) Urine Urobilinogen (<2.0) mg/dL Ur Leukocyte Esterase (Negative) Urine RBC (0-5) /hpf Urine WBC (0-5) /hpf Ur Squamous Epith Cells (0-4) /hpf Calcium Oxalate Crystal (None) /hpf Urine Bacteria (None) /hpf Hyaline Casts (0-2) /lpf Urine Mucus (None) /hpf Influenza Type A (PCR) (Not Detectd) Influenza Type B (PCR) (Not Detectd) RSV (PCR) (Not Detectd) SARS-CoV-2 (PCR) (Not Detectd) 11/11/23 11/11/23 11/11/23 Range/Units 17:19 17:19 17:30 WBC (3.8-10.6) k/uL RBC (3.80-5.40) m/uL Hgb (11.4-16.0) gm/dL Hct (34.0-46.0) % MCV (80.0-100.0) fL MCH (25.0-35.0) pg MCHC (31.0-37.0) g/dL RDW (11.5-15.5) % Plt Count (150-450) k/uL MPV Neutrophils % % Lymphocytes % % Monocytes % % Eosinophils % % Basophils % % Neutrophils # (1.3-7.7) k/uL Lymphocytes # (1.0-4.8) k/uL Monocytes # (0-1.0) k/uL Eosinophils # (0-0.7) k/uL Basophils # (0-0.2) k/uL PT (10.0-12.5) sec INR (<1.2) Sodium (137-145) mmol/L Potassium (3.5-5.1) mmol/L Chloride (98-107) mmol/L Carbon Dioxide (22-30) mmol/L Anion Gap mmol/L BUN (7-17) mg/dL Creatinine (0.52-1.04) mg/dL Est GFR (CKD-EPI)AfAm (>60 ml/min/1.73 sqM) Est GFR (CKD-EPI)NonAf (>60 ml/min/1.73 sqM) Glucose (74-99) mg/dL Calcium (8.4-10.2) mg/dL Total Bilirubin (0.2-1.3) mg/dL AST (14-36) U/L ALT (4-34) U/L Alkaline Phosphatase (38-126) U/L Troponin I <0.012 (0.000-0.034) ng/mL NT-Pro-B Natriuret Pep pg/mL Total Protein (6.3-8.2) g/dL Albumin (3.5-5.0) g/dL Urine Color Yellow Urine Appearance Cloudy H (Clear) Urine pH 6.0 (5.0-8.0) Ur Specific [place] 1.022 (1.001-1.035) Urine Protein 1+ H (Negative) Urine Glucose (UA) Negative (Negative) Urine Ketones Negative (Negative) Urine Blood Trace H (Negative) Urine Nitrite Negative (Negative) Urine Bilirubin Negative (Negative) Urine Urobilinogen <2.0 (<2.0) mg/dL Ur Leukocyte Esterase Large H (Negative) Urine RBC 13 H (0-5) /hpf Urine WBC 40 H (0-5) /hpf Ur Squamous Epith Cells 2 (0-4) /hpf Calcium Oxalate Crystal Moderate H (None) /hpf Urine Bacteria Rare H (None) /hpf Hyaline Casts 26 H (0-2) /lpf Urine Mucus Moderate H (None) /hpf Influenza Type A (PCR) Not Detected (Not Detectd) Influenza Type B (PCR) Not Detected (Not Detectd) RSV (PCR) Not Detected (Not Detectd) SARS-CoV-2 (PCR) Not Detected (Not Detectd) Disposition <Lexi Collins - Last Filed: 11/11/23 17:12> Is patient prescribed a controlled substance at d/c from ED?: No Time of Disposition: 20:12 <Edin Muse - Last Filed: 11/11/23 20:19> Clinical Impression: Hypotension Disposition: HOME SELF-CARE Condition: Good Instructions (If sedation given, give patient instructions): Dizziness (ED) Additional Instructions: Please resume hydralazine and metoprolol that she were previously taking. Please discontinue Coreg and amlodipine. Please follow up with Dr. Osuna, please return to the emergency department with any new or worsening concerns. Referrals: Evangelista Osuna DO [Primary Care Provider] - 1-2 days
[2023-11-11 17:37] LABS: Basophils % (A) 0 %; Eosinophils % (A) 0 %; HCT 36.8 % (34.0-46.0); HGB 12.8 gm/dL (11.4-16.0); Lymphocytes # (A) 0.5 k/uL (1.0-4.8); Lymphocytes % (A) 9 %; MCH 32.3 pg (25.0-35.0); MCHC 34.7 g/dL (31.0-37.0); MCV 92.9 fL (80.0-100.0); Monocytes # (A) 0.4 k/uL (0-1.0); Monocytes % (A) 9 %; Neutrophils % (A) 80 %; Platelet Count 180 k/uL (150-450); RBC 3.96 m/uL (3.80-5.40); RDW 13.3 % (11.5-15.5); WBC 5.1 k/uL (3.8-10.6)
[2023-11-11 17:49] LABS: INR 1.9 (<1.2); Prothrombin Time 19.5 sec (10.0-12.5)
[2023-11-11 17:50] LABS: ALT 45 U/L (4-34); AST 46 U/L (14-36); African American GFR (CKD) 77 (>60 ml/min/1.73 sqM); Alkaline Phosphatase 49 U/L (38-126); Anion Gap 11 mmol/L; Blood Urea Nitrogen 18 mg/dL (7-17); Calcium 9.2 mg/dL (8.4-10.2); Carbon Dioxide 24 mmol/L (22-30); Chloride 96 mmol/L (98-107); Glucose 94 mg/dL (74-99); Non-African American GFR(CKD) 67 (>60 ml/min/1.73 sqM); Potassium 4.1 mmol/L (3.5-5.1); Sodium 131 mmol/L (137-145); Total Bilirubin 0.4 mg/dL (0.2-1.3); Total Protein 6.5 g/dL (6.3-8.2)
[2023-11-11 17:57] LABS: Appearance,Urine Cloudy (Clear); Bacteria,Urine Rare /hpf; Bilirubin,Urine Negative (Negative); Blood,Urine Trace (Negative); Calcium Oxalate Crystals,Urine Moderate /hpf; Color,Urine Yellow; Glucose,Urine (UA) Negative (Negative); Hyaline Casts,Urine 26 /lpf (0-2); Ketones,Urine Negative (Negative); Leukocyte Esterase,Urine Large (Negative); Mucus,Urine Moderate /hpf; Nitrite,Urine Negative (Negative); Protein,Urine 1+ (Negative); RBC,Urine 13 /hpf (0-5); Specific Gravity,Urine 1.022 (1.001-1.035); Squamous Epithelial Cell,Urine 2 /hpf (0-4); Urobilinogen,Urine <2.0 mg/dL (<2.0); WBC,Urine 40 /hpf (0-5)
[2023-11-11 17:58] LABS: NT-Pro-B-Type Natriuretic Pept 1070 pg/mL
--- NOTE | 2023-11-11 18:31 | XR ---
EXAMINATION TYPE: XR chest 2V DATE OF EXAM: 11/11/2023 5:50 PM CLINICAL INDICATION:Female, 83 years old with history of dizziness, hypotension; COMPARISON: Chest radiographs from 08/17/2018. TECHNIQUE: XR chest 2V Frontal and lateral views of the chest. FINDINGS: Lungs/Pleura: Prominent interstitial lung markings are seen scattered throughout the lungs with ghada ening of the diaphragm and increased lucency of the lung apices. No evidence of focal consolidation, pneumothorax or pleural effusion. Pulmonary vascularity: Unremarkable. Heart/mediastinum: Cardiomediastinal silhouette is enlarged and stable. Musculoskeletal: No acute osseous pathology. Other findings: None IMPRESSION: 1. Chronic changes without acute pulmonary process. No significant change from prior. 2. COPD.
--- NOTE | 2023-11-11 18:45 | CT ---
EXAMINATION TYPE: CT brain wo con CT DLP: 1050.5 mGycm, Automated exposure control for dose reduction was used. DATE OF EXAM: 11/11/2023 5:40 PM COMPARISON: 05/21/2020. CLINICAL INDICATION:Female, 83 years old with history of dizziness, Dizziness and weakness. TECHNIQUE: Brain: Axial CT images of the brain were obtained with coronal and sagittal reformats created and rev iewed. Contrast used: None. Oral contrast used: None. FINDINGS: Brain: Extra-axial spaces: No abnormal extra-axial fluid collections. Ventricular system: Dilatation in proportion to cerebral atrophy. Cerebral parenchyma: Cerebral atrophy. No acute intraparenchymal hemorrhage or mass effect. The altman -white junction is well differentiated. Scattered hypoattenuating areas are seen within the white mat ter. Cerebellum: Cerebellar atrophy Mass effect: No evidence of midline shift. Intracranial vasculature: Atherosclerotic calcifications of the intracranial vessels. Soft tissues: Normal. Calvarium/osseous structures: No depressed skull fracture. Paranasal sinuses and mastoid air cells: Mild scattered paranasal sinus disease. Visualized orbits: Orbital contents are intact. IMPRESSION: 1. No acute intracranial process. 2. Nonspecific white matter changes, likely secondary to chronic small vessel ischemic disease.
[2023-11-11 19:39] VITALS: RESP 18
[2023-11-11] MEDS ORDERED: ACETAMINOPHEN TAB 500 MG TAB PO STA (20:17)
[2023-11-11 21:03] VITALS: BP 217/83; PULSE 58; TEMP 97.8
== END 2023-11-11 21:01 | disposition home or self-care (01) ==
LOC: EC 16:41
DX: I95.9 Hypotension, unspecified (principal); R00.1 Bradycardia, unspecified; I10 Essential (primary) hypertension; I48.91 Unspecified atrial fibrillation; E78.5 Hyperlipidemia, unspecified; Z79.01 Long term (current) use of anticoagulants; Z79.899 Other long term (current) drug therapy; Z20.822 Contact with and (suspected) exposure to COVID-19
CPT/HCPCS: 36415; 70450; 71046; 80053; 81001; 83880; 84484; 85025; 85610; 87636; 93005; 99284

== ENCOUNTER 2024-08-01 09:27 | Emergency (ER) | payer MEDICARE, BC ==
[2024-08-01 10:09] LABS: Basophils % (A) 0 %; Eosinophils % (A) 0 %; HCT 36.4 % (34.0-46.0); HGB 12.4 gm/dL (11.4-16.0); Lymphocytes # (A) 0.4 k/uL (1.0-4.8); Lymphocytes % (A) 7 %; MCH 31.2 pg (25.0-35.0); MCHC 33.9 g/dL (31.0-37.0); Mean Platelet Volume 7.5; Monocytes # (A) 0.5 k/uL (0-1.0); Monocytes % (A) 9 %; Neutrophils # (A) 4.6 k/uL (1.3-7.7); Neutrophils % (A) 82 %; Platelet Count 211 k/uL (150-450); RBC 3.96 m/uL (3.80-5.40); WBC 5.6 k/uL (3.8-10.6)
[2024-08-01 10:23] LABS: INR 3.7 (<1.2); Partial Thromboplastin Time 40.5 sec (22.0-30.0)
[2024-08-01 10:36] LABS: ALT 28 U/L (4-34); AST 37 U/L (14-36); African American GFR (CKD) >90 (>60 ml/min/1.73 sqM); Alkaline Phosphatase 40 U/L (38-126); Anion Gap 7 mmol/L; Blood Urea Nitrogen 15 mg/dL (7-17); Calcium 9.1 mg/dL (8.4-10.2); Carbon Dioxide 25 mmol/L (22-30); Chloride 98 mmol/L (98-107); Glucose 118 mg/dL (74-99); Non-African American GFR(CKD) 83 (>60 ml/min/1.73 sqM); Potassium 3.3 mmol/L (3.5-5.1); Sodium 130 mmol/L (137-145); Total Bilirubin 0.7 mg/dL (0.2-1.3); Total Protein 6.4 g/dL (6.3-8.2)
[2024-08-01 10:44] LABS: NT-Pro-B-Type Natriuretic Pept 7440 pg/mL
--- NOTE | 2024-08-01 11:24 | XR ---
EXAMINATION TYPE: XR chest 2V DATE OF EXAM: 08/01/2024 COMPARISON: 11/11/2023 TECHNIQUE: PA and lateral views submitted. HISTORY: Difficulty breathing FINDINGS: The lungs are clear and there is no pneumothorax, pleural effusion, or focal pneumonia. Heart size normal and no overt failure. Osseous structures demonstrate hypertrophic and degenerative changes of the spine. Linear changes left lung base suggesting scar or atelectasis. Postcholecystectomy clips. A rthropathy of the shoulders. Atherosclerotic change aorta. Mitral annular calcifications. IMPRESSION: 1. No acute process. [facility], , 08/01/2024 11:22 AM
[2024-08-01 12:05] VITALS: RESP 18
[2024-08-01] MEDS: SODIUM CHLORIDE 0.9% 500 ML 500 ML IV ONE (12:08)
[2024-08-01 13:10] LABS: Appearance,Urine Clear (Clear); Bilirubin,Urine Negative (Negative); Blood,Urine Negative (Negative); Color,Urine Colorless; Glucose,Urine (UA) Negative (Negative); Ketones,Urine Negative (Negative); Leukocyte Esterase,Urine Moderate (Negative); Nitrite,Urine Negative (Negative); Protein,Urine Negative (Negative); RBC,Urine 2 /hpf (0-5); Specific Gravity,Urine 1.008 (1.001-1.035); Squamous Epithelial Cell,Urine 1 /hpf (0-4); Urobilinogen,Urine <2.0 mg/dL (<2.0); WBC,Urine 3 /hpf (0-5)
--- NOTE | 2024-08-01 13:46 | ED ---
SOB HPI - General Chief Complaint: Shortness of Breath Stated Complaint: Anxiety Time Seen by Provider: 08/01/24 09:39 Source: EMS Mode of arrival: EMS Limitations: no limitations - History of Present Illness Initial Comments: 83-year-old female presents emergency department reporting weakness and shortness of breath. Family is at bedside and helps provide the history. States that the patient has had decreased energy and shortness of breath over the past day. Today the patient was having some difficulty ambulating due to her weakness. She felt short of breath. No chest pain. EMS was called and found the patient to have normal saturations with clear lung sounds. No increased work of breathing. She denies any sick contacts. No fevers, chills or cough. No nausea or vomiting. No abdominal pain. She denies headache, ataxia. No lateralizing weakness. No other alleviating, precipitating or modifying factors - Related Data Home Medications Medication Instructions Recorded Confirmed Alendronate Sodium [Fosamax] 70 mg PO WE 07/19/17 08/01/24 OXcarbazepine [Trileptal] 150 mg PO BID 07/19/17 08/01/24 Simvastatin [Zocor] 10 mg PO HS 07/19/17 08/01/24 Metoprolol Tartrate [Lopressor] 25 mg PO BID 04/22/19 08/01/24 Warfarin [Coumadin] 3 mg PO [id number]@209904/22/19 08/01/24 Warfarin [Coumadin] 4.5 mg PO [id number]@209904/22/19 08/01/24 Benazepril HCl 40 mg PO DAILY 01/09/21 08/01/24 Dicyclomine [Bentyl] 10 mg PO QID PRN 01/09/21 08/01/24 Cholecalciferol (Vitamin D3) 125 mcg PO DAILY 03/28/21 08/01/24 [Vitamin D3 (5000 Iu)] amLODIPine [Norvasc] 10 mg PO DAILY 03/28/21 08/01/24 Biotin [Biotin Disolve] 5,000 mcg PO DAILY 04/18/21 08/01/24 Furosemide [Lasix] 20 mg PO DAILY 08/01/24 08/01/24 Multivit-Min/FA/Lycopen/Lutein 1 tab PO DAILY 08/01/24 08/01/24 [Centrum Silver Tablet] Mv-Mn/Om3/Dha/Epa/Fish/Lut/Jeana 1 cap PO DAILY 08/01/24 08/01/24 [Ocuvite Adult 50 Plus Softgel] Pantoprazole Sodium [Protonix] 20 mg PO DAILY 08/01/24 08/01/24 hydrALAZINE HCL [Apresoline] 50 mg PO TID 08/01/24 08/01/24 metroNIDAZOLE [metroNIDAZOLE 0.75%] 1 applic TOPICAL BID PRN 08/01/24 08/01/24 Allergies Allergy/AdvReac Type Severity Reaction Status Date / Time No Known Allergies Allergy Verified 08/01/24 14:03 Review of Systems ROS Statement: Those systems with pertinent positive or pertinent negative responses have been documented in the HPI. ROS Other: All systems not noted in ROS Statement are negative. Past Medical History Past Medical History: Atrial Fibrillation, Deep Vein Thrombosis (DVT), GERD/Reflux, Hyperlipidemia, Hypertension, Seizure Disorder, Skin Disorder, Thyroid Disorder Additional Past Medical History / Comment(s): Irregular heart beat, last seizure 30-40 yrs ago, goiter, bronchitis, sinus headaches, diverticulosis, diarrhea, hemorrhoids, vitamin D deficiency, osteoporosis, occ. vertigo, hiatal hernia, rosacea., low sodium levels (2023) History of Any Multi-Drug Resistant Organisms: None Reported Past Surgical History: Breast Surgery, Cholecystectomy, Tonsillectomy Additional Past Surgical History / Comment(s): Colonoscopies, bilateral breast reduction. Past Anesthesia/Blood Transfusion Reactions: No Reported Reaction Past Psychological History: Anxiety Smoking Status: Never smoker Past Alcohol Use History: None Reported Past Drug Use History: None Reported - Past Family History Mother Family Medical History: CVA/TIA Additional Family Medical History / Comment(s): Mother had TIAs and at the age of 100yrs from a CVA. Father Family Medical History: COPD Additional Family Medical History / Comment(s): Father had heart problems. He from emphysema at the age of 70yrs. General Exam Limitations: no limitations General appearance: alert, in no apparent distress Head exam: Present: atraumatic, normocephalic, normal inspection Eye exam: Present: normal appearance, PERRL, EOMI. Absent: scleral icterus, conjunctival injection, periorbital swelling ENT exam: Present: normal exam, mucous membranes moist Neck exam: Present: normal inspection. Absent: tenderness, meningismus, lymphadenopathy Respiratory exam: Present: normal lung sounds bilaterally. Absent: respiratory distress, wheezes, rales, rhonchi, stridor Cardiovascular Exam: Present: regular rate, normal rhythm, normal heart sounds. Absent: systolic murmur, diastolic murmur, rubs, gallop, clicks GI/Abdominal exam: Present: soft, normal bowel sounds. Absent: distended, tenderness, guarding, rebound, rigid Extremities exam: Present: normal inspection, full ROM, normal capillary refill. Absent: tenderness, pedal edema, joint swelling, calf tenderness Back exam: Present: normal inspection Neurological exam: Present: alert, oriented X3, CN II-XII intact Psychiatric exam: Present: normal affect, normal mood Skin exam: Present: warm, dry, intact, normal color. Absent: rash Course Vital Signs 08/01/24 08/01/24 08/01/24 09:30 11:57 15:12 Temperature 98.1 F 98.0 F Pulse Rate 87 64 66 Respiratory 20 18 18 Rate Blood Pressure 119/79 142/66 134/58 O2 Sat by Pulse 96 94 L 97 Oximetry Medical Decision Making - Medical Decision Making Was pt. sent in by a medical professional or institution (, PA, CHEMISTRY PROFESSOR, urgent care, hospital, or correction...) When possible be specific @ -No Did you speak to anyone other than the patient for history (EMS, parent, family, police, friend...)? What history was obtained from this source @ -Spoke with EMS and family at bedside Did you review nursing and triage notes (agree or disagree)? Why? @ -I reviewed and agree with nursing and triage notes Were old charts reviewed (outside hosp., previous admission, EMS record, old EKG, old radiological studies, urgent care reports/EKG's, correction records)? Report findings @ -No old charts were reviewed Differential Diagnosis (chest pain, altered mental status, abdominal pain women, abdominal pain men, vaginal bleeding, weakness, fever, dyspnea, syncope, head ache, dizziness, GI bleed, back pain, seizure, CVA, palpatations, mental health, musculoskeletal)? @ -Differential Weakness: Hypoglycemia, shock, sepsis, hyponatremia, anemia, infection, ME, ETOH, adverse medicine reaction, overdose, stroke, this is not meant to be an all-inclusive list. EKG interpreted by me (3pts min.). @ -Yes and demonstrates A-fib with a rate of 87. QRS 106. QTc of 421. No acute ST segment elevations X-rays interpreted by me (1pt min.). @ -Yes and demonstrates no acute process CT interpreted by me (1pt min.). @ -None done U/S interpreted by me (1pt. min.). @ -None done What testing was considered but not performed or refused? (CT, X-rays, U/S, labs)? Why? @ -None What meds were considered but not given or refused? Why? @ -None Did you discuss the management of the patient with other professionals (professionals i.e. DrCass, PA, CHEMISTRY PROFESSOR, lab, RT, psych nurse, criminal justice social worker, civil lawyer, teacher, bomb squad officer, sample case porter)? Give summary @ -Spoke with Dr. Osuna who will follow the patient in the office Was smoking cessation discussed for >3mins.? @ -No Was critical care preformed (if so, how long)? @ -No Were there social determinants of health that impacted care today? How? (Homelessness, low income, unemployed, alcoholism, drug addiction, transportation, low edu. Level, literacy, decrease access to med. care, senior care, rehab)? @ -No Was there de-escalation of care discussed even if they declined (Discuss DNR or withdrawal of care, Hospice)? DNR status @ -No What co-morbidities impacted this encounter? (DM, HTN, Smoking, COPD, CAD, Cancer, CVA, ARF, Chemo, Hep., AIDS, mental health diagnosis, sleep apnea, morbid obesity)? @ -None Was patient admitted / discharged? Hospital course, mention meds given and route, prescriptions, significant lab abnormalities, going to OR and other pertinent info. @ -Upon arrival patient seen and evaluated in room 24. Thorough history and physical exam was performed. Patient does not demonstrate any signs of work of breathing. IV is established and laboratory studies are conducted. Chest x-ray is performed. Upon return the results they are discussed with the patient. I spoke with Dr. Osuna. He states that he will follow-up with the patient in the office. Patient is to call the office in the morning to make an appointment. Increase fluid intake. Patient is to hold her Coumadin for the next 2 days as her Coumadin level is too high. Return for any new or worsening symptoms. Patient was agreeable to plan was discharged in stable condition Undiagnosed new problem with uncertain prognosis? @ -Yes Drug Therapy requiring intensive monitoring for toxicity (Heparin, Nitro, Insulin, Cardizem)? @ -No Were any procedures done? @ -No Diagnosis/symptom? @ -Acute weakness, acute dyspnea Acute, or Chronic, or Acute on Chronic? @ -Acute Uncomplicated (without systemic symptoms) or Complicated (systemic symptoms)? @ -Complicated Side effects of treatment? @ -No Exacerbation, Progression, or Severe Exacerbation? @ -No Poses a threat to life or bodily function? How? (Chest pain, USA, ME, pneumonia, PE, COPD, DKA, ARF, appy, cholecystitis, CVA, Diverticulitis, Homicidal, Suicidal, threat to staff... and all critical care pts) @ -No - Lab Data Result diagrams: 08/01/24 09:54 08/01/24 09:54 Lab Results 08/01/24 08/01/24 08/01/24 Range/Units 09:54 09:54 09:54 WBC 5.6 (3.8-10.6) k/uL RBC 3.96 (3.80-5.40) m/uL Hgb 12.4 (11.4-16.0) gm/dL Hct 36.4 (34.0-46.0) % MCV 92.0 (80.0-100.0) fL MCH 31.2 (25.0-35.0) pg MCHC 33.9 (31.0-37.0) g/dL RDW 13.0 (11.5-15.5) % Plt Count 211 (150-450) k/uL MPV 7.5 Neutrophils % 82 % Lymphocytes % 7 % Monocytes % 9 % Eosinophils % 0 % Basophils % 0 % Neutrophils # 4.6 (1.3-7.7) k/uL Lymphocytes # 0.4 L (1.0-4.8) k/uL Monocytes # 0.5 (0-1.0) k/uL Eosinophils # 0.0 (0-0.7) k/uL Basophils # 0.0 (0-0.2) k/uL PT 36.0 H (10.0-12.5) sec INR 3.7 H (<1.2) APTT 40.5 H (22.0-30.0) sec Sodium 130 L (137-145) mmol/L Potassium 3.3 L (3.5-5.1) mmol/L Chloride 98 (98-107) mmol/L Carbon Dioxide 25 (22-30) mmol/L Anion Gap 7 mmol/L BUN 15 (7-17) mg/dL Creatinine 0.67 (0.52-1.04) mg/dL Est GFR (CKD-EPI)AfAm >90 (>60 ml/min/1.73 sqM) Est GFR (CKD-EPI)NonAf 83 (>60 ml/min/1.73 sqM) Glucose 118 H (74-99) mg/dL Plasma Lactic Acid Yoshi (0.7-2.0) mmol/L Calcium 9.1 (8.4-10.2) mg/dL Total Bilirubin 0.7 (0.2-1.3) mg/dL AST 37 H (14-36) U/L ALT 28 (4-34) U/L Alkaline Phosphatase 40 (38-126) U/L Troponin I (0.000-0.034) ng/mL NT-Pro-B Natriuret Pep 7440 pg/mL Total Protein 6.4 (6.3-8.2) g/dL Albumin 4.0 (3.5-5.0) g/dL Urine Color Urine Appearance (Clear) Urine pH (5.0-8.0) Ur Specific [place] (1.001-1.035) Urine Protein (Negative) Urine Glucose (UA) (Negative) Urine Ketones (Negative) Urine Blood (Negative) Urine Nitrite (Negative) Urine Bilirubin (Negative) Urine Urobilinogen (<2.0) mg/dL Ur Leukocyte Esterase (Negative) Urine RBC (0-5) /hpf Urine WBC (0-5) /hpf Ur Squamous Epith Cells (0-4) /hpf Influenza Type A (PCR) (Not Detectd) Influenza Type B (PCR) (Not Detectd) RSV (PCR) (Not Detectd) SARS-CoV-2 (PCR) (Not Detectd) 08/01/24 08/01/24 08/01/24 Range/Units 09:54 09:54 11:54 WBC (3.8-10.6) k/uL RBC (3.80-5.40) m/uL Hgb (11.4-16.0) gm/dL Hct (34.0-46.0) % MCV (80.0-100.0) fL MCH (25.0-35.0) pg MCHC (31.0-37.0) g/dL RDW (11.5-15.5) % Plt Count (150-450) k/uL MPV Neutrophils % % Lymphocytes % % Monocytes % % Eosinophils % % Basophils % % Neutrophils # (1.3-7.7) k/uL Lymphocytes # (1.0-4.8) k/uL Monocytes # (0-1.0) k/uL Eosinophils # (0-0.7) k/uL Basophils # (0-0.2) k/uL PT (10.0-12.5) sec INR (<1.2) APTT (22.0-30.0) sec Sodium (137-145) mmol/L Potassium (3.5-5.1) mmol/L Chloride (98-107) mmol/L Carbon Dioxide (22-30) mmol/L Anion Gap mmol/L BUN (7-17) mg/dL Creatinine (0.52-1.04) mg/dL Est GFR (CKD-EPI)AfAm (>60 ml/min/1.73 sqM) Est GFR (CKD-EPI)NonAf (>60 ml/min/1.73 sqM) Glucose (74-99) mg/dL Plasma Lactic Acid Yoshi 1.6 (0.7-2.0) mmol/L Calcium (8.4-10.2) mg/dL Total Bilirubin (0.2-1.3) mg/dL AST (14-36) U/L ALT (4-34) U/L Alkaline Phosphatase (38-126) U/L Troponin I <0.012 (0.000-0.034) ng/mL NT-Pro-B Natriuret Pep pg/mL Total Protein (6.3-8.2) g/dL Albumin (3.5-5.0) g/dL Urine Color Urine Appearance (Clear) Urine pH (5.0-8.0) Ur Specific [place] (1.001-1.035) Urine Protein (Negative) Urine Glucose (UA) (Negative) Urine Ketones (Negative) Urine Blood (Negative) Urine Nitrite (Negative) Urine Bilirubin (Negative) Urine Urobilinogen (<2.0) mg/dL Ur Leukocyte Esterase (Negative) Urine RBC (0-5) /hpf Urine WBC (0-5) /hpf Ur Squamous Epith Cells (0-4) /hpf Influenza Type A (PCR) Not Detected (Not Detectd) Influenza Type B (PCR) Not Detected (Not Detectd) RSV (PCR) Not Detected (Not Detectd) SARS-CoV-2 (PCR) Not Detected (Not Detectd) 08/01/24 Range/Units 11:54 WBC (3.8-10.6) k/uL RBC (3.80-5.40) m/uL Hgb (11.4-16.0) gm/dL Hct (34.0-46.0) % MCV (80.0-100.0) fL MCH (25.0-35.0) pg MCHC (31.0-37.0) g/dL RDW (11.5-15.5) % Plt Count (150-450) k/uL MPV Neutrophils % % Lymphocytes % % Monocytes % % Eosinophils % % Basophils % % Neutrophils # (1.3-7.7) k/uL Lymphocytes # (1.0-4.8) k/uL Monocytes # (0-1.0) k/uL Eosinophils # (0-0.7) k/uL Basophils # (0-0.2) k/uL PT (10.0-12.5) sec INR (<1.2) APTT (22.0-30.0) sec Sodium (137-145) mmol/L Potassium (3.5-5.1) mmol/L Chloride (98-107) mmol/L Carbon Dioxide (22-30) mmol/L Anion Gap mmol/L BUN (7-17) mg/dL Creatinine (0.52-1.04) mg/dL Est GFR (CKD-EPI)AfAm (>60 ml/min/1.73 sqM) Est GFR (CKD-EPI)NonAf (>60 ml/min/1.73 sqM) Glucose (74-99) mg/dL Plasma Lactic Acid Yoshi (0.7-2.0) mmol/L Calcium (8.4-10.2) mg/dL Total Bilirubin (0.2-1.3) mg/dL AST (14-36) U/L ALT (4-34) U/L Alkaline Phosphatase (38-126) U/L Troponin I (0.000-0.034) ng/mL NT-Pro-B Natriuret Pep pg/mL Total Protein (6.3-8.2) g/dL Albumin (3.5-5.0) g/dL Urine Color Colorless Urine Appearance Clear (Clear) Urine pH 7.0 (5.0-8.0) Ur Specific [place] 1.008 (1.001-1.035) Urine Protein Negative (Negative) Urine Glucose (UA) Negative (Negative) Urine Ketones Negative (Negative) Urine Blood Negative (Negative) Urine Nitrite Negative (Negative) Urine Bilirubin Negative (Negative) Urine Urobilinogen <2.0 (<2.0) mg/dL Ur Leukocyte Esterase Moderate H (Negative) Urine RBC 2 (0-5) /hpf Urine WBC 3 (0-5) /hpf Ur Squamous Epith Cells 1 (0-4) /hpf Influenza Type A (PCR) (Not Detectd) Influenza Type B (PCR) (Not Detectd) RSV (PCR) (Not Detectd) SARS-CoV-2 (PCR) (Not Detectd) Disposition Clinical Impression: Dyspnea Disposition: HOME SELF-CARE Condition: Stable Instructions (If sedation given, give patient instructions): Shortness of Breath (ED) Additional Instructions: Dr. Osuna would like to see you this week. Please call his office to make an appointment. Do not take your warfarin tonight or tomorrow night. Do not take your blood pressure medications if your blood pressure is lower than 140/80. Return for any new or worsening symptoms Is patient prescribed a controlled substance at d/c from ED?: No Referrals: Evangelista Osuna DO [Primary Care Provider] - 1-2 days Time of Disposition: 14:48
[2024-08-01 15:14] VITALS: BP 134/58; PULSE 66; TEMP 98
== END 2024-08-01 15:29 | disposition home or self-care (01) ==
LOC: EC 09:27
DX: F41.1 Generalized anxiety disorder
CPT/HCPCS: 36415; 71046; 80053; 81001; 83605; 83880; 84484; 85025; 85610; 85730; 87636; 93005; 99285

== ENCOUNTER → 2025-01-02 | Outpatient (CLI) | payer MEDICARE, BC ==
--- NOTE | 2025-01-02 12:22 | XR ---
EXAMINATION TYPE: XR Hip Complete RT DATE OF EXAM: 01/02/2025 CLINICAL HISTORY: Pain after fall injury. TECHNIQUE: AP and frogleg views of the right hip are obtained. COMPARISON: None. FINDINGS: There is no acute fracture/dislocation evident in the right hip. The joint space in the r ight hip appears within normal limits. Mild acetabular spurring is seen. The overlying soft tissue a ppears unremarkable. IMPRESSION: There is no acute fracture or dislocation in the right hip. [facility], , 01/02/2025 12:20 PM
== END | disposition home or self-care (01) ==
LOC: RADXRMAIN 11:08
PROVIDERS: ATTEND Family Medicine
DX: M25.551 Pain in right hip (principal); S79.911A Unspecified injury of right hip, initial encounter; W19.XXXA Unspecified fall, initial encounter
CPT/HCPCS: 73502